=== PATIENT | male | born 1940 | race Caucasian/White ===

== ENCOUNTER 2020-10-13 10:40 | Emergency (ER) | payer OTHER, MEDICARE, SELFPAY ==
[2020-10-13 11:45] VITALS: BP 133/78; PULSE 122; RESP 20; TEMP 36.8; O2SAT 97; BMI 27.9
--- NOTE | 2020-10-13 12:02 | ED.MALEGU ---
HPI - Male Genitourinary General Chief complaint: Urogenital-Male Stated complaint: took too much laxitive. experiencing pain Time Seen by Provider: 10/13/20 12:01 Source: patient and family (spouse) Mode of arrival: ambulatory Limitations: no limitations History of Present Illness HPI Narrative: 80-YEAR-OLD MALE CAME IN FOR EVALUATION OF PAINFUL URINATION. PATIENT HAVING DIFFICULTY URINATION AND UNABLE TO URINATE, FEELING DISTENDED AND PAINFUL IN THE SUPRAPUBIC AREA. OTHERWISE NO FEVER, NO CHILLS. NO UPPER ABDOMINAL PAIN. NO NAUSEA, NO VOMITING. Related Data Previous Rx's Medication Instructions Recorded cefuroxime axetil 500 mg tablet 500 mg PO Q12H #20 tab 10/13/20 Allergies Allergy/AdvReac Type Severity Reaction Status Date / Time mirabegron [From Myrbetriq] Allergy Severe rash Verified 10/13/20 13:35 Opioids - Morphine Analogues Allergy Intermediate rash Verified 10/13/20 13:35 oxybutynin Allergy Intermediate rash Verified 10/13/20 13:35 Review of Systems Review of Systems: ALL OTHER SYSTEMS ARE REVIEWED AND ARE NEGATIVE CONSTITUTIONAL: REPORTS PER HPI AND REPORTS NO ADDITIONAL CONSTITUTIONAL COMPLAINTS EYES: REPORTS PER HPI AND REPORTS NO ADDITIONAL EYE COMPLAINTS REPORTS SYSTEM REVIEWED AND NO ADDITIONAL COMPLAINTS, EXCEPT DOCUMENTED CARDIOVASCULAR: REPORTS PER HPI AND REPORTS NO ADDITIONAL CARDIOVASCULAR COMPLAINTS RESPIRATORY: REPORTS PER HPI AND REPORTS NO ADDITIONAL RESPIRATORY COMPLAINTS GASTROINTESTINAL: REPORTS PER HPI AND REPORTS NO ADDITIONAL GASTROINTESTINAL COMPLAINTS GENITOURINARY: REPORTS NO ADDITIONAL FEMALE GENITOURINARY COMPLAINTS MUSCULOSKELETAL: REPORTS NO ADDITIONAL MUSCULOSKELETAL COMPLAINTS SKIN/BREAST: REPORTS SYSTEM REVIEWED AND NO ADDITIONAL COMPLAINTS, EXCEPT DOCU PSYCHIATRIC: REPORTS NO ADDITIONAL PSYCHIATRIC COMPLAINTS ENDOCRINE: REPORTS NO ADDITIONAL ENDOCRINE COMPLAINTS HEMATOLOGIC/LYMPHATIC: REPORTS NO ADDITIONAL HEMATOLOGIC/LYMPHATIC COMPLAINTS ALLERGIC/IMMUNOLOGIC: REPORTS NO ADDITIONAL ALLERGIC/IMMUNOLOGIC COMPLAINTS REPORTS SYSTEM REVIEWED AND NO ADDITIONAL COMPLAINTS, EXCEPT DOCUMENTED AND REPORTS ABNORMAL SPEECH PRESENT FOR[facility]LY [facility] Past Medical History Medical History Cholecystitis GERD (gastroesophageal reflux disease) HLD (hyperlipidemia) HTN (hypertension) Parkinsons Social History Social History Alcohol intake: never Smoked in Last 30 Days: No Use of substances other than those prescribed or required for medical reasons: No Advance Directives: Yes Advance Directives Information Provided: Yes Advance Directives on File: No Physical Exam Vital Signs: Vital Signs: Last Vital Signs Temp 98.2 F 10/13/20 11:45 Pulse 122 H 10/13/20 11:45 Resp 20 10/13/20 11:45 BP 133/78 10/13/20 11:45 Pulse Ox 97 10/13/20 11:45 Body Mass Index 27.9 VITAL SIGNS HAVE BEEN REVIEWED APPEARED TO BE CORRECT. BLOOD PRESSURE NORMAL. HEART RATE ELEVATED. RESPIRATION RATE NORMAL. TEMPERATURE NORMAL. OXYGEN SATURATION NORMAL. Appearance: Alert. Oriented X3. No acute distress. Head: Normal external exam. Normocephalic. Atraumatic. No Chiang signs noted. No raccoon eyes noted Eyes: PERRLA. EOMI. Conjunctiva and sclera normal. Eyelids normal. ENT: TM's Normal. Pharynx normal. Uvula midline. Moist mucous membranes. No trismus noted. No drooling noted. No muffled voice noted. Neck: Normal inspection. Neck supple. FROM. No adenopathy. Thyroid Normal. No meningeal signs. No neck mass noted. CVS: Normal heart rate and rhythm. Heart sound normal. No murmurs noted. Pulses normal throughout. Respiratory: No respiratory distress. Painless inspiration. Breath sounds normal. No wheezes/rales/rhonchi noted. Chest nontender. No accessory muscle usage noted or decreased air movement noted. Abdomen: Soft, suprapubic distension, suprapubic tenderness, no rebound tenderness, no guarding. Bowel sounds normal in all 4 quadrants. No distention noted. No organomegaly noted. No visible injury noted. Back: No CVA tenderness. Full range of motion noted. Skin: Skin warm and dry. Normal skin color. Normal skin turgor. No rashes/lesions/lacerations noted. Extremities: No lower extremity edema. Extremities exhibit normal range of motion. Extremities nontender. Neuro: Oriented X 3. No motor deficit. No sensory deficit. Reflexes normal. : Other: Uncircumcised penis tendon rash, no tenderness Kaushik no discharge. Course Course Course Narrative: Assessment and plan. The attention, if the head acid deficiency distal fine cyst in the, patient also has a UTI well starting the antibiotic. Follow-up with urologist. Patient does not meet criteria for SIRS, slight leukocytosis probably secondary to mild UTi, mild hyponatremia. MDM - Male Genitourinary Lab Data Attestation: I reviewed the patient's lab results. Result diagrams: 10/13/20 12:44 10/13/20 12:44 Labs: Lab Results 10/13/20 10/13/20 10/13/20 Range/Units 12:44 12:44 12:46 WBC 11.7 H (4.8-10.8) X10*3/uL RBC 4.07 L (4.60-5.80) X10*6/uL Hgb 11.8 L (14.0-18.0) g/dl Hct 34.2 L (42-52) % MCV 84.0 (80-98) fL MCH 29.0 (27.0-33.0) pg MCHC 34.5 (31.0-36.0) g/dl RDW 13.2 (11.0-16.0) % Plt Count 365 (160-400) X10*3/uL MPV 9.5 (9.4-12.4) fL Immature Gran % (Auto) 0.4 (0.0-0.4) % Neut % (Auto) 83.3 H (45-73) % Lymph % (Auto) 6.0 L (20-40) % [place] % (Auto) 10.0 (2-11) % Eos % (Auto) 0.1 (0-4) % Baso % (Auto) 0.2 (0-2) % Lymph # (Auto) 0.7 L (1.2-4.9) X10*3/uL [place] # (Auto) 1.2 (0.1-1.2) X10*3/uL Eos # (Auto) 0.0 (0.0-0.4) X10*3/uL Baso # (Auto) 0.0 (0.0-0.2) X10*3/uL Abs Immat Gran (auto) 0.05 H (0.00-0.03) X10*3/uL Absolute Neuts (auto) 9.7 H (2.0-8.3) X10*3/uL Absolute Nucleated RBC 0.000 (0.0-0.012) X10*3/uL Nucleated RBC % (auto) 0.0 (0.0-0.2) /100WBC Sodium 130 L (135-145) mmol/L Potassium 4.0 (3.3-5.1) mmol/L Chloride 96 (96-108) mmol/L Carbon Dioxide 24 (22-29) mmol/L Anion Gap 14 (12-20) BUN 12 (9-16) mg/dL Creatinine 0.82 (0.5-1.4) mg/dL Estim Creat Clear Calc 68.4 Estimated GFR > 60 Random Glucose 130 H (60-115) mg/dL Calcium 8.8 (8.4-10.2) mg/dL Urine Color YELLOW Urine Appearance CLOUDY Urine pH 8.0 (5.0-8.0) Ur Specific [place] 1.015 (1.005-1.025) Urine Protein 1+ H (NEG-TRACE) MG/DL Urine Glucose (UA) NEG (NEG) MG/DL Urine Ketones NEG (NEG) MG/DL Urine Blood 2+ H (NEG) Urine Nitrite POS H (NEG) Ur Leukocyte Esterase 2+ H (NEG) Urine RBC 5-9 H (0) /HPF Urine WBC 76-150 H (0-4) /HPF Urine WBC Clumps NOTED Ur Squamous Epith Cells NONE /LPF Urine Bacteria TRACE /LPF Discharge Plan Discharge Clinical Impression: Acute urinary retention Patient Disposition: Home, Self-Care Instructions: Urinary Retention in Men (ED), Urinary Tract Infection in Men (ED), [place] Catheter Placement and Care (ED) Prescriptions: New cefuroxime axetil 500 mg tablet 500 mg PO Q12H Qty: 20 RF: 0 Referrals: Rayray Galvez MD [Physician] - 2 days
[2020-10-13 12:50] LABS: MANUAL DIFF FLAG NO
[2020-10-13 12:54] LABS: Glucose Urine UA NEG (NEG); Leukocyte Esterase Urine 2+ (NEG); Nitrite Urine POS (NEG); Specific Gravity - Urine 1.015 (1.005-1.025); UACC Culture Trigger YES; Urine Blood 2+ (NEG); Urine Ketones NEG (NEG); Urine Protein 1+ MG/DL (NEG-TRACE)
[2020-10-13 12:55] LABS: Basophils Percent Auto 0.2 % (0-2); Eosinophils Percent Auto 0.1 % (0-4); Hematocrit 34.2 % (42-52); Hemoglobin 11.8 g/dl (14.0-18.0); Imm Gran Abs Auto 0.05 X10*3/uL (0.00-0.03); Imm Gran Pct Auto 0.4 % (0.0-0.4); Lymphocytes Absolute Auto 0.7 X10*3/uL (1.2-4.9); Mean Corpuscular HGB Conc 34.5 g/dl (31.0-36.0); Mean Platelet Volume 9.5 fL (9.4-12.4); Monocytes Absolute Auto 1.2 X10*3/uL (0.1-1.2); Neutrophils Absolute Auto 9.7 X10*3/uL (2.0-8.3); Neutrophils Percent Auto 83.3 % (45-73); Platelet Count 365 X10*3/uL (160-400); Red Blood Count 4.07 X10*6/uL (4.60-5.80); Red Cell Distribution Width 13.2 % (11.0-16.0); White Blood Count 11.7 X10*3/uL (4.8-10.8)
[2020-10-13 12:55] LABS: Appearance Urine CLOUDY; Color Urine YELLOW
[2020-10-13 13:08] LABS: Bacteria Urine TRACE /LPF; WBC Clumps Urine NOTED
[2020-10-13 13:21] LABS: Anion Gap 14 (12-20); Blood Urea Nitrogen 12 mg/dL (9-16); Calcium 8.8 mg/dL (8.4-10.2); Carbon Dioxide 24 mmol/L (22-29); Chloride 96 mmol/L (96-108); Creatinine Clr Calc Pharmacy 68.4; Estimated Glomerular Filt Rate > 60; Glucose Random 130 mg/dL (60-115); Sodium 130 mmol/L (135-145)
--- NOTE | 2020-10-13 14:10 | PC.NURSE ---
educated pt and about catheter, leg bag, and regular drainage bag. teach back noted.
--- NOTE | 2020-10-14 08:25 | MHC.CM.ED ---
Late entry from 10/13/2020 at 16:00: Patient was in the ER due to urinary retention. Mark was placed. Patient has never had a mark before. Sonia GUERRERO requesting TAYA be arranged. Referral made to [facility].
== END 2020-10-13 14:10 | disposition home or self-care (01) ==
PROVIDERS: Emergency Provider Emergency Medicine
DX: R33.9 Retention of urine, unspecified (principal); N39.0 Urinary tract infection, site not specified; I10 Essential (primary) hypertension; G20 Parkinson's disease
CPT/HCPCS: 36415; 51702; 80048; 81001; 85025; 87086; 87088; 87186; 99284

== ENCOUNTER 2023-11-20 05:45 | Emergency (ER) | payer OTHER, SELFPAY ==
--- NOTE | ~2023-11-20 | XR_ITS ---
EXAMINATION: XR CHEST CLINICAL INFORMATION: Shortness of breath COMPARISON: None available. TECHNIQUE: Frontal view of the chest was obtained. FINDINGS: Evaluation of portions of the bilateral lung apices is limited by obscuration from overlying face. Multiple EKG leads and wires overlie the chest. The lungs are mildly hypoexpanded, greater hypoexpansion of the right lung compared to left. There is crowding of lung markings. Within the limits of study, no focal consolidation, changes of overt pulmonary edema, significant pleural effusions or pneumothorax are seen. Assessment of the cardiomediastinal silhouette is limited due to hypoexpansion of the chest. Borderline normal cardiac size versus mild cardiomegaly. XR/XR chest 1V IMPRESSION: Limited evaluation. The lungs are mildly hypoexpanded with crowding of lung markings. No convincing radiographic evidence of pneumonia or changes of overt pulmonary edema. Electronically signed by: Laurent Coronado MD 11/20/2023 07:13 AM EDT
[2023-11-20 06:00] VITALS: BP 145/71; BP 160/108; PULSE 110; PULSE 95; RESP 18; TEMP 37.3; O2SAT 100; O2SAT 70; BMI 23.7
--- NOTE | 2023-11-20 06:15 | ED_ITS ---
HPI - SOB/Dyspnea General Chief Complaint: Dyspnea Stated Complaint: SOB 3x days, Wheezing,89% rm. air w/ duo neb Time Seen by Provider: 11/20/23 06:09 Source: patient and EMS Mode of arrival: EMS Limitations: no limitations History of Present Illness ED Provider: gokul SHEPHERD Narrative: Patient's history of Parkinson disease comes from home for increased shortness breath with stridor similar to that when he was at [facility] few days ago was at [facility] also prior to that was saturating 70% at room air improved after suction saturating 92% now Related Data Previous Rx's ?Medication ?Instructions ?Recorded cefuroxime axetil 500 mg tablet 500 mg PO Q12H #20 tabs 10/13/20 Allergies Allergy/AdvReac Type Severity Reaction Status Date / Time mirabegron [From Myrbetriq] Allergy Severe rash Verified 11/20/23 06:01 Opioids - Morphine Analogues Allergy Intermediate rash Verified 11/20/23 06:01 oxybutynin Allergy Intermediate rash Verified 11/20/23 06:01 Review of Systems 2 Review of Systems: Yes all other systems are reviewed and are negative [facility] Past Medical History Medical History Cholecystitis HLD (hyperlipidemia) HTN (hypertension) GERD (gastroesophageal reflux disease) Parkinsons Social History Social History Alcohol intake: never Smoked in Last 30 Days: No Use of substances other than those prescribed or required for medical reasons: No Advance Directives: No Advance Directives Information Provided: No Do you have a plan to hurt others: No Plan Physical Exam 2 Vital Signs: Vital Signs: Last Vital Signs Temp 99.2 F 11/20/23 06:00 Pulse 95 11/20/23 06:00 Resp 18 11/20/23 06:00 BP 145/71 H 11/20/23 06:00 Pulse Ox 100 11/20/23 06:00 O2 Del Method Aerosol Mask 11/20/23 06:00 BMI result Body Mass Index 23.7 Appearance: Alert. Oriented X3. No acute distress. Eyes: PERRLA, No Nystagmus ENT: Pharynx normal. Oral Mucosa moist Neck: Normal inspection. Neck supple. Flexed with limited mobility CVS: Normal heart rate and rhythm. Pulses normal. Respiratory: No respiratory distress. Equal air entry bilateral, no wheezing/rales/rhonchi Abdomen: Soft and nontender. Bowel sounds are present, no mass palpable, no CVA tenderness Skin: Skin warm and dry. Normal skin color. Normal skin turgor. Extremities: No lower extremity edema. No calf tenderness Neuro: Oriented X 3. No motor deficit. No sensory deficit.No cerebellar signs , cranial nerves II-XII intact Medications Administered Discontinued Medications Generic Name Dose Route Start Last Admin Trade Name Robertoq PRN Reason Stop Dose Admin Dexamethasone Sodium Phosphate 10 mg 11/20/23 06:08 11/20/23 06:17 Dexamethasone Sod Phosphate 10 Mg/Ml Vial IVPUSH 11/20/23 06:09 10 mg ONCE ONE Administration Medical Decision Making Medical Decision Making [facility] Narrative: Patient has stridor with Parkinson disease with severely flex neck likely the cause for difficulty in breathing patient is signed out Dr. Mei for further evaluation Lab Data [facility] Lab Attestation statement: I reviewed the patient's lab results. 11/20/23 06:15 11/20/23 06:15 Labs: Lab Results 11/20/23 Range/Units 06:15 WBC 11.8 H (4.8-10.8) X10*3/uL RBC 4.80 (4.60-5.80) X10*6/uL Hgb 13.9 L (14.0-18.0) g/dl Hct 41.7 L (42.0-52.0) % MCV 86.9 (80.0-98.0) fL MCH 29.0 (27.0-33.0) pg MCHC 33.3 (31.0-36.0) g/dl RDW 14.6 (11.0-16.0) % Plt Count 278 (160-400) X10*3/uL MPV 10.7 (9.4-12.4) fL Immature Gran % (Auto) 0.6 H (0.0-0.4) % Neut % (Auto) 80.7 H (45-73) % Lymph % (Auto) 7.8 L (20-40) % [place] % (Auto) 9.0 (2-11) % Eos % (Auto) 1.4 (0-4) % Baso % (Auto) 0.5 (0-2) % Lymph # (Auto) 0.9 L (1.2-4.9) X10*3/uL [place] # (Auto) 1.1 (0.1-1.2) X10*3/uL Eos # (Auto) 0.2 (0.0-0.4) X10*3/uL Baso # (Auto) 0.1 (0.0-0.2) X10*3/uL Abs Immat Gran (auto) 0.07 H (0.00-0.03) X10*3/uL Absolute Neuts (auto) 9.5 H (2.0-8.3) x10*3/uL Absolute Nucleated RBC 0.000 (0.0-0.012) X10*3/uL Nucleated RBC % (auto) 0.0 (0.0-0.2) /100WBC Sodium 142 (135-145) mmol/L Potassium 4.8 (3.3-5.1) mmol/L Chloride 106 (96-108) mmol/L Carbon Dioxide 25 (22-29) mmol/L Anion Gap 16 (12-20) BUN 27 H (9-16) mg/dL Creatinine 0.93 (0.5-1.4) mg/dL Estim Creat Clear Calc 50.3 Estimated GFR > 60 Random Glucose 127 H (60-115) mg/dL Calcium 9.4 D (8.4-10.2) mg/dL Total Bilirubin 0.6 (0.0-1.0) mg/dL AST 40 H (5-37) U/L ALT 77 H (0-40) U/L Alkaline Phosphatase 158 H (39-117) U/L B-Natriuretic Peptide 31 (<100) pg/mL Total Protein 7.7 (6.5-8.0) g/dL Albumin 3.9 (3.5-5.0) g/dL Influenza Type A (PCR) NEGATIVE (Negative) Influenza Type B (PCR) NEGATIVE (Negative) RSV RNA Qual (PCR) NEGATIVE (Negative) SARS-CoV-2 RNA (RT-PCR) NEGATIVE (Negative) Discharge Plan Discharge Clinical Impression: Shortness of breath Patient Disposition: Still a Patient Prescriptions: No Action cefuroxime axetil 500 mg tablet 500 mg PO Q12H Qty: 20 0RF Print Language: Greenlandic
[2023-11-20] MEDS: dexAMETHasone sod phosphate 10 MG/ML VIAL IVPUSH (06:17)
[2023-11-20 06:21] LABS: MANUAL DIFF FLAG NO
[2023-11-20 06:34] LABS: Basophils Absolute Auto 0.1 X10*3/uL (0.0-0.2); Basophils Percent Auto 0.5 % (0-2); Eosinophils Absolute Auto 0.2 X10*3/uL (0.0-0.4); Eosinophils Percent Auto 1.4 % (0-4); Hematocrit 41.7 % (42.0-52.0); Hemoglobin 13.9 g/dl (14.0-18.0); Imm Gran Abs Auto 0.07 X10*3/uL (0.00-0.03); Imm Gran Pct Auto 0.6 % (0.0-0.4); Lymphocytes Absolute Auto 0.9 X10*3/uL (1.2-4.9); Lymphocytes Percent Auto 7.8 % (20-40); Mean Corpuscular HGB Conc 33.3 g/dl (31.0-36.0); Mean Corpuscular Volume 86.9 fL (80.0-98.0); Mean Platelet Volume 10.7 fL (9.4-12.4); Monocytes Absolute Auto 1.1 X10*3/uL (0.1-1.2); Neutrophils Absolute Auto 9.5 x10*3/uL (2.0-8.3); Neutrophils Percent Auto 80.7 % (45-73); Platelet Count 278 X10*3/uL (160-400); Red Cell Distribution Width 14.6 % (11.0-16.0); White Blood Count 11.8 X10*3/uL (4.8-10.8)
[2023-11-20 06:36] LABS: Alanine Aminotransferase 77 U/L (0-40); Albumin Level 3.9 g/dL (3.5-5.0); Alkaline Phosphatase 158 U/L (39-117); Anion Gap 16 (12-20); Aspartate Amino Transferase 40 U/L (5-37); Bilirubin Total 0.6 mg/dL (0.0-1.0); Blood Urea Nitrogen 27 mg/dL (9-16); Calcium 9.4 mg/dL (8.4-10.2); Carbon Dioxide 25 mmol/L (22-29); Chloride 106 mmol/L (96-108); Creatinine Clr Calc Pharmacy 50.3; Estimated Glomerular Filt Rate > 60; Glucose Random 127 mg/dL (60-115); Potassium 4.8 mmol/L (3.3-5.1); Sodium 142 mmol/L (135-145); Total Protein 7.7 g/dL (6.5-8.0)
[2023-11-20 06:41] LABS: B Type Natriuretic Peptide 31 pg/mL (<100)
--- NOTE | 2023-11-20 06:53 | PC.NURSE ---
Report given to Charo GUERRERO
[2023-11-20 06:58] LABS: Influenza A PCR NEGATIVE (Negative); Influenza B PCR NEGATIVE (Negative); Resp Syncy Virus RNA Qual PCR NEGATIVE (Negative); SARS COV2 PCR INHOUSE NEGATIVE (Negative)
[2023-11-20 07:17] VITALS: BP 126/64; PULSE 86; RESP 16; O2SAT 100
[2023-11-20] MEDS: Albuterol Sulfate (0.083%) 2.5 MG/3 ML VIAL.NEB INHALE (07:25)
[2023-11-20 07:28] VITALS: PULSE 85; RESP 16; O2SAT 100
--- NOTE | 2023-11-20 08:20 | PC.NURSE ---
Resumed care of pt at 0700. Pt resting in bed with at bedside. Pt a/ox3, inspiratory/expiratory stridor heard, pt states he feels SOB, increased WOB noted. Respiratory called to bedside along with MD Minor to evaluate pt. Pt maintaining O2 sat 100% on RA. Per MD Minor, pt will receive a duo-neb treatment, pt verbalizes feeling better after last treatment. S1 and S2 heard, NSR on case monitor, HR- 80s, abdomen soft and non-tender. Pt and updated on plan of care, call wong within reach, all needs met at this time.
[2023-11-20 11:19] VITALS: BP 120/62; PULSE 80; RESP 16; TEMP 37.3; O2SAT 98
[2023-11-20 11:21] VITALS: BP 120/62; PULSE 80; RESP 18; TEMP 37.3; O2SAT 98
== END 2023-11-20 11:22 | disposition home or self-care (01) ==
PROVIDERS: Internal Medicine; Emergency Provider Emergency Medicine Emergency Medical Services; PCP Internal Medicine
DX: R06.02 Shortness of breath (principal); R06.1 Stridor; G20.A1 Parkinson's disease without dyskinesia, without mention of fluctuations; I10 Essential (primary) hypertension; Z03.818 Encounter for observation for suspected exposure to other biological agents ruled out; Z79.899 Other long term (current) drug therapy
CPT/HCPCS: 0241U; 36415; 71045; 80053; 83880; 85025; 94640; 96374; 99285; J1100

== ENCOUNTER 2023-11-23 19:28 | Inpatient (IN) | payer OTHER, SELFPAY ==
--- NOTE | ~2023-11-23 | XR_ITS ---
EXAMINATION: XR CHEST CLINICAL INFORMATION: Shortness of breath COMPARISON: 11/20/2023 TECHNIQUE: Frontal view of the chest was obtained. FINDINGS: No significant abnormality is noted involving the heart, lungs, mediastinum, bony thorax or soft tissues. XR/XR chest 1V IMPRESSION: No interval change. No active chest disease. Electronically signed by: Aleksander Mesa MD 11/23/2023 09:14 PM EDT RP
--- NOTE | ~2023-11-23 | CT_ITS ---
EXAMINATION: CT CHEST WITHOUT CONTRAST CLINICAL INFORMATION: Prior abnormal imaging. COMPARISON: Chest radiographs 11/24/2023 TECHNIQUE: Multidetector volumetric CT imaging of the chest was done. Axial MIP volume rendering provided. Sagittal and coronal reformatted images were obtained. This CT examination was performed using dose optimization techniques as appropriate, variously including the following: *Automated exposure control *Adjustment of mA and/or kV according to patient size (this includes techniques or standardized protocols for targeted exams where dose is matched to indication/reason for exam; i.e. extremities or head) *Use of iterative reconstruction technique DLP: 345 mGy-cm FINDINGS: LUNGS: 3 mm nodule left upper lobe on image 134. 7 mm left upper lobe nodule on image 185. 1.4 cm nodule left upper lobe in image 191. 4 mm nodule left upper lobe on image 199. 3 mm nodule left upper lobe on image 195. 4 mm nodule in the lingula on image 284. 1.2 cm nodule right upper lobe on image 218. 1.1 cm subpleural right upper lobe nodule on image 180. 5 mm right lower lobe nodule on image 209. 4 mm nodules in the right upper lobe on images 235 and 236. 7 mm right middle lobe nodule on image 249. 5 mm right middle lobe nodule on image 261. There are innumerable nodules along the right major fissure with the largest measuring 9 mm. There is nodular thickening of the right minor and right major fissures. Bilateral lower lobe nodular consolidation and bronchial wall thickening. Area of central cavitation measures 1.2 cm. Many additional nodules are secured by the lower lobe consolidation. There are peribronchial opacities in the right upper lobe. MEDIASTINUM: No bulky mediastinal or hilar lymphadenopathy. Great vessels are of normal caliber. Heart is enlarged. No pericardial effusion CORONARY ARTERY CALCIFICATION: Moderate. PLEURA: Small left pleural effusion. [id number] right pleural effusion. AXILLA: No lymphadenopathy. UPPER ABDOMEN: Unremarkable to the extent seen. OSSEOUS STRUCTURES: Old healed left-sided rib fractures. CT/CT chest wo IV con IMPRESSION: Numerous bilateral pulmonary nodules measuring up to 1.4 cm. There is bronchial wall thickening with nodular consolidation in the lower lobes. There is nodular thickening of the right minor and major fissures. The appearance is concerning for malignancy including lymphangitic spread of tumor. There is a cavitary focus within the right lower lobe consolidation measuring 1.2 cm. Small to moderate bilateral pleural effusions. Electronically signed by: Lane Wesley MD 11/25/2023 11:29 AM EDT
--- NOTE | ~2023-11-23 | XR_ITS ---
EXAMINATION: XR CHEST CLINICAL INFORMATION: Oxygen desaturations COMPARISON: 11/23/2023 TECHNIQUE: Frontal view of the chest was obtained. FINDINGS: Lung volumes are symmetric. There is mild patchy ill-defined right midlung opacity. No appreciable pneumothorax. Blunting of the right costophrenic angle may reflect small pleural effusion versus pleural thickening. The cardiomediastinal contour is unremarkable. No acute osseous findings are seen. XR/XR chest 1V IMPRESSION: Mild patchy ill-defined right midlung opacity, which could reflect developing consolidation in the proper clinical setting. Small right pleural effusion versus pleural thickening. Electronically signed by: Charlie Cassidy MD 11/24/2023 03:22 AM EDT
--- NOTE | ~2023-11-23 | CT_ITS ---
EXAMINATION: CT SOFT TISSUE NECK WITH CONTRAST CLINICAL INFORMATION: Reason for Exam known thyroid mass? unknown degree of obstruction COMPARISON: None available. TECHNIQUE: Following the intravenous administration of 80 mL of Omnipaque 350 intravenous contrast, helical imaging was performed in the axial plane with generation of coronal and sagittal reformatted images. This CT examination was performed using dose optimization techniques as appropriate, variously including the following: *Automated exposure control *Adjustment of mA and/or kV according to patient size (this includes techniques or standardized protocols for targeted exams where dose is matched to indication/reason for exam; i.e. extremities or head) *Use of iterative reconstruction technique DLP: 472 mGy-cm FINDINGS: Suboptimal assessment due to patient positioning and motion artifact. The nasopharynx, oropharynx, and hypopharynx are patent. No mucosal pharyngeal abnormality is seen. The parapharyngeal fat is preserved. There appears to be asymmetric fatty infiltration of the right parotid gland. The tool specialist and submandibular spaces appear grossly normal and symmetric bilaterally, suboptimally assessed due to artifact. No significant lymphadenopathy is seen. Epiglottis appears unremarkable. There are calcifications at the bilateral common carotid artery bifurcations. The thyroid gland is not adequately assessed due to artifact. There is some motion artifact in the airway at this level, though the airway does appear to remain patent. Limited detail evaluation of the included upper lungs due to motion artifact. However, several bilateral nodules are present, measuring up to 1.1 cm in the mid right lung. Small right pleural effusion is partially visualized. Visualized portions of the brain parenchyma are grossly unremarkable. The mastoid air cells are well aerated. The paranasal sinuses are clear. The visualized orbits are unremarkable. The mandibular condyles are well-seated in the condylar fossa. There is degenerative change at the atlantodens articulation. Anterolisthesis of C4 on C5 may be chronic/degenerative in nature, as there is severe facet arthropathy of the upper to mid cervical spine. Diffuse disc space narrowing. Endplate osteophytes noted in the lower cervical spine. CT/CT soft tissue neck w IV con IMPRESSION: 1. Suboptimal assessment due to patient positioning and motion artifact. The thyroid gland is not adequately delineated in this setting, and correlation with recent or follow-up ultrasound is recommended given the clinical history. 2. Motion artifact also affects evaluation of the airway, though this appears to remain patent. 3. Partially visualized bilateral lung nodules, measuring up to 1.1 cm in the right lung. These are of uncertain chronicity in the absence of prior CT imaging for comparison and may be infectious/inflammatory or could also be seen with metastatic disease. Correlation with patient history is recommended along with short-term follow-up chest CT. 4. Small right pleural effusion. 5. Degenerative changes of the cervical spine. Electronically signed by: Charlie Cassidy MD 11/24/2023 04:14 AM EDT
[2023-11-23 19:47] VITALS: BP 197/85; PULSE 98; O2SAT 99
[2023-11-23 19:49] VITALS: BP 139/65; PULSE 86; RESP 16; TEMP 36.9; O2SAT 96; BMI 21.7
--- NOTE | 2023-11-23 19:54 | ED.AMS ---
HPI - Altered Mental Status General Chief Complaint: Altered Mental Status Stated Complaint: refusing meds,confused, wandering streets at night Time Seen by Provider: 11/23/23 19:51 Source: family Mode of arrival: EMS Limitations: no limitations History of Present Illness ED Provider: gokul SHEPHERD narrative: Patient is 83 years old with history of dementia and Parkinson disease lately getting more confused been fighting more with his whom he been for more than 60 years wandering behavior and not taking his medication family not sure what plan would be unable to manage Related Data Previous Rx's ?Medication ?Instructions ?Recorded cefuroxime axetil 500 mg tablet 500 mg PO Q12H #20 tabs 10/13/20 Allergies Allergy/AdvReac Type Severity Reaction Status Date / Time mirabegron [From Myrbetriq] Allergy Severe rash Verified 11/23/23 19:50 Opioids - Morphine Analogues Allergy Intermediate rash Verified 11/23/23 19:50 oxybutynin Allergy Intermediate rash Verified 11/23/23 19:50 Review of Systems Review of Systems: Yes Unobtainable due to mental condition [facility] Past Medical History Medical History Cholecystitis HLD (hyperlipidemia) HTN (hypertension) GERD (gastroesophageal reflux disease) Parkinsons Social History Social History Alcohol intake: never Smoked in Last 30 Days: No Use of substances other than those prescribed or required for medical reasons: No Advance Directives: No Advance Directives Information Provided: No Do you have a plan to hurt others: No Plan Physical Exam ED Vital Signs: Vital Signs - 24 hr 11/23/23 19:49 11/23/23 20:58 11/23/23 21:33 Temperature 98.5 F 97.1 F Pulse Rate 86 89 83 Respiratory Rate 16 14 Blood Pressure 139/65 160/73 H 109/55 L Pulse Oximetry 96 96 Oxygen Delivery Method Room Air Room Air 11/24/23 00:35 11/24/23 01:09 11/24/23 01:11 Temperature 99.1 F Pulse Rate 89 77 Respiratory Rate 20 15 Blood Pressure 135/61 86/42 L 97/40 L Pulse Oximetry 94 96 Oxygen Delivery Method Room Air Room Air BMI result Body Mass Index 21.7 Appearance: Alert. And awake. No acute distress. Eyes: No pallor or icterus ENT: Pharynx normal. Oral Mucosa moist tracheomalacia auditory wheeze Neck: Normal inspection. Neck flexed unable to extend fully CVS: Normal heart rate and rhythm. Pulses normal. Respiratory: No respiratory distress. Equal air entry bilateral, no wheezing/rales/rhonchi Abdomen: Soft and nontender. Bowel sounds are present, no mass palpable, no CVA tenderness Skin: Skin warm and dry. Normal skin color. Normal skin turgor. Extremities: No lower extremity edema. No calf tenderness Neuro: Oriented X 1-2. Limited lower extremity movements No sensory deficit.No cerebellar signs , cranial nerves II-XII intact Medications Administered Generic Name Dose Route Start Last Admin Trade Name Freq PRN Reason Stop Dose Admin Sodium Chloride 1,000 mls @ 999 mls/hr 11/24/23 01:09 11/24/23 01:10 Ns IV 11/24/23 02:09 999 mls/hr .Q1H1M ONE Administration Discontinued Medications Generic Name Dose Route Start Last Admin Trade Name Freq PRN Reason Stop Dose Admin Aspirin 81 mg 11/23/23 20:43 11/23/23 20:58 Aspirin Enteric Coated 81 Mg Tablet. PO 11/23/23 20:44 81 mg ONCE ONE Administration Atorvastatin Calcium 40 mg 11/23/23 20:43 11/23/23 20:58 Atorvastatin Calcium 40 Mg Tablet PO 11/23/23 20:44 40 mg ONCE ONE Administration Carbidopa/Levodopa 1.5 tab 11/23/23 20:43 11/23/23 20:58 Carbidopa/Levodopa 25/100 Tablet PO 11/23/23 20:44 1.5 tab ONCE ONE Administration Sodium Chloride 1,000 mls @ 999 mls/hr 11/23/23 20:42 11/23/23 22:09 Ns IV 11/23/23 21:42 Infused .Q1H1M ONE Infusion Metoprolol Tartrate 25 mg 11/23/23 20:43 11/23/23 20:58 Metoprolol Tartrate 25 Mg Tablet PO 11/23/23 20:44 25 mg ONCE ONE Administration Protocol Pramipexole Dihydrochloride 0.75 mg 11/23/23 20:43 11/23/23 20:58 Pramipexole Di-Hcl 0.25 Mg Tablet PO 11/23/23 20:44 0.75 mg ONCE ONE Administration Medical Decision Making Medical Decision Making [facility] Narrative: Patient's dementia with behavior changes will get case management involved for placement patient had sodium of 150 will give IV fluids Differential Diagnosis Differential Diagnoses: The differential diagnosis associated with the presentation includes Dementia with psychotic behavior/UTI/metabolic encephalopathy/hypernatremia/hyponatremia Admission/Observation Consideration of admission/observation: Escalation of care including admission/observation considered Lab Data [facility] Lab Attestation statement: I reviewed the patient's lab results. 11/23/23 20:08 11/23/23 20:08 Labs: Lab Results 11/23/23 11/23/23 11/24/23 Range/Units 20:08 20:16 00:31 WBC 9.2 (4.8-10.8) X10*3/uL RBC 4.56 L (4.60-5.80) X10*6/uL Hgb 13.1 L (14.0-18.0) g/dl Hct 39.5 L (42.0-52.0) % MCV 86.6 (80.0-98.0) fL MCH 28.7 (27.0-33.0) pg MCHC 33.2 (31.0-36.0) g/dl RDW 14.6 (11.0-16.0) % Plt Count 347 (160-400) X10*3/uL MPV 9.4 (9.4-12.4) fL Immature Gran % (Auto) 0.3 (0.0-0.4) % Neut % (Auto) 79.9 H (45-73) % Lymph % (Auto) 9.6 L (20-40) % [place] % (Auto) 9.8 (2-11) % Eos % (Auto) 0.2 (0-4) % Baso % (Auto) 0.2 (0-2) % Lymph # (Auto) 0.9 L (1.2-4.9) X10*3/uL [place] # (Auto) 0.9 (0.1-1.2) X10*3/uL Eos # (Auto) 0.0 (0.0-0.4) X10*3/uL Baso # (Auto) 0.0 (0.0-0.2) X10*3/uL Abs Immat Gran (auto) 0.03 (0.00-0.03) X10*3/uL Absolute Neuts (auto) 7.3 (2.0-8.3) x10*3/uL Absolute Nucleated RBC 0.000 (0.0-0.012) X10*3/uL Nucleated RBC % (auto) 0.0 (0.0-0.2) /100WBC Sodium 150 H (135-145) mmol/L Potassium 4.0 (3.3-5.1) mmol/L Chloride 112 H (96-108) mmol/L Carbon Dioxide 25 (22-29) mmol/L Anion Gap 17 (12-20) BUN 29 H (9-16) mg/dL Creatinine 0.87 (0.5-1.4) mg/dL Estim Creat Clear Calc 52.2 Estimated GFR > 60 POC Glucose 130 H (60-115) mg/dL Random Glucose 120 H (60-115) mg/dL Calcium 9.5 (8.4-10.2) mg/dL Total Bilirubin 0.7 (0.0-1.0) mg/dL AST 28 (5-37) U/L ALT 39 (0-40) U/L Alkaline Phosphatase 106 (39-117) U/L Troponin I High Sens 8.7 (<3.5-35.0) ng/L Total Protein 7.4 (6.5-8.0) g/dL Albumin 3.8 (3.5-5.0) g/dL Urine Color Yellow Urine Appearance Clear Urine pH 5.5 (5.0-9.0) Ur Specific [place] 1.025 (1.005-1.025) Urine Protein 30 (1+) H (Neg-Trace) mg/dL Urine Glucose (UA) Negative (Negative) mg/dL Urine Ketones 15 (Negative) mg/dL Urine Blood Negative (Negative) Urine Nitrite Negative (Negative) Ur Leukocyte Esterase Small (1+) H (Negative) Urine RBC 0-2 (0-2) /HPF Urine WBC 0-5 (0-5) /HPF Ur Squamous Epith Cells 0-2 (0-2) /HPF Urine Bacteria None Seen (None Seen) Hyaline Casts 0-2 (0-2) /LPF Independent Interpretation I performed an independent interpretation of an: EKG and Plain X-Ray Interpretation: Normal sinus rhythm heart rate 95 beats per minute LVH no acute STT wave changes no acute ischemia Radiology Impression Discussion of test interpretation with radiology: I have reviewed the radiologist's reading. Radiologist Impression: [id number] [place] [address] XRay Report Signed Patient: Simeon Mahoney MR#: [id number] : 1940 Acct:[id number] Age/Sex: 83 / M ADM Date: 11/23/23 Loc: .ED Attending Dr: Ordering Physician: Manny Guerrero MD Date of Service: 11/23/23 Procedure(s): XR chest 1V Accession Number(s): [id number] cc: Physician,Unknown ; Manny Guerrero MD~ EXAMINATION: XR CHEST CLINICAL INFORMATION: Shortness of breath COMPARISON: 11/20/2023 TECHNIQUE: Frontal view of the chest was obtained. FINDINGS: No significant abnormality is noted involving the heart, lungs, mediastinum, bony thorax or soft tissues. XR/XR chest 1V IMPRESSION: No interval change. No active chest disease. Electronically signed by: Aleksander Mesa MD 11/23/2023 09:14 PM EDT Dictated By: Aleksander Mesa MD Signed By: <Electronically signed by Aleksander Mesa MD in OV> 11/23/232113 DD/ 1950 Discharge Plan Discharge Clinical Impression: Dementia with behavioral disturbance Patient Disposition: Still a Patient Prescriptions: No Action cefuroxime axetil 500 mg tablet 500 mg PO Q12H Qty: 20 0RF Print Language: Armenian
--- NOTE | 2023-11-23 19:55 | ECG_ITS ---
Test Reason : AMS Blood Pressure : / mmHG Vent. Rate : 095 BPM Atrial Rate : 095 BPM P-R Int : 156 ms QRS Dur : 084 ms QT Int : 386 ms P-R-T Axes : 030 -06 038 degrees QTc Int : 485 ms Normal sinus rhythm Minimal voltage criteria for LVH, may be normal variant ( Sesar product ) Borderline ECG When compared with ECG of 02-JUL-2005 13:37, No significant change was found Referred By: Manny Guerrero Electronically Signed By:DAKOTA ESTRADA
[2023-11-23 20:11] LABS: MANUAL DIFF FLAG NO
[2023-11-23 20:15] LABS: Basophils Percent Auto 0.2 % (0-2); Eosinophils Percent Auto 0.2 % (0-4); Hematocrit 39.5 % (42.0-52.0); Hemoglobin 13.1 g/dl (14.0-18.0); Imm Gran Abs Auto 0.03 X10*3/uL (0.00-0.03); Imm Gran Pct Auto 0.3 % (0.0-0.4); Lymphocytes Absolute Auto 0.9 X10*3/uL (1.2-4.9); Lymphocytes Percent Auto 9.6 % (20-40); Mean Corpuscular HGB Conc 33.2 g/dl (31.0-36.0); Mean Corpuscular Hemoglobin 28.7 pg (27.0-33.0); Mean Corpuscular Volume 86.6 fL (80.0-98.0); Mean Platelet Volume 9.4 fL (9.4-12.4); Monocytes Absolute Auto 0.9 X10*3/uL (0.1-1.2); Monocytes Percent Auto 9.8 % (2-11); Neutrophils Absolute Auto 7.3 x10*3/uL (2.0-8.3); Neutrophils Percent Auto 79.9 % (45-73); Platelet Count 347 X10*3/uL (160-400); Red Blood Count 4.56 X10*6/uL (4.60-5.80); Red Cell Distribution Width 14.6 % (11.0-16.0); White Blood Count 9.2 X10*3/uL (4.8-10.8)
[2023-11-23 20:28] LABS: Alanine Aminotransferase 39 U/L (0-40); Albumin Level 3.8 g/dL (3.5-5.0); Alkaline Phosphatase 106 U/L (39-117); Anion Gap 17 (12-20); Aspartate Amino Transferase 28 U/L (5-37); Bilirubin Total 0.7 mg/dL (0.0-1.0); Blood Urea Nitrogen 29 mg/dL (9-16); Calcium 9.5 mg/dL (8.4-10.2); Carbon Dioxide 25 mmol/L (22-29); Chloride 112 mmol/L (96-108); Creatinine Clr Calc Pharmacy 52.2; Estimated Glomerular Filt Rate > 60; Glucose Random 120 mg/dL (60-115); Sodium 150 mmol/L (135-145); Total Protein 7.4 g/dL (6.5-8.0)
[2023-11-23 20:34] LABS: Troponin-I High Sensitivity 8.7 ng/L (<3.5-35.0)
[2023-11-23 20:35] LABS: Appearance Urine Clear; Color Urine Yellow; Glucose Urine UA Negative (Negative); Leukocyte Esterase Urine Small (1+) (Negative); Nitrite Urine Negative (Negative); PH 5.5 (5.0-9.0); Specific Gravity - Urine 1.025 (1.005-1.025); UMIC TRIGGER UACC YES; Urine Blood Negative (Negative); Urine Ketones 15 mg/dL (Negative); Urine Protein 30 (1+) mg/dL (Neg-Trace)
[2023-11-23] MEDS: 0.9 % Sodium Chloride 1,000 ML 999 ML IV (20:57)
[2023-11-23 20:58] VITALS: BP 160/73; PULSE 89
[2023-11-23] MEDS: Carbidopa/Levodopa 25/100 TABLET 1.5 TAB PO (20:58)
[2023-11-23] MEDS: Metoprolol Tartrate 25 MG TABLET PO (20:58)
[2023-11-23] MEDS: Atorvastatin Calcium 40 MG TABLET PO (20:58)
[2023-11-23] MEDS: Pramipexole Di-HCL 0.25 MG TABLET 0.75 MG PO (20:58)
[2023-11-23] MEDS: Aspirin Enteric Coated 81 MG TABLET.DR PO (20:58)
[2023-11-23 21:19] LABS: Bacteria Urine None Seen (None Seen); Hyaline Casts Urine 0-2 /LPF (0-2); RBC Urine 0-2 /HPF (0-2); Squamous Epithelial Cell Urine 0-2 /HPF (0-2); UACC Culture Trigger YES; WBC Urine 0-5 /HPF (0-5)
[2023-11-23 21:33] VITALS: BP 109/55; PULSE 83; RESP 14; TEMP 36.2; O2SAT 96
--- NOTE | 2023-11-23 23:37 | MHC.CM.ED ---
CM met with patient at the request of Dr. Guerrero and primary RN. Pt has throat CA with mets, Parkinson's, GERD. Pt is not undergoing CA treatments at this time. Pt is wandering at night and has left the house and has driven his car. Pt has not been eating. Drinks thin liquids. Had a barium swallow at [facility]. and family do not know the results and do not know if there are any food consistency restrictions. cannot tell CM just what he eats at home, but says soft food and ice cream. Takes pills whole in yogurt. Pt thought his was trying to harm him tonight with his medications. Pt was seen at [facility] 11/13-11/17 and [facility]. Pt was also seen at [facility] on 11/20 for stridor, evaluated and discharged home. is not interested in speaking about hospice or LTC. Daughter is concerned that her father may need LTC in the future. Family will bring in HCP. Daughter Tessy ([phone]) is the HCP. Pt uses a walker. CM spoke with family about hospice care (family had questions) and they are not interested in informational meeting. Discussed STR. is hesitant. Discussed private home help. Discussed placing locks on the door and alarms to keep patient from leaving at night. Explained that all keys must be kept from the patient. CM also explained that she could take him home with his existing services and that family could consider private pay help. Also spoke about [facility] and a referral for some services at home. Plan: Pt will stay overnight. Will have PT and swallow evaluation. CM will speak with family in the morning regarding evaluations and plan moving forward. No referrals placed at this time. CM will need to speak with [place] coordinator about services available for this patient. CM will follow for discharge planning.
[2023-11-24] VITALS (13 sets, daily range): BP systolic 86–167; BP diastolic 40–73; PULSE 67–93; RESP 12–20; TEMP 36.1–37.3; O2SAT 89–99
--- NOTE | 2023-11-24 | ECG_ITS ---
Test Reason : hi heart rate Blood Pressure : / mmHG Vent. Rate : 079 BPM Atrial Rate : 079 BPM P-R Int : 154 ms QRS Dur : 086 ms QT Int : 382 ms P-R-T Axes : 044 000 015 degrees QTc Int : 438 ms Normal sinus rhythm Normal ECG When compared with ECG of 24-NOV-2023 02:44, Nonspecific T wave abnormality is no longer Present Referred By: Francy Stout Electronically Signed By:DAKOTA ESTRADA
--- NOTE | 2023-11-24 00:24 | PC.NURSE ---
2300- this rn assumed care of pt, pt alert to self only, confused at baseline. pt noted to have stridor at this time, pt sating 98% on room air, according to family this is baseline for pt due to cancer. aware.
--- NOTE | 2023-11-24 00:25 | PC.NURSE ---
due to pt being elopement risk, elopement bracelet placed on pt for safety.
--- NOTE | 2023-11-24 00:41 | PC.NURSE ---
this rn noted pt to be diaphoretic and wheezing. pt POC obtained, rectal temp obtained. pt reports he feels short of breath. aware, no new orders. compensation manager Maya aware.
[2023-11-24 00:43] LABS: Glucose, Whole Blood 130 mg/dL (60-115)
[2023-11-24] MEDS: 0.9 % Sodium Chloride 1,000 ML 999 ML IV (01:10)
--- NOTE | 2023-11-24 01:12 | PC.NURSE ---
pt blood pressure noted to be low, called to bedside. 1 liter bolus administered.
[2023-11-24 01:25] LABS: Influenza A PCR NEGATIVE (Negative); Influenza B PCR NEGATIVE (Negative); Resp Syncy Virus RNA Qual PCR NEGATIVE (Negative); SARS COV2 PCR INHOUSE NEGATIVE (Negative)
--- NOTE | 2023-11-24 02:25 | PC.NURSE ---
pt noted to have labored breathing, pt reporting shortness of breath and chest pain. respiratory called to bedside, aware.
--- NOTE | 2023-11-24 02:28 | ECG_ITS ---
Test Reason : REPEAT Blood Pressure : / mmHG Vent. Rate : 074 BPM Atrial Rate : 074 BPM P-R Int : 154 ms QRS Dur : 086 ms QT Int : 380 ms P-R-T Axes : 033 -09 025 degrees QTc Int : 421 ms Normal sinus rhythm Nonspecific T wave abnormality Abnormal ECG When compared with ECG of 23-NOV-2023 19:58, Nonspecific T wave abnormality now evident in Lateral leads QT has shortened Referred By: Karrie Wheat Electronically Signed By:DAKOTA ESTRADA
--- NOTE | 2023-11-24 02:47 | PC.NURSE ---
18G placed in right forearm, labs obtained and sent. pt on 2L nasal cannula for comfort. This RN, Antonio GUERRERO and at bedside, at this time pt reports he would like to be DNI/DNR. pt reports he does not want chest compressions or any invasion airways.
[2023-11-24 02:50] LABS: Venous Blood Gas Refer to POC result
[2023-11-24 02:51] LABS: MANUAL DIFF FLAG NO
[2023-11-24 02:52] LABS: Basophils Percent Auto 0.2 % (0-2); Eosinophils Percent Auto 0.3 % (0-4); Hematocrit 37.8 % (42.0-52.0); Hemoglobin 12.1 g/dl (14.0-18.0); Imm Gran Abs Auto 0.06 X10*3/uL (0.00-0.03); Imm Gran Pct Auto 0.6 % (0.0-0.4); Lymphocytes Absolute Auto 0.6 X10*3/uL (1.2-4.9); Lymphocytes Percent Auto 6.5 % (20-40); Mean Corpuscular Hemoglobin 28.4 pg (27.0-33.0); Mean Corpuscular Volume 88.7 fL (80.0-98.0); Mean Platelet Volume 9.2 fL (9.4-12.4); Monocytes Absolute Auto 0.9 X10*3/uL (0.1-1.2); Monocytes Percent Auto 9.3 % (2-11); Neutrophils Absolute Auto 8.1 x10*3/uL (2.0-8.3); Neutrophils Percent Auto 83.1 % (45-73); Platelet Count 304 X10*3/uL (160-400); Red Blood Count 4.26 X10*6/uL (4.60-5.80); Red Cell Distribution Width 14.6 % (11.0-16.0); White Blood Count 9.8 X10*3/uL (4.8-10.8)
[2023-11-24 02:54] LABS: VBG Base Excess 0.9 mmol/L; VBG HCO3 28 mmol/L (22-26); VBG pCO2 59 mmHg; VBG pH 7.28 (7.32-7.43); VBG pO2 34 mmHg
[2023-11-24 02:58] LABS: INTERNATIONAL NORM RATIO 1.2 (0.9-1.1); Prothrombin Time 15.1 SEC (11.1-13.3)
[2023-11-24 03:02] LABS: Lactic Acid 1.7 mmol/L (0.5-2.0)
[2023-11-24 03:07] LABS: Alanine Aminotransferase 13 U/L (0-40); Albumin Level 3.4 g/dL (3.5-5.0); Alkaline Phosphatase 91 U/L (39-117); Anion Gap 11 (12-20); Aspartate Amino Transferase 26 U/L (5-37); Bilirubin Direct 0.2 mg/dL (0.0-0.5); Bilirubin Total 0.5 mg/dL (0.0-1.0); Blood Urea Nitrogen 24 mg/dL (9-16); Calcium 8.7 mg/dL (8.4-10.2); Carbon Dioxide 28 mmol/L (22-29); Chloride 115 mmol/L (96-108); Creatinine Clr Calc Pharmacy 56.1; Estimated Glomerular Filt Rate > 60; Glucose Random 97 mg/dL (60-115); Magnesium 2.5 mg/dL (1.6-2.6); Potassium 3.8 mmol/L (3.3-5.1); Sodium 150 mmol/L (135-145); Total Protein 6.5 g/dL (6.5-8.0)
[2023-11-24 03:12] LABS: Troponin-I High Sensitivity 9.7 ng/L (<3.5-35.0)
[2023-11-24 03:13] LABS: B Type Natriuretic Peptide 109 pg/mL (<100)
[2023-11-24] MEDS: iohexoL 350 MG/ML 100 ML INFUS..BTL 85 ML IV (03:22)
--- NOTE | 2023-11-24 03:25 | PC.NURSE ---
Rcvd call from Tessy, HCP/daughter, updated with current status of pt and indicated need for further workup. Tessy approved, and agreed with decision to refuse lifesaving treatments, as per previous notes.
[2023-11-24] MEDS: 0.9 % Sodium Chloride 1,000 ML 999 ML IVCONT (04:33)
--- NOTE | 2023-11-24 04:44 | PM.IMHP ---
History of Present Illness Date of Service: 11/24/23 Chief Complaint: Hypernatremia An 83 years old male with PMH of dementia , Thyroid Ca w lung Mets who presents to the hospital for behavioural changes and found to have hypernatremia. The patient is unable to provide much of history. reported to ED team that he is getting more confused and agitated as his behaviour became much more difficult to control by his and family and they were not sure about the best next step but they are not at the stage of hospice care. they feel they can not manage him at home anymore. In ED found to have Na of 150 and CXR showing evidence of pneumonia requiring O2 supplement. Will be admitted for further work up and management. Review of Systems Review of Systems: No fever, chills but has weakness No chest pain, palpitation No shortness of breath or coughing No abdominal pain, nausea or vomiting No urinary symptoms PMFSH Medical History Cholecystitis HLD (hyperlipidemia) HTN (hypertension) GERD (gastroesophageal reflux disease) Parkinsons Social History Alcohol intake: never Smoked in Last 30 Days: No Use of substances other than those prescribed or required for medical reasons: No Advance Directives: No Advance Directives Information Provided: No Do you have a plan to hurt others: No Plan Meds Allergies Allergy/AdvReac Type Severity Reaction Status Date / Time mirabegron [From Myrbetriq] Allergy Severe rash Verified 11/23/23 19:50 Opioids - Morphine Analogues Allergy Intermediate rash Verified 11/23/23 19:50 oxybutynin Allergy Intermediate rash Verified 11/23/23 19:50 Active Medications: Current Medications Sodium Chloride (Ns) 1,000 mls @ 999 mls/hr IVCONT .Q1H1M ONE Stop: 11/24/23 05:26 Last Admin: 11/24/23 04:33 Dose: 999 mls/hr Physical Exam Vital Signs and Narrative: Vital Signs: Last Vital Signs Temp 98.0 F 11/24/23 04:30 Pulse 93 11/24/23 04:30 Resp 18 11/24/23 04:30 BP 146/71 H 11/24/23 04:30 Pulse Ox 99 11/24/23 04:30 O2 Del Method Nasal Cannula 11/24/23 04:30 O2 Flow Rate 2 11/24/23 04:30 BMI result Body Mass Index 21.7 Const: Other: Constitutional : Awake, interactive, not in distress Neck : Normal inspection, Supple Cardiovascular : RRR, no JVP, no lower extremity edema Respiratory : fair bilateral air entry, basal crackles mainly in right side, no wheezes Gastrointestinal: soft, lax, Normal bowel sounds, Non tender Skin : Warm, Dry Neurological : Alert & disoriented , No focal deficit Results Labs 11/24/23 02:43 11/24/23 02:43 Labs: Laboratory Results - last 24 hr 11/23/23 11/23/23 11/24/23 20:08 20:16 00:31 MCV 86.6 MCH 28.7 MCHC 33.2 RDW 14.6 Plt Count 347 MPV 9.4 Immature Gran % (Auto) 0.3 Neut % (Auto) 79.9 H Lymph % (Auto) 9.6 L Whiteside % (Auto) 9.8 Eos % (Auto) 0.2 Baso % (Auto) 0.2 Lymph # (Auto) 0.9 L [place]ites[place] # (Auto) 0.9 Eos # (Auto) 0.0 Baso # (Auto) 0.0 Abs Immat Gran (auto) 0.03 Absolute Neuts (auto) 7.3 Absolute Nucleated RBC 0.000 Nucleated RBC % (auto) 0.0 PT INR VBG pH VBG pCO2 VBG pO2 VBG HCO3 VBG O2 Saturation VBG Base Excess Anion Gap 17 Estim Creat Clear Calc 52.2 Estimated GFR > 60 POC Glucose 130 H Random Glucose 120 H Lactic Acid Calcium 9.5 Magnesium Total Bilirubin 0.7 Direct Bilirubin AST 28 ALT 39 Alkaline Phosphatase 106 Troponin I High Sens 8.7 B-Natriuretic Peptide Total Protein 7.4 Albumin 3.8 Urine Color Yellow Urine Appearance Clear Urine pH 5.5 Ur Specific Grassflat 1.025 Urine Protein 30 (1+) H Urine Glucose (UA) Negative Urine Ketones 15 Urine Blood Negative Urine Nitrite Negative Ur Leukocyte Esterase Small (1+) H Urine RBC 0-2 Urine WBC 0-5 Ur Squamous Epith Cells 0-2 Urine Bacteria None Seen Hyaline Casts 0-2 Influenza Type A (PCR) Influenza Type B (PCR) RSV RNA Qual (PCR) SARS-CoV-2 RNA (RT-PCR) 11/24/23 11/24/23 11/24/23 00:38 02:43 02:49 MCV 88.7 MCH 28.4 MCHC 32.0 RDW 14.6 Plt Count 304 MPV 9.2 L Immature Gran % (Auto) 0.6 H Neut % (Auto) 83.1 H Lymph % (Auto) 6.5 L Whiteside % (Auto) 9.3 Eos % (Auto) 0.3 Baso % (Auto) 0.2 Lymph # (Auto) 0.6 L Whiteside # (Auto) 0.9 Eos # (Auto) 0.0 Baso # (Auto) 0.0 Abs Immat Gran (auto) 0.06 H Absolute Neuts (auto) 8.1 Absolute Nucleated RBC 0.000 Nucleated RBC % (auto) 0.0 PT 15.1 H INR 1.2 H VBG pH 7.28 L VBG pCO2 59 VBG pO2 34 VBG HCO3 28 H VBG O2 Saturation 48.0 VBG Base Excess 0.9 Anion Gap 11 L Estim Creat Clear Calc 56.1 Estimated GFR > 60 POC Glucose Random Glucose 97 Lactic Acid 1.7 Calcium 8.7 D Magnesium 2.5 Total Bilirubin 0.5 Direct Bilirubin 0.2 AST 26 ALT 13 Alkaline Phosphatase 91 Troponin I High Sens 9.7 B-Natriuretic Peptide 109 H Total Protein 6.5 Albumin 3.4 L Urine Color Urine Appearance Urine pH Ur Specific Grassflat Urine Protein Urine Glucose (UA) Urine Ketones Urine Blood Urine Nitrite Ur Leukocyte Esterase Urine RBC Urine WBC Ur Squamous Epith Cells Urine Bacteria Hyaline Casts Influenza Type A (PCR) NEGATIVE Influenza Type B (PCR) NEGATIVE RSV RNA Qual (PCR) NEGATIVE SARS-CoV-2 RNA (RT-PCR) NEGATIVE Imaging Radiologist's Impressions: Impressions Chest X-Ray 11/23/23 19:50 IMPRESSION: No interval change. No active chest disease. Electronically signed by: Aleksander Mesa MD 11/23/2023 09:14 PM EDT RP Chest X-Ray 11/24/23 02:28 IMPRESSION: Mild patchy ill-defined right midlung opacity, which could reflect developing consolidation in the proper clinical setting. Small right pleural effusion versus pleural thickening. Electronically signed by: Charlie Cassidy MD 11/24/2023 03:22 AM EDT RP Soft Tissue Neck CT 11/24/23 02:37 IMPRESSION: 1. Suboptimal assessment due to patient positioning and motion artifact. The thyroid gland is not adequately delineated in this setting, and correlation with recent or follow-up ultrasound is recommended given the clinical history. 2. Motion artifact also affects evaluation of the airway, though this appears to remain patent. 3. Partially visualized bilateral lung nodules, measuring up to 1.1 cm in the right lung. These are of uncertain chronicity in the absence of prior CT imaging for comparison and may be infectious/inflammatory or could also be seen with metastatic disease. Correlation with patient history is recommended along with short-term follow-up chest CT. 4. Small right pleural effusion. 5. Degenerative changes of the cervical spine. Electronically signed by: Charlie Cassidy MD 11/24/2023 04:14 AM EDT RP Assessment and Plan (1) Hypernatremia: Status: Acute (2) Pneumonia: Status: Acute (3) Dementia with behavioral disturbance: Status: Acute (4) Acute respiratory failure with hypoxemia: Status: Acute Plan An 83 years old male with PMH of dementia , Thyroid Ca w lung Mets who presents to the hospital for behavioural changes and found to have hypernatremia. Acute hypoxemia 2/2 Pneumonia CXR reporting infiltrates Right sided Neck CT negative for obstruction in airways but showing LN , rec f\u CT chest for more details Not Septic Start Azithromycin and Ceftriaxone Swallow screen Pending cultures Wean O2 down as tolerated Acute hypernatremia Start D5W follow BMP Dementia with behavioural changes reorientation avoid sedating medications discuss goals of care physical deconditioning PT DVT PPx Lovenox The patient will need 2 overnight hospital stay for treatment of pn eumonia and Hypernatremia with lab monitoring which can not be done in less acute setting. Quality Stroke Does the patient have a stroke diagnosis?: No VTE Prior VTE?: No VTE Risk Level:: Medical - moderate - high VTE Device Contraindication: Treatment Not Indicated VTE Drug Contraindication: N/A - Med Ordered
[2023-11-24] MEDS: Dextrose 5 % 1,000 ML 500 ML IVCONT (05:01)
--- NOTE | 2023-11-24 05:59 | PC.NURSE ---
pt noted to de sat to 89% on 3L nasal cannula, aware.
[2023-11-24] MEDS: cefTRIAXone sodium 1 GM in 0.9 % Sodium Chloride 50 ML IV (06:29)
--- NOTE | 2023-11-24 06:29 | PC.NURSE ---
pt noted to have incontinent urine, pt assisted in bed change, [place] cath placed for comfort.
[2023-11-24] MEDS: Dextrose 5 % 1,000 ML 125 ML IVCONT ×3 (06:52→22:31)
[2023-11-24] MEDS: Azithromycin 500 MG in 0.9 % Sodium Chloride 250 ML 125 MG IV (07:17)
--- NOTE | 2023-11-24 08:37 | PHA.MEDREC ---
Pharmacy Consult ? Medication Reconciliation Pharmacy has completed the medication reconciliation. Confirmed medications with discharge packet from [facility] on 11/18/23.
--- NOTE | 2023-11-24 08:39 | PHA.MEDREC ---
Addendum entered by Matilda West[facility] 11/24/23 11:13: [facility] but and HCP at bedside had list with medications and timing in chart. Confirmed list was up to date. Patient also gets a B12 shot every 3 months but unsure of last administration. Original Note: Pharmacy Consult ? Medication Reconciliation Pharmacy has completed the medication reconciliation. Confirmed medications with discharge packet from [facility] on 11/18/23. In claims I noticed he has a Metoprolol Tartrate 25mg tab 1 BID was filled 11/18/23. It was not listed on the DC packet from [facility].
[2023-11-24] MEDS: Enoxaparin Sodium 40 MG/0.4 ML SYRINGE SUBCUT (10:15)
--- NOTE | 2023-11-24 10:28 | PC.NURSE ---
pt had a firm bowel movement. There was some blood in the stool and in bed ambrocio. JOINT SETTER at bedside, aware.
--- NOTE | 2023-11-24 11:18 | PM.EVENT ---
Event Note Date of Service: 11/24/23 Event Note: 83 years old male with PMH of dementia , Thyroid Ca w lung Mets who presents to the hospital for behavioural changes and found to have hypernatremia. Acute hypoxemia secondary to Pneumonia CXR reporting infiltrates Right sided Neck CT negative for obstruction in airways but showing Lung nodule, chest ct ordered Not Septic Azithromycin and Ceftriaxone speech therapy eval Continue supplemental oxygen to keep oxygen saturation greater than 90% Acute hypernatremia 150 continue D5W follow BMP Dementia with behavioural changes reorientation avoid sedating medications discuss goals of care physical deconditioning PT DVT PPx Attending Dr. Cliff Herzog Time Spent With Patient Time: Total time managing care of this patient today ____ minutes.
--- NOTE | 2023-11-24 11:53 | PC.NURSE ---
per Speech therapy, patient to be NPO until after barium swallow
[2023-11-24 12:13] LABS: Anion Gap 11 (12-20); Blood Urea Nitrogen 14 mg/dL (9-16); Carbon Dioxide 22 mmol/L (22-29); Chloride 113 mmol/L (96-108); Creatinine Clr Calc Pharmacy 66.8; Estimated Glomerular Filt Rate > 60; Glucose Random 115 mg/dL (60-115); Potassium 3.7 mmol/L (3.3-5.1); Sodium 142 mmol/L (135-145)
--- NOTE | 2023-11-24 17:29 | MHC.SL.SWA ---
Speech Pathologist Impression: Risk of Aspiration Due to: History of Pneumonia Poor PO Intake Reduced Cognition Weak Cough Weak Voice Dysphasia Diet Status: Liquid Consistency and Strategies for Safe Swallow: Liquid Intake Recommendation: NPO Liquid Intake Strategies: Solid Food Consistency: Dietary Recommendations: NPO Additional Modifications to Solid Foods: Oral Medication Intake: NPO Please contact the pharmacy regarding appropriate crushable or liquid drug formulations that are available whenever modified delivery is recommended. Compensatory Strategies and Precautions to be Taken for Safe Swallow: Supervision While Eating and Drinking for Safe Swallow: Foods to Avoid: Swallowing Recommended Treatments: Base of Tongue Exercises Pharyngeal Resistive Exer Compens. Strategy Educat. Recommendation for Speech: Inpatient Speech Therapy Comment: Patient on MBSS study at [facility] dated 11/17/23 demonstrated moderate to severe oral pharyngeal dysphagia, with aspiration noted on serial sips of both thin and NT liquids, aspiration/deep penetration on residual of puree consistencies (residual in pharynx after swallow), some improvement when given single sips of thin liquid and more solid forms of food. Patient today was seen for limited trials of food/liquid at bedside, presented throughout with strained/stridorous breathing pattern, including during swallowing/food in mouth, placing him at increased risk for aspiration event. Patient additionally has postural/positioning issues due to fixed torsion in neck (twisted right and down). Patient noted to comment that he still felt food was in throat after swallow and express fear/rejection of taking any liquids. Recommend NPO at this time, given respiratory behavior/pattern and documented risk for aspiration. Recommend repeat assessment when/as respiratory status improves. Patient may need alternative nutrition as viability for oral diet is determined. TIRE BUILDER, RD notified of recommendation by secure text, RN in person. ELECTROTYPE SERVICER will do follow-up/reassess 11/24. Frequency/Duration: M-F while inpatient. Date Range for Service Req: Timeline to reassess: Manager Cleaning Clinican/Clinical Fellow: No Supervisory Statement: I have reviewed and agree with the student/clinical fellow's documentation: N/A Speech Language Pathologist: Joann Mcconnell M.A., CCC-ELECTROTYPE SERVICER
--- NOTE | 2023-11-24 17:50 | PM.GICN ---
History of Present Illness Data of Consult Service Date: 11/24/23 Requesting physician: Mayra Haas Primary Care Provider: Joann Piedra MD HPI Reason for consult: rectal bleeding 83 YM with dementia , Parkinson's disease, Thyroid Ca w lung Mets admitted to [facility] with behavioural changes and found to have hypernatremia. Patient is unable to provide much of history. reported to ED team that he is getting more confused, agitated and paranoid as his behaviour became much more difficult to control by his and family and they were not sure about the best next step but they are not at the stage of hospice care. they feel they can not manage him at home anymore. In ED found to have Na of 150 and CXR showing evidence of pneumonia requiring O2 supplement. GI consulted after nursing staff noted rectal bleeding. Labs showed H&H of 13.1 & 39.5 on 11/23/23. Repeat labs today showed H & H of 12.1 & 37.8 Review of Systems Review of Systems: Yes Unobtainable due to mental status PMFSH Past Medical History Medical History (Updated 12/07/23 @ 00:02 by Jocy Leal) Dementia with behavioral disturbance Cholecystitis HLD (hyperlipidemia) HTN (hypertension) GERD (gastroesophageal reflux disease) Parkinsons Social History Social History Household Members: Spouse Housing: House Do you presently have visiting nurse or other home services: No Alcohol intake: never Patient Tobacco Use Status: Never used Tobacco e-Cigarette/Vaping Use: Never Used service: Yes Meds Allergies Allergy/AdvReac Type Severity Reaction Status Date / Time mirabegron [From Myrbetriq] Allergy Severe rash Verified 11/23/23 19:50 Opioids - Morphine Analogues Allergy Intermediate rash Verified 11/23/23 19:50 oxybutynin Allergy Intermediate rash Verified 11/23/23 19:50 Active Medications: Current Medications Acetaminophen (Acetaminophen 325 Mg Tablet) 650 mg PO Q6H PRN PRN Reason: Pain, Mild (Pain Scale 1-3), fever or headache Calcium Carbonate (Calcium Carbonate 750 Mg Tab.Chew) 750 mg PO Q4H PRN PRN Reason: Heartburn Enoxaparin Sodium (Enoxaparin Sodium 40 Mg/0.4 Ml Syringe) 40 mg SUBCUT Q24H [facility] Last Admin: 11/24/23 10:15 Dose: 40 mg Azithromycin 500 mg/ Sodium (Chloride) 250 mls @ 125 mls/hr IV Q24H [facility] Ceftriaxone Sodium 1 gm/ (Sodium Chloride) 50 mls @ 100 mls/hr IV Q24H [facility] Dextrose (D5w) 1,000 mls @ 125 mls/hr IVCONT .Q8H [facility] Last Admin: 11/24/23 14:31 Dose: 125 mls/hr Magnesium Hydroxide (Milk Of Magnesia 30 Ml Oral.Susp) 30 ml PO DAILY PRN PRN Reason: Constipation Melatonin (Melatonin 3 Mg Tablet) 6 mg PO BEDTIME PRN PRN Reason: Insomnia Ondansetron HCl (Ondansetron Hcl 4 Mg/2 Ml Vial) 4 mg IVPUSH Q8H PRN PRN Reason: Nausea and Vomiting Sodium Chloride (0.9 % Sodium Chloride Flush 3 Ml Syringe) 3 ml IVFLUSH QSHIFT [facility] Last Admin: 11/24/23 07:34 Dose: Not Given Home Medications ?Medication ?Instructions ?Recorded ?Confirmed ?Last Taken ?Type aspirin 81 mg tablet,delayed 81 mg PO BEDTIME 11/24/23 11/24/23 Unknown History release calcium carbonate 500 mg PO DAILY@1200 11/24/23 11/24/23 Unknown History carbidopa 10 mg-levodopa 100 mg 1.5 tab PO QID 11/24/23 11/24/23 Unknown History disintegrating tablet finasteride 5 mg tablet 5 mg PO DAILY 11/24/23 11/24/23 Unknown History levothyroxine 75 mcg tablet 225 mcg PO MOTUWETH@0600 11/24/23 11/24/23 Unknown History magnesium glycinate 100 mg (as 100 mg PO BID@0800,1700 11/24/23 11/24/23 Unknown History glycinate) tablet melatonin 3 mg tablet 3 mg PO BEDTIME Insomnia 11/24/23 11/24/23 Unknown History metoprolol tartrate 25 mg tablet 25 mg PO BID 11/24/23 11/24/23 Unknown History omeprazole 20 mg tablet,delayed 20 mg PO BID@0630,1630 11/24/23 11/24/23 Unknown History release pramipexole 0.25 mg tablet 0.75 mg PO BEDTIME 11/24/23 11/24/23 Unknown History simvastatin 40 mg tablet 20 mg PO BEDTIME 11/24/23 11/24/23 Unknown History Physical Exam Vital Signs: Vital Signs: Last Vital Signs Temp 98.0 F 11/24/23 15:52 Pulse 67 11/24/23 15:52 Resp 12 11/24/23 15:52 BP 117/50 L 11/24/23 15:52 Pulse Ox 96 11/24/23 15:52 O2 Del Method Nasal Cannula 11/24/23 15:52 O2 Flow Rate 3 11/24/23 15:52 BMI result Body Mass Index 21.7 Const: Other: Constitutional : Awake, interactive, not in distress Neck : Normal inspection, Supple Cardiovascular : RRR, no JVP, no lower extremity edema Respiratory : fair bilateral air entry, basal crackles mainly in right side, no wheezes Gastrointestinal: soft, lax, Normal bowel sounds, Non tender Skin : Warm, Dry Neurological : Alert & disoriented , No focal deficit Results Labs 11/25/23 05:49 11/25/23 05:49 Labs: Short CBC 11/23/23 11/24/23 Range/Units 20:08 02:43 WBC 9.2 9.8 (4.8-10.8) X10*3/uL Hgb 13.1 L 12.1 L (14.0-18.0) g/dl Hct 39.5 L 37.8 L (42.0-52.0) % Plt Count 347 304 (160-400) X10*3/uL BMP 11/23/23 11/24/23 11/24/23 20:08 02:43 11:47 Sodium 150 H 150 H 142 Potassium 4.0 3.8 Chloride 112 H 115 H Carbon Dioxide 25 28 BUN 29 H 24 H Creatinine 0.87 0.81 Calcium 9.5 8.7 D 11/24/23 11:47 Sodium Cancelled Potassium 3.7 Chloride 113 H Carbon Dioxide 22 BUN 14 Creatinine 0.68 Calcium 8.0 L D Liver Function 11/23/23 11/24/23 Range/Units 20:08 02:43 Total Bilirubin 0.7 0.5 (0.0-1.0) mg/dL Direct Bilirubin 0.2 (0.0-0.5) mg/dL AST 28 26 (5-37) U/L ALT 39 13 (0-40) U/L Alkaline Phosphatase 106 91 (39-117) U/L Albumin 3.8 3.4 L (3.5-5.0) g/dL Urine 11/23/23 Range/Units 20:16 Urine Color Yellow Urine Appearance Clear Urine pH 5.5 (5.0-9.0) Ur Specific [place] 1.025 (1.005-1.025) Urine Protein 30 (1+) H (Neg-Trace) mg/dL Urine Glucose (UA) Negative (Negative) mg/dL Microbiology Microbiology Results: Microbiology 11/23/23 Unknown Urine clean catch - Clean Catch Midstream Urine Culture - Preliminary No growth to date. Assessment and Plan (1) Rectal bleeding: Status: Acute Plan 83 YM with dementia , Parkinson's disease, Thyroid Ca w lung Mets admitted to [facility] with behavioral changes and found to have hypernatremia. Patient is unable to provide much of history. reported to ED team that he is getting more confused, agitated and paranoid as his behaviour became much more difficult to control by his and family and they were not sure about the best next step but they are not at the stage of hospice care. they feel they can not manage him at home anymore. In ED found to have Na of 150 and CXR showing evidence of pneumonia requiring O2 supplement. GI consulted after nursing staff noted rectal bleeding. Labs showed H&H of 13.1 & 39.5 on 11/23/23. Repeat labs today showed H & H of 12.1 & 37.8 Rectal bleeding likely from hemorrhoids or rectal irritation from constipation. Of note pt had a negative colonoscopy at [facility] in 2003 RECOMMENDATIONS: 1. Monitor for bleeding and check CBC daily 2. Given underlying dementia and agitation, pt is not a candidate for endoscopic evaluation at present. Procedures Date of Service Date of Service: 12/13/23
--- NOTE | 2023-11-24 18:19 | MHC.SLORD ---
Speech Language Pathology Order Status: Please note: UNIX ARCHITECT recommends NPO for this patient, with full assessment entered in Patient Care. Please see detail in this assessment re MBSS study of 11/17/23 completed at [facility]. UNIX ARCHITECT to re-assess swallow 11/25/23. IMAGING TECHNOLOGIST has been contacted X2 by Jean jordan with recommendation of NPO.
[2023-11-25] VITALS (9 sets, daily range): BP systolic 132–186; BP diastolic 63–83; PULSE 67–140; RESP 18–20; TEMP 35.9–36.4; O2SAT 79–100
[2023-11-25 06:17] LABS: Hematocrit 36.3 % (42.0-52.0); Hemoglobin 11.8 g/dl (14.0-18.0); Mean Corpuscular HGB Conc 32.5 g/dl (31.0-36.0); Mean Corpuscular Hemoglobin 28.7 pg (27.0-33.0); Mean Corpuscular Volume 88.3 fL (80.0-98.0); Mean Platelet Volume 9.5 fL (9.4-12.4); Platelet Count 301 X10*3/uL (160-400); Red Blood Count 4.11 X10*6/uL (4.60-5.80); White Blood Count 8.1 X10*3/uL (4.8-10.8)
[2023-11-25 06:27] LABS: Anion Gap 9 (12-20); Blood Urea Nitrogen 6 mg/dL (9-16); Calcium 8.2 mg/dL (8.4-10.2); Carbon Dioxide 27 mmol/L (22-29); Chloride 108 mmol/L (96-108); Creatinine Clr Calc Pharmacy 65.8; Estimated Glomerular Filt Rate > 60; Glucose Random 130 mg/dL (60-115); Potassium 3.3 mmol/L (3.3-5.1); Sodium 141 mmol/L (135-145)
[2023-11-25] MEDS: Dextrose 5 % 1,000 ML 125 ML IVCONT (06:31)
[2023-11-25] MEDS: cefTRIAXone sodium 1 GM in 0.9 % Sodium Chloride 50 ML IV (06:53)
[2023-11-25] MEDS: 0.9 % Sodium Chloride Flush 3 ML SYRINGE IVFLUSH (08:24)
[2023-11-25] MEDS: Azithromycin 500 MG in 0.9 % Sodium Chloride 250 ML 125 MG IV (08:25)
[2023-11-25] MEDS: Enoxaparin Sodium 40 MG/0.4 ML SYRINGE SUBCUT (08:26)
[2023-11-25] MEDS: Finasteride 5 MG TABLET PO (08:52)
[2023-11-25] MEDS: Metoprolol Tartrate 25 MG TABLET PO (08:52)
--- NOTE | 2023-11-25 10:54 | HO.PM.IMPN ---
Subjective Subjective Date of Service: 11/25/23 Interval History: seen and examined this AM feels better, asking when he can go home Review of Systems Negative except HPI/interval history. Physical Exam Vital Signs: Vital Signs: Last Vital Signs Temp 97.4 F 11/25/23 08:00 Pulse 140 H 11/25/23 08:52 Resp 20 11/25/23 08:00 BP 186/70 H 11/25/23 08:52 Pulse Ox 79 L 11/25/23 08:00 O2 Del Method Nasal Cannula 11/25/23 08:00 O2 Flow Rate 3 11/25/23 08:00 BMI result Body Mass Index 21.7 General - no acute distress, appears comfortable Cardiovascular - regular rate and rhythm, S1-S2 Lungs - coarse sounds Abdomen - soft, nontender, no rebound or guarding Extremities - no edema bilaterally Neuro - awake and alert, no focal deficits Objective Data Active Medications Acetaminophen (Acetaminophen 325 Mg Tablet) 650 mg PO Q6H PRN PRN Reason: Pain, Mild (Pain Scale 1-3), fever or headache Atorvastatin Calcium (Atorvastatin Calcium 20 Mg Tablet) 20 mg PO BEDTIME [facility] Calcium Carbonate (Calcium Carbonate 750 Mg Tab.Chew) 750 mg PO Q4H PRN PRN Reason: Heartburn Carbidopa/Levodopa (Carbidopa/Levodopa 10/100 Tablet) 1.5 tab PO QID [facility] Enoxaparin Sodium (Enoxaparin Sodium 40 Mg/0.4 Ml Syringe) 40 mg SUBCUT Q24H [facility] Last Admin: 11/25/23 08:26 Dose: 40 mg Documented By: MARTINEZ Finasteride (Finasteride 5 Mg Tablet) 5 mg PO DAILY [facility] Last Admin: 11/25/23 08:52 Dose: 5 mg Documented By: MARTINEZ Azithromycin 500 mg/ Sodium (Chloride) 250 mls @ 125 mls/hr IV Q24H [facility] Last Infusion: 11/25/23 10:51 Dose: Infused Documented By: RUCHI Ceftriaxone Sodium 1 gm/ (Sodium Chloride) 50 mls @ 100 mls/hr IV Q24H [facility] Last Infusion: 11/25/23 07:36 Dose: Infused Documented By: RUCHI Dextrose (D5w) 1,000 mls @ 125 mls/hr IVCONT .Q8H [facility] Last Infusion: 11/25/23 08:46 Dose: Infused Documented By: MARTINEZ Levothyroxine Sodium (Levothyroxine Sodium 75 Mcg Tablet) 225 mcg PO MOTUWETH@0600 [facility] Magnesium Hydroxide (Milk Of Magnesia 30 Ml Oral.Susp) 30 ml PO DAILY PRN PRN Reason: Constipation Melatonin (Melatonin 3 Mg Tablet) 6 mg PO BEDTIME PRN PRN Reason: Insomnia Melatonin (Melatonin 3 Mg Tablet) 3 mg PO BEDTIME [facility] Metoprolol Tartrate (Metoprolol Tartrate 25 Mg Tablet) 25 mg PO BID [facility]; Protocol Last Admin: 11/25/23 08:52 Dose: 25 mg Documented By: MARTINEZ Non-Formulary Medication (Magnesium Glycinate) 100 mg PO BID@0800,1700 [facility] Omeprazole (Omeprazole 20 Mg Capsule.Dr) 20 mg PO BID@0630,1630 [facility] Ondansetron HCl (Ondansetron Hcl 4 Mg/2 Ml Vial) 4 mg IVPUSH Q8H PRN PRN Reason: Nausea and Vomiting Pramipexole Dihydrochloride (Pramipexole Di-Hcl 0.25 Mg Tablet) 0.75 mg PO BEDTIME [facility] Sodium Chloride (0.9 % Sodium Chloride Flush 3 Ml Syringe) 3 ml IVFLUSH QSHIFT [facility] Last Admin: 11/25/23 08:24 Dose: 3 ml Documented By: MARTINEZ Labs 11/25/23 05:49 11/25/23 05:49 Labs: Laboratory Results - last 24 hr 11/24/23 11/25/23 11:47 05:49 MCV 88.3 MCH 28.7 MCHC 32.5 RDW 14.0 Plt Count 301 MPV 9.5 Absolute Nucleated RBC 0.000 Nucleated RBC % (auto) 0.0 Anion Gap 11 L 9 L Estim Creat Clear Calc 66.8 65.8 Estimated GFR > 60 > 60 Random Glucose 115 130 H Calcium 8.0 L D 8.2 L Microbiology Microbiology Results: Microbiology 11/23/23 Unknown Urine Culture - Final Urine clean catch - Clean Catch Midstream No growth. 11/24/23 02:59 Blood Culture - Preliminary Blood - Venous No growth after 24 hours. 11/24/23 02:43 Blood Culture - Preliminary Blood - Venous No growth after 24 hours. Assessment and Plan (1) Acute respiratory failure with hypoxemia: Status: Acute Plan An 83 years old male with PMH of dementia , Thyroid Ca w lung Mets who presents to the hospital for behavioural changes and found to have hypernatremia. Acute hypoxemia 2/2 Pneumonia CXR reporting infiltrates Right sided Neck CT negative for obstruction in airways but showing LN, CT chest pain -- pending read Not Septic zithromax/rocephin day #2 Swallow screen - NPO per speech eval, they will follow up today Pending cultures Wean O2 down as tolerated Acute hypernatremia resolved, due to poor oral intake Parkinsons disease Dementia with behavioural changes reorientation avoid sedating medications restart home parkinson meds physical deconditioning PT hematochezia during BM no further episodes reported h/h stable -- continue to monitor DVT PPx - mechanical due to hematochezia reason for continued hospitalization: dysphgia and respiratory failure + pneumonia requiring IV abx/oxygenb Quality Stroke Does the patient have a stroke diagnosis?: No VTE Prior VTE?: No VTE Risk Level:: Medical - moderate - high VTE Device Contraindication: Treatment Not Indicated VTE Drug Contraindication: N/A - Med Ordered
[2023-11-25] MEDS: Dextrose 5 % and 0.45 % NaCl 1,000 ML 80 ML IVCONT ×2 (11:30→23:49)
--- NOTE | 2023-11-25 13:42 | MHC.SL.SWA ---
Addendum entered by Sofia Bai 11/25/23 15:10: NEPHROLOGY SOCIAL WORKER met with pt, family and HCP today to discuss results of recent MBSS on 11/17/23 and current recommendations for NPO strict. Hospitalist present as well. Family and HCP considering options for nutrition, artificial vs continued PO in presence of severe dysphagia. Parkinson's progression considered to further compromise pt ability to tolerate PO and consideration for hospice discussed. Pt to remain NPO pending further decision, NEPHROLOGY SOCIAL WORKER intervention to continue as indicated. Original Note: Speech Pathologist Impression: Severe pharyngeal dysphagia Risk of Aspiration Due to: History of Pneumonia Poor PO Intake Reduced Cognition Weak Cough Weak Voice Dysphasia Diet Status: Downgrade to NPO strict Liquid Consistency and Strategies for Safe Swallow: Liquid Intake Recommendation: NPO Liquid Intake Strategies: Solid Food Consistency: Dietary Recommendations: NPO Additional Modifications to Solid Foods: Oral Medication Intake: NPO Please contact the pharmacy regarding appropriate crushable or liquid drug formulations that are available whenever modified delivery is recommended. Compensatory Strategies and Precautions to be Taken for Safe Swallow: Supervision While Eating and Drinking for Safe Swallow: Foods to Avoid: Swallowing Recommended Treatments: Compens. Strategy Educat. Recommendation for Speech: Inpatient Speech Therapy Comment: Patient on MBSS study at [facility] [place] dated 11/17/23 demonstrated moderate to severe oral pharyngeal dysphagia, with aspiration noted on serial sips of both thin and NT liquids, aspiration/deep penetration on residual of puree consistencies (residual in pharynx after swallow), some improvement when given single sips of thin liquid and more solid forms of food. Patient today was seen for limited trials of food/liquid at bedside, presented throughout with strained/stridorous breathing pattern, including during swallowing/food in mouth, placing him at increased risk for aspiration event. Patient additionally has postural/positioning issues due to fixed torsion in neck (twisted right and down). Patient noted to comment that he still felt food was in throat after swallow and express fear/rejection of taking any liquids. Recommend NPO at this time, given respiratory behavior/pattern and documented risk for aspiration. Recommend repeat assessment when/as respiratory status improves. Patient may need alternative nutrition as viability for oral diet is determined. DIESEL RETROFIT DESIGNER, RD notified of recommendation by secure text, RN in person. NEPHROLOGY SOCIAL WORKER follow-up 11/24 to discuss recommendations with pt, family and HCP. Frequency/Duration: M-F while inpatient. Date Range for Service Req: Timeline to reassess: Hand Mixer Clinican/Clinical Fellow: No Supervisory Statement: I have reviewed and agree with the student/clinical fellow's documentation: N/A Speech Language Pathologist: Sofia Bai M.A. [facility]-NEPHROLOGY SOCIAL WORKER
--- NOTE | 2023-11-25 14:25 | MHC.CM.PN ---
IMM 11/25/23, EMR REVIEWED, PT W/ARF/PNA/HYPERNATREMIA WELL PARKINSONS/DEMENTIA, CA W/METS, PT HAS BEGUN WANDERING AT NIGHT, PT DOES HAVE GPS ANKLE BRACELET, PT'S DTR/HCP TREVON REPORTS PT'S DOES NOT WAKE UP TO ALARM, SO POLICE ARE THE ONES WHO CAME, CM MET W/PT'S /DTR AND TWO OTHER CHILDREN AT BEDSIDE. FAMILY IS ASKING FOR OPTIONS, AND CM WENT OVER HOME W/PRIVATE DUTY CAREGIVERS FOR OVERNIGHT AND FAMILY PROVIDED W/LIST OF HOME HEALTH AGENCIES WELL WELL TASK TO [facility], FAMILY AWARE THEY COULD APPLY FOR SERVICES [facility]OUGH [facility] HOWEVER UNSURE IF THEY WOULD DO NIGHTS AND IT TAKES APPROX 6 MOS FOR PROCESS. THE OTHER OPTION BEING POSSIBLE STR/[facility]TC AND FAMILY AWARE PT IS NOT SERVICE CONNECTED AND WOULD TO PRIVATE PAY OR HAVE MH, PT DOES NOT HAVE MH. PER PREVIOUS CM FAMILY IS NOT READY FOR HOSPICE HOWEVER CM DID LET THEM KNOW WHEN THEY ARE [facility] W[facility] ROOM [facility] BOARD AND PT'S MEDICARE WOULD COVER HOSPICE. PT'S YESENIA WOULD LIKE PT TO RETURN HOME HOWEVER PT'S CHILDREN ARE CONCERNED HE WILL CONT TO WANDER AT NIGHT. PT/FAMILY WOULD LIKE FEEDING TUBE PLACED HOWEVER WILL NOT LIKELY HAPPEN UNTIL TUESDAY.
--- NOTE | 2023-11-25 15:09 | P.ACPN_ITS ---
Advanced Care Planning Note Advanced Care Planning Note Discussed with: patient and family member(s) (, Daughter, Son, Tomy [id number], Son (on phone)) Time spent (in minutes): 30 Narrative: Asked by CM to meet with patients family to discuss findings of CT scan and overall care. Met with the patient's family bedside. Patient asleep and appearing comfortable. We discussed the findings of the CT scan done yesterday of the chest which report multiple pulmonary nodules (see full report) concerning for metastatic disease with lymphangitic spread. The patient's family reports that they are aware of his thyroid cancer spreading. (his last CT scan they report was in June of this year) We next discussed the patient's ongoing dysphagia and silent aspirations. We talked about treatment options including parenteral nutrition as well as feeding tube insertions. I informed him that it was my opinion that a feeding tube would not fully prevent his pulmonary aspiration. The family informed me of the patient's decline over the last several weeks which included multiple trips to the emergency room as well as an admission to [facility]. They also informed me of the patient's nighttime situation at home over the last several weeks. We talked about goals of care including palliative/hospice which they informed me they are aware of. During the past recent discussions, it appears that the patient and family declined hospice as they were not ready. Ultimately, we will continue the current care as is for the time being. They will consider the details of our discussion and get back to us on how they would like to proceed. 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
--- NOTE | 2023-11-25 15:30 | MHC.CM.PN ---
CM MET W/PT AND FAMILY AT BEDSIDE PER THEIR REQUEST AND FAMILY REPORTS THEY SPOKE W/HOSPITALIST AND HAVE DECIDED AGAINST A FEEDING TUBE PT CAN STILL ASPIRATE, FAMILY WOULD LIKE PT TO DC HOME ON HOSPICE ONCE STABILIZED, PT'S YESENIA WOULD LIKE REF SENT TO [facility], FAMILY UNABLE TO LOCATE COPY OF HCP, DINAH HAS GIVE TREVON A CM BUSINESS CARD AND WILL CALL THEIR PROTEIN PURIFICATION SCIENTIST TO EMAIL IT TO CM.
[2023-11-25] MEDS: Fluticasone Propionate Nasal 16 GM SPRAY 1 SPRAY NOSTRIL-B (17:46)
[2023-11-26] MEDS: 0.9 % Sodium Chloride Flush 3 ML SYRINGE IVFLUSH ×3 (00:50→14:42)
[2023-11-26 04:00] VITALS: BP 120/76; PULSE 80; RESP 18; TEMP 36.4; O2SAT 95
[2023-11-26] MEDS: cefTRIAXone sodium 1 GM in 0.9 % Sodium Chloride 50 ML IV (06:08)
[2023-11-26 07:40] VITALS: BP 124/91; PULSE 86; RESP 20; TEMP 36.2; O2SAT 96
[2023-11-26] MEDS: Azithromycin 500 MG in 0.9 % Sodium Chloride 250 ML 125 MG IV (09:15)
[2023-11-26] MEDS: LORazepam 2 MG/ML VIAL 0.5 MG IVPUSH (09:55)
[2023-11-26 12:00] VITALS: BP 152/70; PULSE 65; RESP 20; TEMP 36.4; O2SAT 97
--- NOTE | 2023-11-26 12:42 | HO.PM.IMPN ---
Subjective Subjective Date of Service: 11/26/23 Interval History: seen and examined this AM feels better, asking when he can go home Review of Systems Negative except HPI/interval history. Physical Exam Vital Signs: Vital Signs: Last Vital Signs Temp 97.6 F 11/26/23 12:00 Pulse 65 11/26/23 12:00 Resp 20 11/26/23 12:00 BP 152/70 H 11/26/23 12:00 Pulse Ox 97 11/26/23 12:00 O2 Del Method Room Air 11/26/23 12:00 O2 Flow Rate 2 11/26/23 07:40 BMI result Body Mass Index 21.7 Objective Data Active Medications Acetaminophen (Acetaminophen 325 Mg Tablet) 650 mg PO Q6H PRN PRN Reason: Pain, Mild (Pain Scale 1-3), fever or headache Atorvastatin Calcium (Atorvastatin Calcium 20 Mg Tablet) 20 mg PO BEDTIME [facility] Last Admin: 11/25/23 21:00 Dose: Not Given Documented By: RACHEL Non-Admin Reason: NPO Calcium Carbonate (Calcium Carbonate 750 Mg Tab.Chew) 750 mg PO Q4H PRN PRN Reason: Heartburn Carbidopa/Levodopa (Carbidopa/Levodopa 10/100 Tablet) 1.5 tab PO QID [facility] Last Admin: 11/26/23 11:45 Dose: Not Given Documented By: ISAAC Non-Admin Reason: NPO, unable to safely take, aspiration precau Enoxaparin Sodium (Enoxaparin Sodium 40 Mg/0.4 Ml Syringe) 40 mg SUBCUT Q24H [facility] Last Admin: 11/25/23 08:26 Dose: 40 mg Documented By: MARTINEZ Finasteride (Finasteride 5 Mg Tablet) 5 mg PO DAILY [facility] Last Admin: 11/26/23 09:07 Dose: Not Given Documented By: ISAAC Non-Admin Reason: NPO/ aspiration precautions Fluticasone Propionate (Fluticasone Propionate Nasal 16 Gm [place]) 1 spray NOSTRIL-B DAILY PRN PRN Reason: Nasal Congestion Last Admin: 11/25/23 17:46 Dose: 1 spray Documented By: RUCHI Azithromycin 500 mg/ Sodium (Chloride) 250 mls @ 125 mls/hr IV Q24H [facility] Last Infusion: 11/26/23 11:15 Dose: Infused Documented By: ISAAC Ceftriaxone Sodium 1 gm/ (Sodium Chloride) 50 mls @ 100 mls/hr IV Q24H [facility] Last Infusion: 11/26/23 06:40 Dose: Infused Documented By: FREIDA Dextrose/Sodium Chloride (D51/2ns) 1,000 mls @ 80 mls/hr IVCONT .[id number] [facility] Last Admin: 11/25/23 23:49 Dose: 80 mls/hr Documented By: RACHEL Levothyroxine Sodium (Levothyroxine Sodium 75 Mcg Tablet) 225 mcg PO MOTUWETH@0600 [facility] Magnesium Hydroxide (Milk Of Magnesia 30 Ml Oral.Susp) 30 ml PO DAILY PRN PRN Reason: Constipation Melatonin (Melatonin 3 Mg Tablet) 6 mg PO BEDTIME PRN PRN Reason: Insomnia Melatonin (Melatonin 3 Mg Tablet) 3 mg PO BEDTIME [facility] Last Admin: 11/25/23 20:43 Dose: Not Given Documented By: RACHEL Non-Admin Reason: NPO Metoprolol Tartrate (Metoprolol Tartrate 25 Mg Tablet) 25 mg PO BID [facility]; Protocol Last Admin: 11/26/23 09:07 Dose: Not Given Documented By: ISAAC Non-Admin Reason: NPO/ aspiration precautions Omeprazole (Omeprazole 20 Mg Capsule.Dr) 20 mg PO BID@0630,1630 [facility] Last Admin: 11/26/23 06:02 Dose: Not Given Documented By: RACHEL Non-Admin Reason: NPO Ondansetron HCl (Ondansetron Hcl 4 Mg/2 Ml Vial) 4 mg IVPUSH Q8H PRN PRN Reason: Nausea and Vomiting Pramipexole Dihydrochloride (Pramipexole Di-Hcl 0.25 Mg Tablet) 0.75 mg PO BEDTIME [facility] Last Admin: 11/25/23 21:00 Dose: Not Given Documented By: RACHEL Non-Admin Reason: NPO Sodium Chloride (0.9 % Sodium Chloride Flush 3 Ml Syringe) 3 ml IVFLUSH QSHIFT [facility] Last Admin: 11/26/23 09:15 Dose: 3 ml Documented By: ISAAC Labs 11/25/23 05:49 11/25/23 05:49 Microbiology Microbiology Results: Microbiology 11/24/23 02:59 Blood Culture - Preliminary Blood - Venous No growth after 48 hours. 11/24/23 02:43 Blood Culture - Preliminary Blood - Venous No growth after 48 hours. 11/23/23 Unknown Urine Culture - Final Urine clean catch - Clean Catch Midstream No growth. Assessment and Plan (1) Acute respiratory failure with hypoxemia: Status: Acute Plan An 83 years old male with PMH of dementia , Thyroid Ca w lung Mets who presents to the hospital for behavioural changes and found to have hypernatremia. Acute hypoxemia 2/2 Pneumonia CXR reporting infiltrates Right sided Neck CT negative for obstruction in airways but showing LN, CT chest pain -- pending read Not Septic zithromax/rocephin Swallow screen - NPO per speech eval neg cultures Wean O2 down as tolerated Acute hypernatremia resolved, due to poor oral intake Parkinsons disease Dementia with behavioural changes reorientation avoid sedating medications restart home parkinson meds physical deconditioning PT hematochezia during BM no further episodes reported h/h stable -- continue to monitor DVT PPx - mechanical due to hematochezia Attending Dr. Coronado reason for continued hospitalization: dysphgia and respiratory failure + pneumonia requiring IV abx/oxygenb Quality Stroke Does the patient have a stroke diagnosis?: No VTE Prior VTE?: No VTE Risk Level:: Medical - moderate - high VTE Device Contraindication: Treatment Not Indicated VTE Drug Contraindication: N/A - Med Ordered
[2023-11-26] MEDS: Dextrose 5 % and 0.45 % NaCl 1,000 ML 80 ML IVCONT (14:42)
[2023-11-26 15:52] VITALS: BP 147/58; PULSE 54; RESP 18; TEMP 36.7; O2SAT 100
[2023-11-26 19:33] VITALS: BP 155/69; PULSE 62; RESP 15; TEMP 36.4; O2SAT 99
[2023-11-26 23:10] VITALS: BP 148/76; PULSE 70; RESP 18; TEMP 36.6; O2SAT 96
[2023-11-27] MEDS: Dextrose 5 % and 0.45 % NaCl 1,000 ML 80 ML IVCONT ×2 (03:28→20:30)
[2023-11-27 03:40] VITALS: BP 136/90; PULSE 78; RESP 20; TEMP 36; O2SAT 98
[2023-11-27] MEDS: cefTRIAXone sodium 1 GM in 0.9 % Sodium Chloride 50 ML IV (06:02)
[2023-11-27 07:34] VITALS: BP 174/64; PULSE 69; RESP 18; TEMP 36.5; O2SAT 98
[2023-11-27] MEDS: Azithromycin 500 MG in 0.9 % Sodium Chloride 250 ML 125 MG IV (09:20)
[2023-11-27] MEDS: 0.9 % Sodium Chloride Flush 3 ML SYRINGE IVFLUSH (09:20)
--- NOTE | 2023-11-27 09:53 | HO.PM.IMPN ---
Subjective Subjective Date of Service: 11/27/23 Interval History: seen and examined this AM feels better, asking when he can go home Review of Systems Negative except HPI/interval history. Physical Exam Vital Signs: Vital Signs: Last Vital Signs Temp 97.7 F 11/27/23 07:34 Pulse 69 11/27/23 07:34 Resp 18 11/27/23 07:34 BP 174/64 H 11/27/23 07:34 Pulse Ox 98 11/27/23 07:34 O2 Del Method Nasal Cannula 11/27/23 07:34 O2 Flow Rate 3 11/27/23 07:34 BMI result Body Mass Index 21.7 Appearing in no acute distress lung sounds are clear to auscultation heart regular rate rhythm, clear S1, S2 positive bowel sounds, abdomen is soft, nontender neuro patient is alert, comfused Objective Data Active Medications Acetaminophen (Acetaminophen 325 Mg Tablet) 650 mg PO Q6H PRN PRN Reason: Pain, Mild (Pain Scale 1-3), fever or headache Atorvastatin Calcium (Atorvastatin Calcium 20 Mg Tablet) 20 mg PO BEDTIME [facility] Last Admin: 11/26/23 20:35 Dose: Not Given Documented By: KENTRELL Non-Admin Reason: NPO Calcium Carbonate (Calcium Carbonate 750 Mg Tab.Chew) 750 mg PO Q4H PRN PRN Reason: Heartburn Carbidopa/Levodopa (Carbidopa/Levodopa 10/100 Tablet) 1.5 tab PO QID [facility] Last Admin: 11/27/23 09:21 Dose: Not Given Documented By: ISAAC Non-Admin Reason: NPO, strict aspiration precautions Enoxaparin Sodium (Enoxaparin Sodium 40 Mg/0.4 Ml Syringe) 40 mg SUBCUT Q24H [facility] Last Admin: 11/25/23 08:26 Dose: 40 mg Documented By: MARTINEZ Finasteride (Finasteride 5 Mg Tablet) 5 mg PO DAILY [facility] Last Admin: 11/27/23 09:21 Dose: Not Given Documented By: ISAAC Non-Admin Reason: NPO, strict aspiration precautions Fluticasone Propionate (Fluticasone Propionate Nasal 16 Gm [place]) 1 spray NOSTRIL-B DAILY PRN PRN Reason: Nasal Congestion Last Admin: 11/25/23 17:46 Dose: 1 spray Documented By: HO.KINGKAI Azithromycin 500 mg/ Sodium (Chloride) 250 mls @ 125 mls/hr IV Q24H [facility] Last Admin: 11/27/23 09:20 Dose: 125 mls/hr Documented By: ISAAC Ceftriaxone Sodium 1 gm/ (Sodium Chloride) 50 mls @ 100 mls/hr IV Q24H [facility] Last Infusion: 11/27/23 06:42 Dose: Infused Documented By: KENTRELL Dextrose/Sodium Chloride (D51/2ns) 1,000 mls @ 80 mls/hr IVCONT .[id number] [facility] Last Admin: 11/27/23 03:28 Dose: 80 mls/hr Documented By: KENTRELL Levothyroxine Sodium (Levothyroxine Sodium 75 Mcg Tablet) 225 mcg PO MOTUWETH@0600 [facility] Magnesium Hydroxide (Milk Of Magnesia 30 Ml Oral.Susp) 30 ml PO DAILY PRN PRN Reason: Constipation Melatonin (Melatonin 3 Mg Tablet) 6 mg PO BEDTIME PRN PRN Reason: Insomnia Melatonin (Melatonin 3 Mg Tablet) 3 mg PO BEDTIME [facility] Last Admin: 11/26/23 20:36 Dose: Not Given Documented By: KENTRELL Non-Admin Reason: NPO Metoprolol Tartrate (Metoprolol Tartrate 25 Mg Tablet) 25 mg PO BID [facility]; Protocol Last Admin: 11/27/23 09:21 Dose: Not Given Documented By: ISAAC Non-Admin Reason: NPO, strict aspiration precautions Omeprazole (Omeprazole 20 Mg Capsule.Dr) 20 mg PO BID@0630,1630 [facility] Last Admin: 11/27/23 03:39 Dose: Not Given Documented By: KENTRELL Non-Admin Reason: NPO Ondansetron HCl (Ondansetron Hcl 4 Mg/2 Ml Vial) 4 mg IVPUSH Q8H PRN PRN Reason: Nausea and Vomiting Pramipexole Dihydrochloride (Pramipexole Di-Hcl 0.25 Mg Tablet) 0.75 mg PO BEDTIME [facility] Last Admin: 11/26/23 20:36 Dose: Not Given Documented By: KENTRELL Non-Admin Reason: NPO Sodium Chloride (0.9 % Sodium Chloride Flush 3 Ml Syringe) 3 ml IVFLUSH QSHIFT [facility] Last Admin: 11/27/23 09:20 Dose: 3 ml Documented By: ISAAC Labs 11/25/23 05:49 11/25/23 05:49 Assessment and Plan (1) Acute respiratory failure with hypoxemia: Status: Acute Plan An 83 years old male with PMH of dementia , Thyroid Ca w lung Mets who presents to the hospital for behavioural changes and found to have hypernatremia. Acute hypoxemia 2/2 Pneumonia CXR reporting infiltrates Right sided Neck CT negative for obstruction in airways but showing LN, CT chest pain Not Septic zithromax/rocephin Swallow screen - NPO per speech eval neg cultures Wean O2 down as tolerated Acute hypernatremia resolved, due to poor oral intake Parkinsons disease Dementia with behavioural changes reorientation avoid sedating medications restart home parkinson meds physical deconditioning PT hematochezia during BM no further episodes reported h/h stable -- continue to monitor DVT PPx - mechanical due to hematochezia Attending Dr. Moffett DISPO plan for likely dc home with Hospice reason for continued hospitalization: dysphgia and respiratory failure + pneumonia requiring IV abx/oxygenb Quality Stroke Does the patient have a stroke diagnosis?: No VTE Prior VTE?: No VTE Risk Level:: Medical - moderate - high VTE Device Contraindication: Treatment Not Indicated VTE Drug Contraindication: N/A - Med Ordered
[2023-11-27 11:08] VITALS: BP 178/97; PULSE 52; RESP 18; TEMP 36.6; O2SAT 98
[2023-11-27 15:38] VITALS: BP 152/69; PULSE 50; RESP 20; TEMP 37.1; O2SAT 92
[2023-11-27 19:40] VITALS: BP 143/75; PULSE 87; RESP 18; TEMP 36.1; O2SAT 100
[2023-11-27 20:15] VITALS: BP 143/75; PULSE 87
[2023-11-27] MEDS: Metoprolol Tartrate 25 MG TABLET PO (20:15)
[2023-11-27] MEDS: Pramipexole Di-HCL 0.25 MG TABLET 0.75 MG PO (20:19)
[2023-11-27] MEDS: Melatonin 3 MG TABLET PO (20:20)
[2023-11-27] MEDS: Atorvastatin Calcium 20 MG TABLET PO (20:20)
[2023-11-28] VITALS (10 sets, daily range): BP systolic 119–186; BP diastolic 67–89; PULSE 67–79; RESP 16–20; TEMP 36–37; O2SAT 95–100
[2023-11-28] MEDS: 0.9 % Sodium Chloride Flush 3 ML SYRINGE IVFLUSH ×3 (00:03→23:23)
[2023-11-28] MEDS: Melatonin 3 MG TABLET 6 MG PO (02:17)
[2023-11-28] MEDS: LORazepam 0.5 MG TABLET PO (03:50)
[2023-11-28] MEDS: Levothyroxine Sodium 75 MCG TABLET 225 MCG PO (05:44)
[2023-11-28] MEDS: Omeprazole 20 MG CAPSULE.DR PO (05:44)
[2023-11-28] MEDS: traZODone HCL 50 MG TABLET PO (05:44)
[2023-11-28] MEDS: cefTRIAXone sodium 1 GM in 0.9 % Sodium Chloride 50 ML IV (06:23)
[2023-11-28] MEDS: Azithromycin 500 MG in 0.9 % Sodium Chloride 250 ML 125 MG IV (08:23)
[2023-11-28] MEDS: Dextrose 5 % and 0.45 % NaCl 1,000 ML 80 ML IVCONT ×2 (08:26→23:26)
--- NOTE | 2023-11-28 09:52 | MHC.CM.PN ---
CM ATTEMPTED TO CONTACT PT'S DTR/HCP [facility] AT 9:50AM #ON FILE, NO ANSWER AND DETAILED MESSAGE LEFT. CM ALSO RECEIVED MESSAGE FROM [facility] AND WILL PLAN TO SET UP DC TOMORROW BEFORE NOON FOR HOSPICE SOC, CM TO REATTEMPT TO CONTACT [facility] AFTER MULTIDISCIPLINARY ROUNDS.
--- NOTE | 2023-11-28 10:30 | HO.PM.IMPN ---
Subjective Subjective Date of Service: 11/28/23 Interval History: seen and examined this AM feels better, asking when he can go home Review of Systems Negative except HPI/interval history. Physical Exam Vital Signs: Vital Signs: Last Vital Signs Temp 96.8 F 11/28/23 07:43 Pulse 79 11/28/23 07:43 Resp 18 11/28/23 07:43 BP 154/89 H 11/28/23 07:43 Pulse Ox 100 11/28/23 08:30 O2 Del Method Nasal Cannula 11/28/23 08:30 O2 Flow Rate 2 11/28/23 08:30 BMI result Body Mass Index 21.7 Appearing in no acute distress lung sounds are clear to auscultation heart regular rate rhythm, clear S1, S2 positive bowel sounds, abdomen is soft, nontender neuro patient is alert x3, no focal deficits Objective Data Active Medications Acetaminophen (Acetaminophen 325 Mg Tablet) 650 mg PO Q6H PRN PRN Reason: Pain, Mild (Pain Scale 1-3), fever or headache Atorvastatin Calcium (Atorvastatin Calcium 20 Mg Tablet) 20 mg PO BEDTIME [facility] Last Admin: 11/27/23 20:20 Dose: 20 mg Documented By: ROBBIN Calcium Carbonate (Calcium Carbonate 750 Mg Tab.Chew) 750 mg PO Q4H PRN PRN Reason: Heartburn Carbidopa/Levodopa (Carbidopa/Levodopa 10/100 Tablet) 1.5 tab PO QID [facility] Last Admin: 11/28/23 08:24 Dose: Not Given Documented By: ISAAC Non-Admin Reason: Strict NPO, aspiration precautions Enoxaparin Sodium (Enoxaparin Sodium 40 Mg/0.4 Ml Syringe) 40 mg SUBCUT Q24H [facility] Last Admin: 11/25/23 08:26 Dose: 40 mg Documented By: MARTINEZ Finasteride (Finasteride 5 Mg Tablet) 5 mg PO DAILY [facility] Last Admin: 11/28/23 08:24 Dose: Not Given Documented By: ISAAC Non-Admin Reason: Strict NPO, aspiration precautions Fluticasone Propionate (Fluticasone Propionate Nasal 16 Gm [place]) 1 spray NOSTRIL-B DAILY PRN PRN Reason: Nasal Congestion Last Admin: 11/25/23 17:46 Dose: 1 spray Documented By: RUCHI Azithromycin 500 mg/ Sodium (Chloride) 250 mls @ 125 mls/hr IV Q24H [facility] Last Admin: 11/28/23 08:23 Dose: 125 mls/hr Documented By: ISAAC Ceftriaxone Sodium 1 gm/ (Sodium Chloride) 50 mls @ 100 mls/hr IV Q24H [facility] Last Infusion: 11/28/23 06:53 Dose: Infused Documented By: ISAAC Dextrose/Sodium Chloride (D51/2ns) 1,000 mls @ 80 mls/hr IVCONT .[id number] [facility] Last Admin: 11/28/23 08:26 Dose: 80 mls/hr Documented By: ISAAC Levothyroxine Sodium (Levothyroxine Sodium 75 Mcg Tablet) 225 mcg PO MOTUWETH@0600 [facility] Last Admin: 11/28/23 05:44 Dose: 225 mcg Documented By: ROBBIN Magnesium Hydroxide (Milk Of Magnesia 30 Ml Oral.Susp) 30 ml PO DAILY PRN PRN Reason: Constipation Melatonin (Melatonin 3 Mg Tablet) 6 mg PO BEDTIME PRN PRN Reason: Insomnia Last Admin: 11/28/23 02:17 Dose: 6 mg Documented By: ROBBIN Melatonin (Melatonin 3 Mg Tablet) 3 mg PO BEDTIME [facility] Last Admin: 11/27/23 20:20 Dose: 3 mg Documented By: ROBBIN Metoprolol Tartrate (Metoprolol Tartrate 25 Mg Tablet) 25 mg PO BID [facility]; Protocol Last Admin: 11/28/23 08:24 Dose: Not Given Documented By: ISAAC Non-Admin Reason: Strict NPO, aspiration precautions Omeprazole (Omeprazole 20 Mg Capsule.Dr) 20 mg PO BID@0630,1630 [facility] Last Admin: 11/28/23 05:44 Dose: 20 mg Documented By: ROBBIN Ondansetron HCl (Ondansetron Hcl 4 Mg/2 Ml Vial) 4 mg IVPUSH Q8H PRN PRN Reason: Nausea and Vomiting Pramipexole Dihydrochloride (Pramipexole Di-Hcl 0.25 Mg Tablet) 0.75 mg PO BEDTIME [facility] Last Admin: 11/27/23 20:19 Dose: 0.75 mg Documented By: ROBBIN Sodium Chloride (0.9 % Sodium Chloride Flush 3 Ml Syringe) 3 ml IVFLUSH QSHIFT [facility] Last Admin: 11/28/23 08:23 Dose: 3 ml Documented By: ISAAC Labs 11/25/23 05:49 11/25/23 05:49 Assessment and Plan (1) Acute respiratory failure with hypoxemia: Status: Acute Plan An 83 years old male with PMH of dementia , Thyroid Ca w lung Mets who presents to the hospital for behavioural changes and found to have hypernatremia. Acute hypoxemia 2/2 Pneumonia CXR reporting infiltrates Right sided Neck CT negative for obstruction in airways but showing LN, CT chest pain Not Septic zithromax/rocephin Swallow screen - Speech eval to determine best diet neg cultures Wean O2 down as tolerated Acute hypernatremia resolved, due to poor oral intake Parkinsons disease Dementia with behavioural changes reorientation avoid sedating medications restart home parkinson meds physical deconditioning PT>home with hospice hematochezia during BM no further episodes reported h/h stable -- continue to monitor DVT PPx - mechanical due to hematochezia Attending Dr. Coronado DISPO plan for likely dc home with Hospice reason for continued hospitalization: dysphgia and respiratory failure + pneumonia requiring IV abx/oxygenb Quality Stroke Does the patient have a stroke diagnosis?: No VTE Prior VTE?: No VTE Risk Level:: Medical - moderate - high VTE Device Contraindication: Treatment Not Indicated VTE Drug Contraindication: N/A - Med Ordered
--- NOTE | 2023-11-28 17:46 | MHC.SL.SWA ---
Speech Pathologist Impression: Risk of Aspiration, Severe Oropharyngeal Dysphagia Risk of Aspiration Due to: History of Pneumonia Poor PO Intake Reduced Cognition Weak Cough Weak Voice Dysphasia Diet Status: NDD2/Thin Liquid Consistency and Strategies for Safe Swallow: Liquid Intake Recommendation: Thin Liquid Intake Strategies: Small Sips No Straws Double Swallow Solid Food Consistency: Dietary Recommendations: Grnd/Mech Altered (NDD2) Additional Modifications to Solid Foods: Patient and family decided against feeding tube and patient is to be discharged on hospice care, per EMR, anticipated discharge tomorrow. SPOILAGE WORKER spent >75 minutes this date working with patient and his , providing education in regards to MBSS findings from [facility], feeding with risks, and aspiration precautions. Discussed importance of oral care (before each meal) for reducing risk of infection. Patient is deemed high risk for aspiration. SPOILAGE WORKER explained that diet modifications and precautions could reduce the risk, but likely won't prevent aspiration and continued PO intake would not be without risks associated with aspiration. Should patient and family opt to continue PO intake while accepting these risks, recommend diet of GROUND/MECH ALTERED (NDD2) solid and THIN liquids with strategies: take small bites, chew food well, dry swallow between bites, small individual sips of liquid by spoon or cup, no sequential sips, no straws, dry swallow between sips, upright 90 degree position during and for at least 30 minutes after PO intake. Patient is recommended daily oral care, ideally before each meal. This was also reviewed with the patient and his . They were provided with educational handouts RE: oral care, aspiration precautions, and ground/mechanically altered diet recommendations. Patient demonstrated back strategies we taught throughout PO trials: Patient took small bites, chewed well, demonstrated double swallow between each bite and each sip. Recommend continued speech therapy for the treatment of dysphagia through [facility] (continued patient/family education, PO trials, compensatory strategy training). Oral Medication Intake: Crushed with Puree Please contact the pharmacy regarding appropriate crushable or liquid drug formulations that are available whenever modified delivery is recommended. Compensatory Strategies and Precautions to be Taken for Safe Swallow: Sitting Upright (90 deg) Double Swallow No Straw Liquids from Cup Liquids from Spoon Small Bites and Sips Rate of Ingestion Change Avoid Specific Foods Supervision While Eating and Drinking for Safe Swallow: Total Supervision (1:1) Foods to Avoid: Mixed consistencies; hard, chewy, or crumbly foods Swallowing Recommended Treatments: Compens. Strategy Educat. Recommendation for Speech: Inpatient Speech Therapy Speech Therapy Through [facility] Frequency/Duration: M-F while inpatient. Date Range for Service Req: Timeline to reassess: Wallpaper Inspector Clinican/Clinical Fellow: No Supervisory Statement: I have reviewed and agree with the student/clinical fellow's documentation: N/A Speech Language Pathologist: Ro Campa M.A., CCC-SPOILAGE WORKER
[2023-11-28] MEDS: Melatonin 3 MG TABLET PO (19:42)
[2023-11-28] MEDS: Pramipexole Di-HCL 0.25 MG TABLET 0.75 MG PO (19:42)
[2023-11-28] MEDS: Metoprolol Tartrate 25 MG TABLET PO (20:36)
[2023-11-28] MEDS: Atorvastatin Calcium 20 MG TABLET PO (20:37)
[2023-11-29 04:00] VITALS: BP 170/74; PULSE 69; RESP 20; TEMP 36.5; O2SAT 96
[2023-11-29] MEDS: Levothyroxine Sodium 75 MCG TABLET 225 MCG PO (05:43)
[2023-11-29] MEDS: cefTRIAXone sodium 1 GM in 0.9 % Sodium Chloride 50 ML IV (06:09)
[2023-11-29 07:35] VITALS: BP 182/90; PULSE 70; RESP 18; TEMP 36.6; O2SAT 96
[2023-11-29 08:44] VITALS: BP 182/90; PULSE 70
[2023-11-29] MEDS: Azithromycin 500 MG in 0.9 % Sodium Chloride 250 ML 125 MG IV (08:44)
[2023-11-29] MEDS: 0.9 % Sodium Chloride Flush 3 ML SYRINGE IVFLUSH (08:44)
[2023-11-29] MEDS: Finasteride 5 MG TABLET PO (08:44)
[2023-11-29] MEDS: Metoprolol Tartrate 25 MG TABLET PO (08:44)
--- NOTE | 2023-11-29 09:05 | MHC.CM.PN ---
PT DISCHARGING HOME [facility], CM SPOKE TO PT'S DTR/HCP T[facility] TO CONFIRM AT 0900AM, FAISAL BOOKED FOR TRNAPSORT AT 11AM, IMM DELIVERED TO PT'S AT BEDSIDE 11/28/23.
--- NOTE | 2023-11-29 09:33 | PM.DS ---
DS: Providers Provider Date of Service: 11/29/23 Date of admission: 11/24/23 06:22 Primary care physician: Joann Piedra MD Consults: 11/24/23 11:41 Consult to Gastroenterology Routine Consulting Provider: Mallorie Chong Reason for consultation: blood in stool 11/26/23 09:29 Consult for Sitter Routine Reason for consultation: agitation Has provider been notified: No DS: Diagnosis Discharge Diagnosis (1) Acute respiratory failure with hypoxemia: Status: Acute DS: Summary Hospital Course Hospital Course: History and physical as per admitting provider. An 83 years old male with PMH of dementia , Thyroid Ca w lung Mets who presents to the hospital for behavioural changes and found to have hypernatremia. The patient is unable to provide much of history. reported to ED team that he is getting more confused and agitated as his behaviour became much more difficult to control by his and family and they were not sure about the best next step but they are not at the stage of hospice care. they feel they can not manage him at home anymore. In ED found to have Na of 150 and CXR showing evidence of pneumonia requiring O2 supplement. Will be admitted for further work up and management. 83-year-old man treated for acute hypoxemic respiratory failure secondary to pneumonia. Chest x-ray reported right-sided infiltrates may also been component of aspiration as well. Neck CT scan was negative for obstruction. Patient was not septic during hospitalization. He was treated with azithromycin and Rocephin. Speech and swallow team had made him NPO for good majority of his hospitalization due to severe aspiration but his family decided to make him hospice and understood the when he eats he will still have episodes of aspiration. They declined feeding tube. Speech therapy recommended ground diet with thin liquids, no straws, small individual sips by spoon or controlled cup. His blood cultures have remained negative during hospitalization and he was weaned off oxygen. He also had some episodes of acute hypernatremia likely secondary to poor p.o. intake but resolved with D5W. He had some episodes of hematochezia with bowel movement but no further episodes reported during hospitalization and H&H have remained stable. Plan is to discharge patient home on hospice with family and they are in agreement with this. Parkinson's disease, unspecified. Dementia with behavioral changes. Reorientation. Avoid sedating medications Physical deconditioning. Seen evaluated by Physical therapy. Family opting for hospice care at home. Time Attestation Discharge Coordination Time (in mins): 35 Quality: Safe Use of Opioids Does Pt have an Active Cancer Diagnosis on the Problem List?: No Quality: Stroke Does the patient have a stroke diagnosis?: No Physical Exam Vital Signs: Vital Signs: Last Vital Signs Temp 97.9 F 11/29/23 07:35 Pulse 70 11/29/23 08:44 Resp 18 11/29/23 07:35 BP 182/90 H 11/29/23 08:44 Pulse Ox 96 11/29/23 07:35 O2 Del Method Room Air 11/29/23 07:35 O2 Flow Rate 3 11/28/23 23:42 BMI result Body Mass Index 21.7 Appearing in no acute distress head is normocephalic atraumatic eyes pupils are PERRLA sclera is anicteric mouth throat mucous membranes are intact and moist neck is supple no lymphadenopathy, no JVD noted lung sounds are clear to auscultation heart regular rate rhythm, clear S1, S2 positive bowel sounds, abdomen is soft, nontender neuro patient is alert, intermittently confused Discharge Plan Discharge Anticipated Discharge Date/Time: 11/29/23 09:37 Patient Disposition: Hospice - Home Discharge Diagnosis: Acute hypoxemic respiratory failure Community-acquired pneumonia/aspiration pneumonia Hypernatremia Referrals: [facility] [Outside] - 1 Day ([facility], A NURSE WILL ADMIT RONI TODAY ) Joann Piedra MD [Primary Care Provider] - 1 Week Discharge Medications: Continued melatonin 3 mg Tablet 3 mg PO BEDTIME aspirin 81 mg Tablet,Delayed Release (Dr/Ec) 81 mg PO BEDTIME simvastatin 40 mg Tablet 20 mg PO BEDTIME levothyroxine 75 mcg Tablet 225 mcg PO MOTUWETH@0600 pramipexole 0.25 mg Tablet 0.75 mg PO BEDTIME finasteride 5 mg Tablet 5 mg PO DAILY carbidopa-levodopa 10-100 mg Tablet,Disintegrating 1.5 tab PO QID omeprazole 20 mg Tablet,Delayed Release (Dr/Ec) 20 mg PO BID@0630,1630 calcium carbonate 500 mg calcium (1,250 mg) Tablet 500 mg PO DAILY@1200 metoprolol tartrate 25 mg tablet 25 mg PO BID magnesium glycinate 100 mg Tablet 100 mg PO BID@0800,1700 Discharge Orders: Discharge Order (Routine); Ordered 11/29/23 Ordered By: Mayra Haas Diet: Ground food with thin liq Activity on Discharge: As tolerated Stand Alone Forms: Patient Portal Discharge page Print Language: Mongolian Care Plan Goals: Home with hospice Liquid Consistency and Strategies for Safe Swallow: Liquid Intake Recommendation: Thin Liquid Intake Strategies: Small Sips No Straws Double Swallow Solid Food Consistency: Dietary Recommendations: Grnd/Mech Altered (NDD2) Compensatory Strategies and Precautions to be Taken for Safe Swallow: Sitting Upright (90 deg) Double Swallow No Straw Liquids from Cup Liquids from Spoon Small Bites and Sips Avoid Specific Foods Supervision While Eating and Drinking for Safe Swallow: Total Supervision (1:1) Foods to Avoid: Mixed consistencies; hard, chewy, or crumbly foods Health Concerns: Acute hypoxemic respiratory failure Community-acquired pneumonia/aspiration pneumonia Hypernatremia Plan of Treatment: Follow-up with primary care provider if needed Take all medications as prescribed Assessment: See discharge summary
--- NOTE | 2023-11-29 11:32 | MHC.SPEECHCO ---
Pt discharged to Hospice with previous recommendations. RN counselled family on safe feeding strategies prior to discharge.
== END 2023-11-29 11:32 | disposition hospice, home (50) | DRG 193 ==
LOC: HO.ED 11-24 06:02 → HO.EDOVER 11-24 06:27 → HO.IMC 11-24 17:32
PROVIDERS: Emergency Medicine; Admitting Provider Student in an Organized Health Care Education/Training Program; Emergency Provider Internal Medicine; PCP Internal Medicine; Visit Provider Nurse Practitioner Acute Care
DX: J18.9 Pneumonia, unspecified organism (principal); J96.01 Acute respiratory failure with hypoxia; E87.0 Hyperosmolality and hypernatremia; F02.818 Dementia in other diseases classified elsewhere, unspecified severity, with other behavioral disturbance; C78.02 Secondary malignant neoplasm of left lung; C78.01 Secondary malignant neoplasm of right lung; K92.1 Melena; J69.0 Pneumonitis due to inhalation of food and vomit; C73 Malignant neoplasm of thyroid gland; R13.10 Dysphagia, unspecified; G20.A1 Parkinson's disease without dyskinesia, without mention of fluctuations; Z20.822 Contact with and (suspected) exposure to COVID-19; Z79.82 Long term (current) use of aspirin; Z79.890 Hormone replacement therapy; Z79.899 Other long term (current) drug therapy
CPT/HCPCS: 0241U; 36415; 70491; 71045; 71250; 80048; 80053; 80076; 81001; 82803; 82947; 83605; 83735; 83880; 84484; 85025; 85027; 85610; 87040; 87086; 92526; 92610; 93005; 97162; 97530; 99285; J0456; J0696; J1650; J2060; Q9967

== ENCOUNTER → 2023-11-24 06:22 | Outpatient (BNV) | payer OTHER, SELFPAY | PROVIDERS: Admitting Provider Student in an Organized Health Care Education/Training Program; Emergency Provider Internal Medicine; PCP Internal Medicine; Visit Provider Internal Medicine Gastroenterology | DX: K62.5 Hemorrhage of anus and rectum (principal) | CPT/HCPCS: 99222 ==

== ENCOUNTER → 2024-09-01 07:35 | Outpatient (BNV) | payer MEDICARE, OTHER, SELFPAY | PROVIDERS: Emergency Provider Emergency Medicine; PCP Internal Medicine; Visit Provider Specialist | DX: R91.8 Other nonspecific abnormal finding of lung field (principal); R06.00 Dyspnea, unspecified; R07.9 Chest pain, unspecified | CPT/HCPCS: 71045 ==

== ENCOUNTER 2024-09-01 07:44 | Emergency (ER) | payer MEDICARE, OTHER, SELFPAY ==
[2024-09-01] VITALS (7 sets, daily range): BP systolic 148–178; BP diastolic 67–93; PULSE 76–92; RESP 12–20; TEMP 36.1–37; O2SAT 98–100; BMI 27.4
--- NOTE | ~2024-09-01 | XR_ITS ---
CLINICAL HISTORY: sob cp 1 view chest x-ray Comparison: None provided Findings: Portions of the exam are obscured by overlying material and by the positioning of the patient's chin. No consolidation or effusion. Heart size is normal. No acute fracture. IMPRESSION: 1. No acute findings. This document has been electronically signed by: Joseph Weinberg MD on 09/01/2024 08:54:16
--- NOTE | ~2024-09-01 | CT_ITS ---
CLINICAL HISTORY: thyroid CA, increasing SOB, intermittent stridor CT soft tissue neck without contrast Comparison: None provided Findings: Limited examination due to lack of contrast and severe kyphosis. The thyroid gland is not visualized. No large mass of the neck. The airway appears patent. No consolidation at the lung apices. No acute fracture or dislocation. IMPRESSION: No acute findings. Limited examination. This document has been electronically signed by: Ashlee Huddleston MD on 09/01/2024 15:04:15
--- NOTE | ~2024-09-01 | CT_ITS ---
CLINICAL HISTORY: SOB, CP, HX lung metastasis CT angiography chest with contrast. 3D Postprocessing. Comparison: None provided Findings: The heart size is normal. RV/LV ratio is normal. The thoracic aorta is normal caliber. No acute pulmonary embolus. The visualized thyroid and mediastinum are unremarkable. No consolidation or effusion. There are multiple pulmonary nodules: 1.1 x 1.3 cm in the left upper lobe series 6, image 71. There is pneumobilia. No acute fractures. IMPRESSION: No pulmonary emboli. Multiple pulmonary metastasis. This document has been electronically signed by: Ashlee Huddleston MD on 09/01/2024 13:31:20
--- NOTE | 2024-09-01 07:53 | ECG_ITS ---
Test Reason : DYSPNEA Blood Pressure : */* mmHG Vent. Rate : 86 BPM Atrial Rate : 86 BPM P-R Int : 172 ms QRS Dur : 88 ms QT Int : 392 ms P-R-T Axes : 79 9 53 degrees QTcB Int : 469 ms Normal sinus rhythm Poor data quality When compared with ECG of 24-Nov-2023 08:23, Poor data quality Referred By: Generic ED Physician Electronically Signed By: Harish Souza
--- NOTE | 2024-09-01 07:58 | PC.NURSE ---
Patient A&O x 3. PMH parkinsons. Patient presents to ED c/o dyspnea. Symptoms started a couple days ago and havent subsided. O2 99% RA, 12RR, lung sounds clear. Denies sick contacts. VSS and up to date. Plan of care on going
--- NOTE | 2024-09-01 08:16 | ED_ITS ---
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 He reports shortness of breath is at rest as well as on exertion over the past few days. He experiences pain throughout his chest with cough which he states is nonproductive. He has a mild bilateral pedal edema which by his account and his 's has not changed recently he has been making dietary changes to try and mitigate this, was also recently started on furosemide. He denies any history of shortness of breath in the past. He is not a cigarette smoker nor was he ever. He denies any recent fevers or chills. Denies any known sick contacts. Denies dizziness, lightheadedness, numbness or tingling of the extremities. Related Data Home Medications ?Medication ?Instructions ?Recorded ?Confirmed aspirin 81 mg tablet,delayed 81 mg PO BEDTIME 11/24/23 11/24/23 release calcium carbonate 500 mg PO DAILY@1200 4 11/24/23 carbidopa 10 mg-levodopa 100 mg 1.5 tab PO QID 4 11/24/23 disintegrating tablet finasteride 5 mg tablet 5 mg PO DAILY 11/24/2311/23 levothyroxine 75 mcg tablet 225 mcg PO MOTUWETH@0600 0 11/24/23 11/24/23 magnesium glycinate 100 mg (as 100 mg PO BID@0800,1700 11/24/23 11/24/23 glycinate) tablet melatonin 3 mg tablet 3 mg PO BEDTIME Insomnia 03/0611/24/23 metoprolol tartrate 25 mg tablet 25 mg PO BID 11/24/23 11/24/23 omeprazole 20 mg tablet,delayed 20 mg PO BID@0630,1630 11/24/23 11/24/23 release pramipexole 0.25 mg tablet 0.75 mg PO BEDTIME 11/24/23 11/24/23 simvastatin 40 mg tablet 20 mg PO BEDTIME 11/24/23 Previous Rx's ?Medication ?Instructions ?Recorded lorazepam 2 mg tablet (Ativan) 2 mg PO BEDTIME PRN SOB / vocal 09/01/24 irritation #7 tabs Allergies Allergy/AdvReac Type Severity Reaction Status Date / Time mirabegron (From Myrbetriq) Allergy Severe rash Verified 09/01/24 07:47 Opioids - Morphine Analogues Allergy Intermediate rash Verified 09/01/24 07:47 oxybutynin Allergy Intermediate rash Verified 09/01/24 07:47 Review of Systems 2 Review of Systems: Yes all other systems are reviewed and are negative PMFSH Past Medical History Attestation statement: The following information was validated with the patient. Source: old records reviewed Medical History Dementia with behavioral disturbance Cholecystitis HLD (hyperlipidemia) HTN (hypertension) GERD (gastroesophageal reflux disease) Parkinsons Social History Social History Household Members: Spouse Housing: House Do you presently have visiting nurse or other home services: No Alcohol intake: never Patient Tobacco Use Status: Never used Tobacco Smoked in Last 30 Days: No e-Cigarette/Vaping Use: Never Used Use of substances other than those prescribed or required for medical reasons: No Advance Directives: Yes Advance Directives Information Provided: No Advance Directives on File: No Do you have a plan to hurt others: No Plan service: Yes Physical Exam 2 Vital Signs: Vital Signs: Last Vital Signs Temp 97.8 F 09/01/24 18:20 Pulse 76 09/01/24 18:20 Resp 18 09/01/24 18:20 BP 170/74 H 09/01/24 18:20 Pulse Ox 98 09/01/24 18:20 O2 Del Method Room Air 09/01/24 18:20 BMI result Body Mass Index 27.4 Appearance: Alert.?Oriented to person, place and time. No acute distress.?Normal affect. Eyes: Pupils equal, round and reactive to light.? ENT: Pharynx normal.?? Neck: Normal inspection.? Neck supple.?? CVS: Heart sounds normal. Normal heart rate and rhythm.? Pulses normal.?? Respiratory: No respiratory distress.? Lung sounds clear to auscultation bilaterally?? Abdomen: Soft and non-tender. Normoactive bowel sounds. Skin: Skin warm and dry.? Normal skin color.? Extremities: +bilateral lower extremity pedal edema.? No calf ttp? Neuro: Moves all extremities spontaneously. Sensation intact bilaterally. Baseline tremor secondary to Parkinson's. No focal neuro deficits. Ambulates with unsteady gait and use of wheeled walker Course Reevaluation(s) Reevaluation #1: CBC is without leukocytosis, has a normocytic anemia that does not meet transfusion criteria, no thrombocytopenia. Mildly hypernatremic with sodium of 146, no SHARON. LFTs unremarkable. high sensitive troponin within normal range, ECG nonischemic, not appear consistent with ACS at this time.. BNP was 35, no pleural effusions on CXR, not consistent with CHF exacerbation, no appreciable consolidation infiltrate to suggest pneumonia. Urinalysis without compelling evidence of urinary tract infection trace leukocyte esterase asymptomatic is however it concentrated with spc grav 1.025, likely secondary to dehydration. viral serologies are negative. Patient will receive 1 L normal saline IV, will obtain CT angio of the chest shows pulmonary embolism. Reevaluation #2: 11:47 Nursing reported that family was concerned if he could potentially have food stuck in his throat the typically have to puree his food. He is not experiencing any drooling, he has been able to tolerate sips of water without associated cough, difficulty swallowing, increased work of breathing. 13:45 CT angio of the chest without evidence of pulmonary embolism, multiple pulmonary metastasis present. Nursing staff has brought to my attention at this time that over the past 10 minutes patient is breathing has become rather noisy, most like stridor however this stops entirely when he is speaking. He is still able to speak clearly to me, answering questions appropriately. There is no tracheal tugging or deviation. He is without hypoxia has a mild tachypnea. It is somewhat difficult to auscultate the lung sounds given the upper airway noises associated with his breathing. Plan to obtain CT soft tissue neck Reevaluation #3: CT soft tissue neck is limited due to kyphosis and lack of contrast, thyroid is not visualized however there is no large neck mass noted, airway appears to be patent. The stridor is noises has been intermittent and do seem to exacerbate with the presence of staff in the room. Family questions whether there may be an anxiety component to this, though patient does not have a known history of anxiety. Concern that given his malignancy there may be some paralysis to the vocal cords, positive impingement of the nerve resulting in these upper airway sounds. I did discuss this with my attending Dr. Minor, recommends trialing either low-dose lorazepam to facilitate with symptoms, if not beneficial we may alternatively trial morphine. Do not see indication for inpatient hospital admission at this time. He likely would benefit from outpatient follow-up with his oncologist, they may consider repeat imaging of the neck with contrast, and/or referral to ENT for further evaluation of potential vocal cord paralysis. Patient and family are agreeable with plan of care at this time Additional Reevaluation(s): 17:50 Patient will be signed out to [facility] pending re-evaluation after lorazepam again if not beneficial may trial morphine, anticipate discharge as noted above VERONIKA McdanielC [id number] ---> Patient tolerated ativan well and stated that it helped. Small course sent to the pharmacy. Patient cleared for discharge. Medications Administered Discontinued Medications Generic Name Dose Route Start Last Admin Trade Name Robertoq PRN Reason Stop Dose Admin Carbidopa/Levodopa 1 tab 09/01/24 13:58 09/01/24 14:12 Carbidopa/Levodopa 25/100 Tablet PO 09/01/24 13:59 1 tab ONCE ONE Administration Sodium Chloride 1,000 mls @ 999 mls/hr 09/01/24 09:45 09/01/24 10:53 Ns IV 09/01/24 10:45 Infused .Q1H1M RAYMOND Infusion Iohexol 100 ml 09/01/24 09:55 09/01/24 09:56 Iohexol 350 Mg/Ml 100 Ml Infus..Btl IV 09/01/24 09:56 65 ml ONCE ONE Administration Lorazepam 0.5 mg 09/01/24 17:21 09/01/24 17:37 Lorazepam 0.5 Mg Tablet PO 09/01/24 17:22 0.5 mg ONCE ONE Administration Medical Decision Making Medical Decision Making [facility] Narrative: Patient is an 84-year-old male with past medical history of Parkinson's, GERD, hypertension, hyperlipidemia, cholecystitis, thyroid 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 Overall he appears nontoxic, currently afebrile, no tachycardia, no tachypnea hypoxia, no evidence of respiratory distress. No rash or lesions, urticaria, or evidence of angioedema to suggest allergic reaction/anaphylaxis. He has associated chest pain during episodes of cough, lower extremity swelling which he states is at baseline no erythema no calf tenderness upon palpation however he does have a history of malignancy, leaving pulmonary embolism on the differential, potentially ACS given the presence of chest pain, pleural effusion, CHF. He denies having any palpitations has no history of arrhythmias. No history of diabetes, unlikely DKA. No acute bleeding or known anemia, no associated dizziness fatigue or chest pain to suggest acute anemia. No history of asthma or COPD to suggest acute exacerbation. Differential Diagnosis Differential Diagnoses: The differential diagnosis associated with the presentation includes (See narrative above) Admission/Observation Consideration of admission/observation: Escalation of care including admission/observation considered Lab Data MDM Lab Attestation statement: I reviewed the patient's lab results. 09/01/24 08:20 09/01/24 08:19 Labs: Lab Results 09/01/24 09/01/24 09/01/24 Range/Units 08:17 08:19 08:20 WBC 6.9 (4.8-10.8) X10*3/uL RBC 4.52 L (4.60-5.80) X10*6/uL Hgb 12.8 L (14.0-18.0) g/dl Hct 38.9 L (42.0-52.0) % MCV 86.1 (80.0-98.0) fL MCH 28.3 (27.0-33.0) pg MCHC 32.9 (31.0-36.0) g/dl RDW 13.6 (11.0-16.0) % Plt Count 314 (160-400) X10*3/uL MPV 9.1 L (9.4-12.4) fL Immature Gran % (Auto) 0.1 (0.0-0.4) % Neut % (Auto) 79.4 H (45-73) % Lymph % (Auto) 10.1 L (20-40) % Gilmer % (Auto) 8.6 (2-11) % Eos % (Auto) 1.2 (0-4) % Baso % (Auto) 0.6 (0-2) % Lymph # (Auto) 0.7 L (1.2-4.9) X10*3/uL Gilmer # (Auto) 0.6 (0.1-1.2) X10*3/uL Eos # (Auto) 0.1 (0.0-0.4) X10*3/uL Baso # (Auto) 0.0 (0.0-0.2) X10*3/uL Abs Immat Gran (auto) 0.01 (0.00-0.03) X10*3/uL Absolute Neuts (auto) 5.5 (2.0-8.3) x10*3/uL Absolute Nucleated RBC 0.000 (0.0-0.012) X10*3/uL Nucleated RBC % (auto) 0.0 (0.0-0.2) /100WBC Sodium 146 H (135-145) mmol/L Potassium 3.6 (3.3-5.1) mmol/L Chloride 106 (96-108) mmol/L Carbon Dioxide 30 H (22-29) mmol/L Anion Gap 14 (12-20) BUN 26 H (9-16) mg/dL Creatinine 0.92 (0.5-1.4) mg/dL Estim Creat Clear Calc 58.4 Estimated GFR > 60 Random Glucose 100 (60-115) mg/dL Calcium 9.3 D (8.4-10.2) mg/dL Magnesium 2.3 (1.6-2.6) mg/dL Total Bilirubin 0.6 (0.0-1.0) mg/dL AST 28 (5-37) U/L ALT 11 (0-40) U/L Alkaline Phosphatase 81 (39-117) U/L Troponin I High Sens 4.8 D (<3.5-35.0) ng/L B-Natriuretic Peptide 35 (<100) pg/mL Total Protein 7.4 (6.5-8.0) g/dL Albumin 4.3 (3.5-5.0) g/dL Urine Color Urine Appearance Urine pH (5.0-9.0) Ur Specific [place] (1.005-1.025) Urine Protein (Neg-Trace) mg/dL Urine Glucose (UA) (Negative) mg/dL Urine Ketones (Negative) mg/dL Urine Blood (Negative) Urine Nitrite (Negative) Ur Leukocyte Esterase (Negative) Urine RBC (0-2) /HPF Urine WBC (0-5) /HPF Ur Squamous Epith Cells (0-2) /HPF Urine Bacteria (None Seen) Hyaline Casts (0-2) /LPF Influenza Type A (PCR) NEGATIVE (Negative) Influenza Type B (PCR) NEGATIVE (Negative) RSV RNA Qual (PCR) NEGATIVE (Negative) SARS-CoV-2 RNA (RT-PCR) NEGATIVE (Negative) 09/01/24 Range/Units 09:14 WBC (4.8-10.8) X10*3/uL RBC (4.60-5.80) X10*6/uL Hgb (14.0-18.0) g/dl Hct (42.0-52.0) % MCV (80.0-98.0) fL MCH (27.0-33.0) pg MCHC (31.0-36.0) g/dl RDW (11.0-16.0) % Plt Count (160-400) X10*3/uL MPV (9.4-12.4) fL Immature Gran % (Auto) (0.0-0.4) % Neut % (Auto) (45-73) % Lymph % (Auto) (20-40) % Gilmer % (Auto) (2-11) % Eos % (Auto) (0-4) % Baso % (Auto) (0-2) % Lymph # (Auto) (1.2-4.9) X10*3/uL Gilmer # (Auto) (0.1-1.2) X10*3/uL Eos # (Auto) (0.0-0.4) X10*3/uL Baso # (Auto) (0.0-0.2) X10*3/uL Abs Immat Gran (auto) (0.00-0.03) X10*3/uL Absolute Neuts (auto) (2.0-8.3) x10*3/uL Absolute Nucleated RBC (0.0-0.012) X10*3/uL Nucleated RBC % (auto) (0.0-0.2) /100WBC Sodium (135-145) mmol/L Potassium (3.3-5.1) mmol/L Chloride (96-108) mmol/L Carbon Dioxide (22-29) mmol/L Anion Gap (12-20) BUN (9-16) mg/dL Creatinine (0.5-1.4) mg/dL Estim Creat Clear Calc Estimated GFR Random Glucose (60-115) mg/dL Calcium (8.4-10.2) mg/dL Magnesium (1.6-2.6) mg/dL Total Bilirubin (0.0-1.0) mg/dL AST (5-37) U/L ALT (0-40) U/L Alkaline Phosphatase (39-117) U/L Troponin I High Sens (<3.5-35.0) ng/L B-Natriuretic Peptide (<100) pg/mL Total Protein (6.5-8.0) g/dL Albumin (3.5-5.0) g/dL Urine Color Yellow Urine Appearance Clear Urine pH 5.5 (5.0-9.0) Ur Specific [place] 1.025 (1.005-1.025) Urine Protein Negative (Neg-Trace) mg/dL Urine Glucose (UA) Negative (Negative) mg/dL Urine Ketones Trace (Negative) mg/dL Urine Blood Negative (Negative) Urine Nitrite Negative (Negative) Ur Leukocyte Esterase Trace H (Negative) Urine RBC 0-2 (0-2) /HPF Urine WBC 0-5 (0-5) /HPF Ur Squamous Epith Cells 0-2 (0-2) /HPF Urine Bacteria None Seen (None Seen) Hyaline Casts 0-2 (0-2) /LPF Influenza Type A (PCR) (Negative) Influenza Type B (PCR) (Negative) RSV RNA Qual (PCR) (Negative) SARS-CoV-2 RNA (RT-PCR) (Negative) Independent Interpretation I performed an independent interpretation of an: EKG (ECG your reveals a normal sinus rhythm, ventricular rate of 86, normal KEVIN, QTC 409, no ST-elevation) and Plain X-Ray (See narrative above) Radiology Impression Discussion of test interpretation with radiology: I have reviewed the radiologist's reading. Radiologist Impression: 1 view chest x-ray Comparison: None provided Findings: Portions of the exam are obscured by overlying material and by the positioning of the patient's chin. No consolidation or effusion. Heart size is normal. No acute fracture. IMPRESSION: 1. No acute findings. CT angiography chest with contrast. 3D Postprocessing. Comparison: None provided Findings: The heart size is normal. RV/LV ratio is normal. The thoracic aorta is normal caliber. No acute pulmonary embolus. The visualized thyroid and mediastinum are unremarkable. No consolidation or effusion. There are multiple pulmonary nodules: 1.1 x 1.3 cm in the left upper lobe series 6, image 71. There is pneumobilia. No acute fractures. IMPRESSION: No pulmonary emboli. Multiple pulmonary metastasis. CT soft tissue neck without contrast Comparison: None provided Findings: Limited examination due to lack of contrast and severe kyphosis. The thyroid gland is not visualized. No large mass of the neck. The airway appears patent. No consolidation at the lung apices. No acute fracture or dislocation. IMPRESSION: No acute findings. Limited examination. Independent Historian Clinical information obtained from an independent historian. History obtained from or confirmed by: Spouse External Record Review External record reviewed: Outpatient record Chronic Conditions Patient?s care impacted by: Other (See narrative above) Discharge Plan Discharge Clinical Impression: Shortness of breath Patient Disposition: Home, Self-Care Additional Instructions: You had a workup in the emergency department today for your shortness of breath over the past few days as well as the noisy breathing that you began experiencing. CT imaging did not show evidence of a blood clot in the lungs or pneumonia, findings of metastasis wrist to the wires from your cancer. On subsequently developed this noisy breathing known as stridor, which isn't upper airway noise. CT imaging of your neck was performed, your thyroid was not visualized, however there was no signs of impingement or and closure on your airway. As mentioned, individuals with neck cancers can develop vocal cord paralysis, sometimes due to impingement of the no responsible for this area which can result in these stridor like noises. It is recommended that you contact your oncologist to arrange for follow-up, they may consider repeat imaging with CT of the neck with contrast, and/or referral to ENT for further evaluation of potential vocal cord paralysis. Prescriptions: New lorazepam [Ativan] 2 mg tablet 2 mg PO BEDTIME PRN (Reason: SOB / vocal irritation) Qty: 7 0RF No Action melatonin 3 mg Tablet 3 mg PO BEDTIME aspirin 81 mg Tablet,Delayed Release (Dr/Ec) 81 mg PO BEDTIME simvastatin 40 mg Tablet 20 mg PO BEDTIME levothyroxine 75 mcg Tablet 225 mcg PO MOTUWETH@0600 pramipexole 0.25 mg Tablet 0.75 mg PO BEDTIME finasteride 5 mg Tablet 5 mg PO DAILY carbidopa-levodopa 10-100 mg Tablet,Disintegrating 1.5 tab PO QID omeprazole 20 mg Tablet,Delayed Release (Dr/Ec) 20 mg PO BID@0630,1630 calcium carbonate 500 mg calcium (1,250 mg) Tablet 500 mg PO DAILY@1200 metoprolol tartrate 25 mg tablet 25 mg PO BID magnesium glycinate 100 mg Tablet 100 mg PO BID@0800,1700 Print Language: Unable To Collect
[2024-09-01 08:25] LABS: MANUAL DIFF FLAG NO
[2024-09-01 08:28] LABS: Basophils Percent Auto 0.6 % (0-2); Eosinophils Absolute Auto 0.1 X10*3/uL (0.0-0.4); Eosinophils Percent Auto 1.2 % (0-4); Hematocrit 38.9 % (42.0-52.0); Hemoglobin 12.8 g/dl (14.0-18.0); Imm Gran Abs Auto 0.01 X10*3/uL (0.00-0.03); Imm Gran Pct Auto 0.1 % (0.0-0.4); Lymphocytes Absolute Auto 0.7 X10*3/uL (1.2-4.9); Lymphocytes Percent Auto 10.1 % (20-40); Mean Corpuscular HGB Conc 32.9 g/dl (31.0-36.0); Mean Corpuscular Hemoglobin 28.3 pg (27.0-33.0); Mean Corpuscular Volume 86.1 fL (80.0-98.0); Mean Platelet Volume 9.1 fL (9.4-12.4); Monocytes Absolute Auto 0.6 X10*3/uL (0.1-1.2); Monocytes Percent Auto 8.6 % (2-11); Neutrophils Absolute Auto 5.5 x10*3/uL (2.0-8.3); Neutrophils Percent Auto 79.4 % (45-73); Platelet Count 314 X10*3/uL (160-400); Red Blood Count 4.52 X10*6/uL (4.60-5.80); Red Cell Distribution Width 13.6 % (11.0-16.0); White Blood Count 6.9 X10*3/uL (4.8-10.8)
[2024-09-01 08:47] LABS: B Type Natriuretic Peptide 35 pg/mL (<100)
[2024-09-01 08:49] LABS: Anion Gap 14 (12-20)
[2024-09-01 08:54] LABS: Alanine Aminotransferase 11 U/L (0-40); Albumin Level 4.3 g/dL (3.5-5.0); Alkaline Phosphatase 81 U/L (39-117); Aspartate Amino Transferase 28 U/L (5-37); Bilirubin Total 0.6 mg/dL (0.0-1.0); Blood Urea Nitrogen 26 mg/dL (9-16); Calcium 9.3 mg/dL (8.4-10.2); Carbon Dioxide 30 mmol/L (22-29); Chloride 106 mmol/L (96-108); Creatinine Clr Calc Pharmacy 58.4; Estimated Glomerular Filt Rate > 60; Glucose Random 100 mg/dL (60-115); Magnesium 2.3 mg/dL (1.6-2.6); Potassium 3.6 mmol/L (3.3-5.1); Sodium 146 mmol/L (135-145); Total Protein 7.4 g/dL (6.5-8.0)
[2024-09-01 08:58] LABS: Troponin-I High Sensitivity 4.8 ng/L (<3.5-35.0)
[2024-09-01 09:05] LABS: Influenza A PCR NEGATIVE (Negative); Influenza B PCR NEGATIVE (Negative); Resp Syncy Virus RNA Qual PCR NEGATIVE (Negative); SARS COV2 PCR INHOUSE NEGATIVE (Negative)
[2024-09-01 09:21] LABS: Appearance Urine Clear; Color Urine Yellow; Glucose Urine UA Negative (Negative); Leukocyte Esterase Urine Trace (Negative); Nitrite Urine Negative (Negative); PH 5.5 (5.0-9.0); Specific Gravity - Urine 1.025 (1.005-1.025); UMIC TRIGGER UACC YES; Urine Blood Negative (Negative); Urine Ketones Trace mg/dL (Negative); Urine Protein Negative (Neg-Trace)
[2024-09-01 09:23] LABS: Bacteria Urine None Seen (None Seen); Hyaline Casts Urine 0-2 /LPF (0-2); RBC Urine 0-2 /HPF (0-2); Squamous Epithelial Cell Urine 0-2 /HPF (0-2); WBC Urine 0-5 /HPF (0-5)
[2024-09-01] MEDS: 0.9 % Sodium Chloride 1,000 ML 999 ML IV (09:55)
[2024-09-01] MEDS: iohexoL 350 MG/ML 100 ML INFUS..BTL IV (09:56)
--- NOTE | 2024-09-01 11:43 | PC.NURSE ---
1:1 assist needed to get OOB. urinal utilized/emptied. pt assisted back into bed w/o difficulty. call wong placed within reach.
--- NOTE | 2024-09-01 12:32 | PC.NURSE ---
Family concerned that patient may have a food bolus stuck in his throat as he does have difficulty swallowing and has to have his food pureed and believe that's why he is breathing heavily. Nursing swallow eval completed. Patient able to manage saliva. Patient took sips of water without coughing or wet voice. Patient stated It feels like im choking when i drink . Notified Provider of results
--- NOTE | 2024-09-01 13:52 | PC.RT ---
Pt seen by RT. Pt has audible upper airway noise, resembling occlusion and heard throughout lungs by auscultation. RT attempted to reposition pt to open airway however pt anatomy due to Parkinson's is stiff and hunched. Pt VS stable, 100% on RA. Pt breathing does not appear distressed despite audible noise. PA aware.
[2024-09-01] MEDS: Carbidopa/Levodopa 25/100 TABLET 1 TAB PO (14:12)
--- NOTE | 2024-09-01 14:19 | PC.NURSE ---
tolerated sinemet PO crushed in pudding well. no cough/clearing of throat afterwards.
[2024-09-01] MEDS: LORazepam 0.5 MG TABLET PO ×2 (17:37→19:28)
--- NOTE | 2024-09-01 18:57 | PC.NURSE ---
Patient tolerated medication administration. Airway still patent, audible breathing noise has been reduced, but intermittently present. Patient able to manage secretions. Provider notified.
== END 2024-09-01 19:30 | disposition home or self-care (01) ==
PROVIDERS: Nurse Practitioner Family; Emergency Provider Emergency Medicine; PCP Internal Medicine
DX: R06.02 Shortness of breath (principal); R05.9 Cough, unspecified; Z03.818 Encounter for observation for suspected exposure to other biological agents ruled out; I10 Essential (primary) hypertension; E78.5 Hyperlipidemia, unspecified; G20.A1 Parkinson's disease without dyskinesia, without mention of fluctuations; F02.80 Dementia in other diseases classified elsewhere, unspecified severity, without behavioral disturbance, psychotic disturbance, mood disturbance, and anxiety; Z79.899 Other long term (current) drug therapy; Z79.82 Long term (current) use of aspirin; Z79.02 Long term (current) use of antithrombotics/antiplatelets
CPT/HCPCS: 0241U; 36415; 70490; 71045; 71275; 80053; 81001; 83735; 83880; 84484; 85025; 93005; 96360; 99284; 99285; Q9967

== ENCOUNTER → 2024-09-01 07:53 | Outpatient (BNV) | payer MEDICARE, OTHER, SELFPAY | PROVIDERS: Emergency Provider Emergency Medicine; PCP Internal Medicine; Visit Provider Internal Medicine Cardiovascular Disease | DX: R06.00 Dyspnea, unspecified (principal) | CPT/HCPCS: 93010 ==

== ENCOUNTER 2024-10-19 15:07 | Emergency (ER) | payer MEDICARE, OTHER, SELFPAY ==
--- OUTSIDE RECORDS SUMMARY | 2023-11-30 07:00 | XMS_ITS ---
Author Organization [facility] Address [address] [place] [address] Care Team Providers Care Marriage And Family Counselor Name Role Phone Malaika MEYERS, Felipa Primary Care Provider UnavailRadha Rust [phone] Encounters Encounter Location Date Provider Diagnosis [facility] [address] [place] [address] 11/30/2023 Radha Schreiber Plan Of Treatment Next Appt Details Provider Name:Radha mann, 12/21/2024 11:15:00 AM, [address] [place], [address], Progress Notes * MARU SimeonDOB:1940 (84 yo M)Acc No.[id number]:11/30/2023 Progress Note Patient: Simeon TYLER Provider: Srinivas Schreiber DPM :1940 A ge:83 Y S ex:Male Date:11/30/2023 Address[address] [id number] Pcp:Felipa Dai MD Subjective: * Chief Complaints: * * Medical History: Objective: * Vitals: Assessment: Plan: * Treatment: * Images: * The named appointment provid er may or may not be the originator of this progress note, and it is not deemed complete until electronically signed by the appointment provider. Sign off status: Pending * Provider: Srinivas Schreiber DPM Date: 0 11/30/2023 Generated for Minoo vallecillo/Kierra/Omayra on: 0 10/19/2024 03:51 PM EDT
--- OUTSIDE RECORDS SUMMARY | 2023-12-27 18:47 | XMS_ITS ---
Author Name [facility] [place] Organization [facility] [place] Address [address] [place] [address] Care Team Providers Care End Trimmer Name Role Phone JOHAN MOSLEY Primary Care Provider Unavail able Insurance Providers: All historical and current Section Date Range: From patient's date of to the date document was created. This section includes the names of all active insurance providers for the patient. Insurance Provider Type of Coverage Plan Name Start of Policy Coverage End of Policy Coverage Group Number Member ID Insurance Provider's Telephone Number Policy Rene's Name Patient's Relationship to Policy Rene [employer] SUPPLEMEN TAL MED SUPP 1A Mar 14, 2020 [id number] RONI CAPPS PATIENT MEDICARE (WNR) MEDICARE (M) PART B Apr 14, 2007 PART B [id number] RONI CAPPS PATIENT MEDICARE (WNR) MEDICARE (M) PART A May 12, 2005 PART A [id number] RONI CAPPS PATIENT Selected Encounter This section includes the information on record at [place] for the Encounter. Date/Time Encounter Type Encounter Description Reason Pro vider Source Dec 27, 2023 10:47 PM Outpatient Encounter ADMIN PAT ACTIVTIES (MASNONCT) IHE Encounter Template Text not used by [place] Plan of Treatment: Future Appointments (+ 6 months) and Future Tests (+/- 45 days) The Plan of Treatment section includes future care activities for the patient from all [place] [facility] This section includes future appointments and future orders which are active, pending or scheduled. Future Appointments This section includes appointments that were scheduled to occur 6 months from the date of the Encounter, up to a maximum of 20 appointments. The data comes from all [facility]. Appointment Date/Time Appointment Type Appointme nt Facility Name Jan 27, 2024 01:00 PM AMBULATORY - MEDICINE [facility] Jan 27, 2024 02:00 PM [facility] [place] [facility] May 15, 2024 12:30 PM [facility] May 17, 2024 08:00 AM [facility] Jun 05, 2024 02:00 PM [facility] Active, Pending, and Scheduled Orders This section includes a listing of several types of active, pending, and scheduled orders, including clinic medications orders, diagnostic test orders, procedure orders and consult orders; where the start date of the order is 45 days before the date of the Encounter or 45 days after the date of theEncounter. The data comes from all [facility]. Test Date/Time Test Type Test Details Facility Name Dec 27, 2023 12:00 AM Laboratory - Chemi stry Order TSH BLOOD (SST-SERUM) [facility] Dec 27, 2023 12:00 AM Laboratory - Chemi stry Order LIPID PANEL, NON FASTING BLOOD (SST-SERUM) [facility] Dec 27, 2023 12:00 AM Laboratory - Chemi stry Order LIVER FUNCTION BLOOD (SST-SERUM) [facility] Encounter Notes: All associated encounter notes This section contains the clinical notes associated to the Encounter. Date/Time Encounter Note(s) Provider Source Dec 27, 2023 10:49 PM PHARMACY NOTE: LOCAL TITLE: V1 PHARMACY CUSTOMER CARE MEDICATION RENEWAL STANDARD TITLE: PHARMACY NOTE DATE OF NOTE: DEC 27, 2023@22:49 ENTRY DATE: DEC 27, 2023@22:49:04 AUTHOR: MART VALLADARES COSIGNER: URGENCY: STATUS: COMPLETED Date: Dec Division: [place] Pt referred by Pharmacy Call Center for medication renewal: Non-controlled/maintenanc e medication Medications requested: [id number]$ CARBIDOPA 25/LEVODOPA 100MG TAB Defer to specialty clinic To be mailed . Please review and renew if appropriate. *This note was generated by [facility] Pharmacy Customer Care. If you have any questions or need assistance, do not contact this author. Please refer all questions to your local, on-site pharmacy departments. /lucina VALLADARES CPhT Licensed Midwife, [place]/Pharmacy Customer Care Signed: 12/27/2023 22:49 Receipt Acknowledged By: 01/13/2024 09:17 /karime/ ROMEO CHAVARRIA MD PHYSICIAN MART VALLADARES [facility] Dec 27, 2023 10:47 PM PHARMACY NOTE: LOCAL TITLE: PHARMACY CUSTOMER CARE MEDICATION RENEWAL STANDARD TITLE: PHARMACY NOTE DATE OF NOTE: DEC 27, 2023@22:47 ENTRY DATE: DEC 27, 2023@22:47:44 AUTHOR: MART VALLADARES EXP COSIGNER: URGENCY: STATUS: COMPLETED Date: Dec Division: [place] Pt referred by Pharmacy Call Center for medication renewal: Non-controlled/maintenanc e medication Medications requested: [id number]$ LEVOTHYROXINE NA (SYNTHROID) 75MCG TAB Defer to primary care provider To be mailed . Please review and renew if appropriate. *This note was generated by [facility] Pharmacy Customer Care. If you have any questions or need assistance, do not contact this author. Please refer all questions to your local, on-site pharmacy departments. /lucina VALLADARES CPhT Licensed Midwife, [place]/Pharmacy Customer Care Signed: 12/27/2023 22:48 Receipt Acknowledged By: 01/03/2024 08:31 /karime/ NITHYA BETATY MD PHYSICIAN 12/28/2023 15:15 /karime/ NEO CHAMORRO RN REGISTERED NURSE MART VALLADARES [facility]
--- NOTE | ~2024-10-19 | CT_ITS ---
EXAMINATION: CT brain and CT cervical spine without contrast. CLINICAL INDICATION: Fall, head strike COMPARISON: MRI brain 04/28/2007. TECHNIQUE: 5 mm thin axial and reformatted 2 mm thin coronal and sagittal images of brain were obtained. Subsequently axial 3 mm thin and reformatted 2 mm thin sagittal and coronal images of cervical spine were obtained. DLP [id number]. This CT examination was performed using dose optimization techniques as appropriate, variously including the following: *Automated exposure control *Adjustment of mA and/or kV according to patient size (this includes techniques or standardized protocols for targeted exams where dose is matched to indication/reason for exam; i.e. extremities or head) *Use of iterative reconstruction technique FINDINGS: BRAIN: There is no acute intra-axial, extra-axial bleed, masses, collection or midline shift. There is no acute infarction evolution. There is no edema. The lateral ventricles are symmetrical in size but mildly enlarged. Bone windows reveal no calvarial abnormality. There is no abnormality in the posterior fossa. Bone windows reveal no calvarial abnormality. Is mild left-parietal scalp laceration and edema. No underlying calvarial fracture bony abnormality. Bilateral paranasal sinuses and mastoid air cells are well-aerated. Incidental finding of bony spur left nasal bone. CERVICAL SPINE: Limited exam secondary to significant kyphosis. There is an exaggerated thoracic kyphosis. Grade 1 anterolisthesis C3 over C4 and C4 over C5 is noted. There is loss of disc height virtually at every disc level worse C5-C6, C6-C7 and C7-T1 disc levels. No aggressive lytic or sclerotic process seen. The prevertebral and paravertebral soft tissues are normal. CT/CT cervical spine wo IV con IMPRESSION: No acute intracranial process seen. There is high left parietal soft tissue laceration and edema. Exaggerated thoracic kyphosis with listhesis as described above. The exam is limited secondary to extreme kyphosis there are degenerative disc changes. No visible acute fracture, dislocation or lytic process seen. Electronically signed by: Yaw Valdes MD 10/19/2024 04:41 PM EDT
[2024-10-19 15:15] VITALS: BP 143/65; PULSE 76; O2SAT 96; BMI 24.4
[2024-10-19 15:19] VITALS: BP 151/44; BP 156/84; PULSE 87; RESP 118; RESP 18; TEMP 36.6; TEMP 36.7; O2SAT 95
--- NOTE | 2024-10-19 15:29 | ECG_ITS ---
Test Reason : FALL Blood Pressure : */* mmHG Vent. Rate : 86 BPM Atrial Rate : 86 BPM P-R Int : 176 ms QRS Dur : 94 ms QT Int : 380 ms P-R-T Axes : 50 -5 33 degrees QTcB Int : 454 ms Artifact in tracing Undetermined rhythm Due to poor quality, cannot interpret When compared with ECG of 01-Sep-2024 08:00, due to poor quality, cannot compare Referred By: Sumit Alberts Electronically Signed By: TAY SELF
[2024-10-19] MEDS: Diphth,Pertus(ACell),Tet Adult 0.5 ML SYRINGE IM (15:43)
[2024-10-19 15:44] LABS: MANUAL DIFF FLAG NO
[2024-10-19 15:46] LABS: Hematocrit 32.9 % (42.0-52.0); Hemoglobin 11.3 g/dl (14.0-18.0); Imm Gran Abs Auto 0.02 X10*3/uL (0.00-0.03); Imm Gran Pct Auto 0.4 % (0.0-0.4); Lymphocytes Absolute Auto 0.8 X10*3/uL (1.2-4.9); Mean Corpuscular HGB Conc 34.3 g/dl (31.0-36.0); Mean Corpuscular Hemoglobin 28.5 pg (27.0-33.0); Mean Corpuscular Volume 83.1 fL (80.0-98.0); NRBC Abs Auto 0.000 X10*3/uL (0.0-0.012); NRBC Pct Auto 0.0 /100WBC (0.0-0.2); Platelet Count 228 X10*3/uL (160-400); Red Blood Count 3.96 X10*6/uL (4.60-5.80); White Blood Count 5.4 X10*3/uL (4.8-10.8)
--- OUTSIDE RECORDS SUMMARY | 2024-10-19 15:52 | XMS_ITS | Clinical Summary ---
Author Organization [facility] Address [address] [place] [address] Care Team Providers Care Electrical Equipment Tester Name Role Phone Felipa Dai MD Primary Care Provider [phone] Allergies Active Allergy Reactions Criticality Noted Date Comments Fluorouracil Hives 02/23/2023 Gabapentin 07/11/2019 Other reaction(s): Nightmares Morphine 02/02/2019 Mirabegron 06/06/2018 Oxybutynin 06/06/2018 Pregabalin 08/24/2022 Medications Medication Sig Dispensed Refills Start Date End Date Status lisinopril (PRINIVIL,ZESTRIL) tablet 5 mg Take 1 tablet (5 mg total) by mouth daily. 0 Active doxazosin (CARDURA) 4 MG tablet Take 1 tablet (4 mg total) by mouth every night at bedtime. 0 Active simvastatin (ZOCOR) 80 MG tablet Take 1 tablet (80 mg total) by mouth every night at bedtime. 0 Active rOPINIRole (REQUIP) 1 MG tablet Take 1 tablet (1 mg total) by mouth 3 (three) times a day. 0 Active selegiline (ELDEPRYL) 5 MG tablet Take 1 tablet (5 mg total) by mouth 2 (two) times a day with meals. 0 Active omeprazole (PriLOSEC) 20 MG capsule Take 1 capsule (20 mg total) by mouth daily. 0 Active carbidopa-levodopa (SINEMET) 25-100 MG per tablet Take by mouth 3 (three) times a day. 0 Active furosemide (LASIX) 20 MG tablet Take 1 tablet (20 mg total) by mouth 2 (two) times a day. 0 Active glycopyrrolate (ROBINUL) 1 MG tablet Take 2 tablets (2 mg total) by mouth 4 (four) times a day. 0 Active Vitamin D, Ergocalciferol, 2000 units CAPS Take by mouth. 0 Active aspirin EC 81 MG tablet Take 1 tablet (81 mg total) by mouth daily. 0 Active Multiple Vitamins-Minerals (MULTI COMPLETE PO) Take by mouth. 0 A ctive B-COMPLEX-C PO Take by mouth. 0 Active Magnesium 400 MG TABS Take by mouth. 0 Active Flaxseed, Linseed, (FLAX SEED OIL) 1000 MG CAPS Take by mouth. 0 Active Calcium Citrate 200 MG TABS Take by mouth. 0 Active calcitRIOL (ROCALTROL) capsule 0.25 mcg Take 1 capsule (0.25 mcg total) by mouth daily. 0 Active levothyroxine (SYNTHROID, LEVOXYL) tablet 125 mcg Take 150 mcg by mouth every morning on an empty stomach. 0 Active senna-docusate (PERICOLACE) 8.6-50 MG Take 1 tablet by mouth daily. 30 tablet 0 08/28/2018 Active oxyCODONE (ROXICODONE) 5 MG immediate release tablet Take 1 tablet (5 mg total) by mouth every 4 (four) hours as needed for pain. 30 tablet 0 09/08/2018 Active oxyCODONE HCl ER (OXYCONTIN) 10 MG T12A controlled release tablet Take 1 tablet (10 mg total) by mouth every 12 (twelve) hours. 30 tablet 0 09/13/2018 Active naproxen sodium (ALEVE) 220 MG tablet Take 1 tablet (220 mg total) by mouth 2 (two) times a day with meals. 0 Active Tamsulosin HCl (FLOMAX PO) Take 0.8 mg by mouth. 0 Active levothyroxine (SYNTHROID) tablet 75 mcg Take 1 tablet (75 mcg total) by mouth 3 (three) times a day. Except for Sundays. 0 Active pramipexole (MIRAPEX) 0.25 MG tablet Take 1 tablet (0.25 mg total) by mouth 3 (three) times a day. 0 Active finasteride (PROSCAR) 5 MG tablet Take 1 tablet (5 mg total) by mouth daily. 0 Active calcium carbonate (Calcium 600) 600 MG tablet Take 1 tablet (600 mg total) by mouth 2 (two) times a day with meals. 0 Active melatonin 3 MG TABS tablet Take by mouth every night at bedtime. 0 Active Zinc 30 MG CAPS Take 30 mg by mouth 2 (two) times a day. 0 Active Magnesium Citrate 125 MG CAPS Take 250 mg by mouth daily. 0 Active Coenzyme Q10 (Co Q-10) 200 MG CAPS Take 1,200 mg by mouth daily. 0 Active Probiotic Product (PROBIOTIC DAILY PO) Take by mouth. 0 Active Lutein 40 MG CAPS Take by mouth. 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 His lungs are clear. He has had no shortness of breath. At this time there is no indication for diuretics. I did review his echocardiogram he has 2015. I did tell the patient that he started having shortness to call. I did tell him if he had any exertional symptoms, I described to call. I did tell him if he had a discomfort in his chest that lasted over 15 to 20 minutes to call 911. Chronic neuropathic pain 07/20/2021 Lytic lesion of bone on x-ray 06/09/2018 Social History Tobacco Use Types Packs/Day Years Used Date Smoking Tobacco: Never Assessed Tobacco Cessation:Counseling Given: Not Answered Sex and Gender Information Value Date Recorded Sex Assigned at Male 08/19/2022 10:03 AM EDT Gender Identity Not on file Sexual Orientation Not on file Job Start Date Occupation Industry Not on file Not on file Not on file Last Filed Vital Signs Vital Sign Reading Time Taken Comments Blood Pressure 147/61 01/09/2024 1:37 PM EDT Pulse 70 01/09/2024 1:37 PM EDT Temperature 36.6 C (97.8 F) 01/09/2024 1:37 PM EDT Respiratory Rate 18 08/24/2023 1:20 PM EDT Oxygen Saturation 98% 01/09/2024 1:37 PM EDT Inhaled Oxygen Concentration - - Weight 58.2 kg (128 lb 3.2 oz) 01/09/2024 1:37 P M EDT Height 172.7 cm (5' 8 ) 01/09/2024 1:37 PM EDT Body Mass Index 19.49 01/09/2024 1:37 PM EDT Plan of Treatment Health Maintenance Due Date Last Done Comments Depression Screening 1952 Preventative Health Evaluation 1958 Fall Risk Assessment 2005 RSV Adult > 60+ Yrs or (1 - 1-dose 75+ series) 06/04/2015 DTap / Tdap / Td (2 - Tdap) 09/12/2022 09/12/2012, 0 09/15/2010 COVID-19 Vaccine ( season) 2023 02/01/2023, 08/18/2021, 04/30/2020, Additional history exists Influenza Vaccine (#1) 2024 , 12/06/2019, 12/27/2018, Additional history exists Shingrix-Zoster Vaccine Completed 08/08/2019, 03/13 Pneumococcal Vaccine Completed 12/06/2019, 06/04/2014, 03/14/2006, Additional history exists Hepatitis B Vaccines Aged Out No long er eligible based on patient's age to complete this topic RSV Ped < 20 months Aged Out No longe r eligible based on patient's age to complete this topic Care Teams Electrical Equipment Tester Relationship Specialty Start Date End Date Felipa Dai MD [address] [place] [address] [address] [place] [address] PCP - General Internal Medicine 07/12/23
--- OUTSIDE RECORDS SUMMARY | 2024-10-19 15:52 | XMS_ITS | Encounter Summary ---
Author Organization [facility] Address [address] [place] [address] Care Team Providers Care Livestock Dealer Name Role Phone Felipa Dai MD Primary Care Provider [phone] Reason for Visit * Reason Onset Date Comments Leg Swelling 10/15/2024 Encounter Details Date Type Department Care Team (Late st Contact Info) Description 10/15/2024 Telephone Internal Medicine - [place] [address] [place] [phone] Felipa Dai MD [address] [place] [phone] Leg Swelling Social History Tobacco Use Types Packs/Day Years [...] AM EST documented as of this encounter Progress Notes * Hortenica Bal RN - 10/16/2024 8:56 AM EDT Pt CLARISSA with Dr. Dai on 07/12 - has a wound on the right leg, is following wound clinic, was given antibiotic during that appt with Dr. Dai Call to pt # [phone], spoke w/ him. Pt having swelling in the right hand and the right leg for the past several months, said it was present during his last visit with Dr. Dai - did also see a vascular doctor about this - was recommended to use compression stockings, Tubigrip - has been using those don't really help. At vascular the note says further vascular intervention was not needed. He is looking for further recommendation Then I see he has an appt with cardiology tomorrow. I tell him to bring up his concerns to cardiology and ask them about next steps, and reach back out if PCP needs to do anything further. He states understanding, says he will do this Has an appt with us next month as well * Alice Koehler RN - 10/15/2024 9:43 AM EDT Call to pt # [phone], left message to call back * Jennifer Spangler - 10/15/2024 9:23 AM EDT Pt called and requested a referral to a specialist because his right leg and right hand have been swollen for some time and would like to be checked out. Please advise Cb# [phone] documented in this encounter Plan of Treatment Upcoming Encounters Date Type Department Care Team (Late st Contact Info) Description 10/30/2024 11:45 AM EDT Office Visit [facility] Hematology Oncology [address] [place] [address] Trupti Gonzalez, DO [address] [place] [address] 11/30/2024 11:30 AM EDT Office Visit Internal Medicine - [place] [address] [facility] [address] [place] [address] Felipa Dai MD [address] [facility] [address] [place] [phone] 01/09/2025 11:30 AM EDT Office Visit [facility] Hematology Oncology [address] [place] [phone] Trupti Gonzalez DO [address] [place] [address] 02/22/2025 11:00 AM EST Appointment [facility] Infusion Center [address] [facility] [address] [place] [phone] 08/29/2025 11:30 AM EDT Office Visit Vascular Surgery - [place] [address] [place] [phone] Arleth Silveira MD [address] [facility] [address] [place] [address] documented as of this encounter Goals Goal Patient Goal Type Associated Problems Recent Progress Patient-Stated? Author Wound volume breakdown reduced by X% by week 4 Care Plan Impaired Tissue Charu Amador RN Wound volume breakdown reduced by X% by week 8 Care Plan Impaired Tissue No Charu Burks RN Wound volume breakdown reduced by X% by week 12 Care Plan Impaired Tissue Charu Amador RN Quit using tobacco (cigarettes, smokeless, etc) Care Plan Education needed on impact of smoking on wound Charu Amador RN Reduce tobacco use (cigarettes, smokeless, etc) Care Plan Education needed on impact of smoking on wound Charu Amador RN Decrease Wound Volume by X% by date (in notes) Care Plan Education needed on impact of smoking on wound Charu Amador RN Patient and Caregiver Understand Wound Care Education Care Plan Education needed related to ulceration/compr omised skin integrity. Charu Amador RN documented as of this encounter Visit Diagnoses Not on filedocumented in this encounter Additional Health Concerns Active Problems Noted Date Diagnosed Date Impaired Tissue 05/16/2024 Education needed on impact of smoking on wound 0 05/16/2024 Education needed related to ulceration/compromised skin integrity. 05/16/2024 documented as of this encounter Care Teams Livestock Dealer Relationship Specialty Start Date End Date Felipa Dai MD [address] [phone] PCP - General 07/12/23 documented as of this encounter
--- OUTSIDE RECORDS SUMMARY | 2024-10-19 15:52 | XMS_ITS | Clinical Summary ---
Author Organization [facility] Address [address] [place] [address] Care Team Providers Care Telephone Operator Name Role Phone Unavailable Primary Care Provider Unavailabl e Source Comments PLEASE NOTE, if this patient is a minor, it may be UNLAWFUL to discuss sensitive information that is contained in these records (such as FAMILY PLANNING, MENTAL HEALTH or SUBSTANCE ABUSE) with the minor patient's parent or other person without the patient's specific authorization.[facility] Social History Tobacco Use Types Packs/Day Years Used Date Smoking Tobacco: Never Assessed Social Connections Answer Date Recorded Connectedness 0 11/27/2023 Financial Resource Strain Answer Date R ecorded Financial Resource Strain 0 2023 Stress Answer Date Recorded Stress 0 07/26/2023 Physical Activity Answer Date Recorded Physical Activity 0 07/26/2023 Food Insecurity Answer Date Recorded Food 0 12/08/2023 Transportation Needs Answer Date Record ed Transportation 0 07/26/2023 Housing Stability Answer Date Recorded Housing 0 07/26/2023 Safety and Environment Answer Date Refugio rded Safety 0 07/26/2023 Utilities Answer Date Recorded Utilities 0 07/26/2023 Employment Answer Date Recorded Stress 0 11/27/2023 Sex and Gender Information Value Date Recorded Sex Assigned at Not on file Legal Sex Male 8:55 AM PDT Gender Identity Not on file Sexual Orientation Not on file Last Filed Vital Signs Vital Sign Reading Time Taken Comments Blood Pressure 179/95 07/30/2023 11:56 AM EDT Pulse 86 07/30/2023 11:56 AM EDT Temperature - - Respiratory Rate - - Oxygen Saturation - - Inhaled Oxygen Concentration - - Weight - - Height - - Body Mass Index - - Plan of Treatment Health Maintenance Due Date Last Done Comments Tobacco Screening 1940 Advanced Care Planning 1940 Falls Prevention 2005 Imm-Zoster, Recombinant (2 of 3) 01/25/2012 11/30/19 12 Imm-RSV (adult) (1 - 1-dose 75+ series) 06/04/2015 Imm-DTaP/Tdap/Td (2 - Tdap) 09/12/2022 09/12/2012, 0 09/15/2010 [id number] (2023- season) 2023 02/01/2023, 03/16/2022, 08/18/2021, Additional history exists Alcohol and Drug Screen 03/14/2024 Depression Annual Screen 03/14/2024 Hypertension Screening (#1) 07/29/2024 Imm-Influenza (#1) 2024 12/18/2021, 1 , 12/06/2019, Additional history exists Imm-Pneumococcal 50+ Completed 12/06/2019, 06/04/2014, 03/14/2006, Additional history exists
--- OUTSIDE RECORDS SUMMARY | 2024-10-19 15:52 | XMS_ITS | Continuity of Care Document ---
Author Organization [facility] [address] [place] [address] Phone [phone] Care Team Providers Care Cut Off Sawyer Name Role Phone Felipa Dai M.D. Care Team Information Receive r [phone] Problems Active Problems Provider Date Papillary thyroid carcinoma Ronal Harris Onset: 12/16/2021 Parkinson's disease Isacc Phoenix M.D. Onse t: 12/16/2021 Social History Type Date Description Comments Sex Male Sex Unknown Tobacco Use Start: Unknown Never Smoked Cigarettes ETOH Use Never used alcohol Allergies and adverse reactions Active Allergies Criticality Reaction Severity Comments Date Oxybutynin Unable to assess criticality 12/16/2021 Myrbetriq Unable to assess criticality 12/16/2021 Morphine Unable to assess criticality 12/16/2021 Medications Active Medications SIG Qnty Indications Ordering Provider Date Levothyroxine [id number] Tablets 1 tablet by mouth every morning 90tabs Isacc Phoenix M.D. 05/02/2024 Kcnvyaucrta8jg Tablets 1 by mouth every day 90tabs Isacc Phoenix M.D. 10/19/2022 Ncyczhqdnfgatm8rt Tablets take 3 tablets daily Isacc Phoenix M.D. Lyabpsifbim60dt Tablets 1 by mouth every day 90tabs Isacc Phoenix M.D. Pramipexole Dihydrochloride0.25mg Tablets take 0.5 tablets by mouth 3 times daily. Isacc Phoenix M.D. Teyhqdmsq-Ewmqsyly10-3 00mg Tablets 1 1/2 tab by mouth four times a day Isacc Phoenix M.D. Rhzhcnpgwy11px Capsules DR 1 by mouth every day Isacc Phoenix M.D. Lpswpwjuf3nv Capsules 1 every night at bedtime Isacc Phoenix M.D. Fqbbsat552hc Tablets take 1 tablet by mouth daily. Unknown History Medications Levothyroxine Qlbuzs154jeo Capsules 1 tablet by mouth every morning 90caps Isacc Phoenix M.D. 05/02/2024 - 05/02/2024 Levothyroxine Eofpgf197pzf Tablets 1 tablet by mouth every morning Isacc Phoenix M.D. 05/02/2024 - 05/02/2024 Levothyroxine Slbimi631jvt Tablets 1 tablet by mouth every morning Isacc Phoenix M.D. 05/02/2024 - 05/02/2024 Levothyroxine Kukwsk909nag Capsules 1 tablet by mouth every morning Isacc Phoenix M.D. 01/23/2024 - 01/23/2024 Levothyroxine Qrmqzd991vmd Tablets 1 tablet by mouth every morning 2 tablets on Tuesday 90tabs Isacc Phoenix M.D. 01/23/2024 - 05/02/2024 Vital Signs Date Vital Result Comment 09/26/2024 10:41am BP Systolic 130 mmHg BP Diastolic 80 mmHg Heart Rate 72 /min Height 65 inches 5'5 Weight 138.38 lb BMI (Body Mass Index) 23.0 kg/m2 Results Test Acquired Date Facility Test Result H/L Range Note Triiodothyronine (T3), Free 09/21/2024 [facility] Triiodothyronine (T3), Free 2.7 pg/mL 2.0-4.4 TSH 09/21/2024 [facility] TSH 2.310 uIU/mL 0.450-4 .500 Thyroxine (T4) Free, Direct 09/21/2024 [facility] Thyroxine (T4) Free, Direct 1.06 ng/dL 0.82-1. 77 TSH 08/02/2024 [facility] TSH 0.074 uIU/mL Low 0.450-4 .500 Triiodothyronine (T3), Free 08/02/2024 [facility] Triiodothyronine (T3), Free 3.6 pg/mL 2.0-4.4 Thyroxine (T4) Free, Direct 08/02/2024 [facility] Thyroxine (T4) Free, Direct 1.62 ng/dL 0.82-1. 77 TSH Rfx on Abnormal to Free T4 06/18/2024 [facility] TSH RFX On Abnormal To Free T4 0.164 uIU/mL Low 0.450-4 .500 T4,Free (Direct) 1.32 ng/dL 0.82-1. 77 TSH RFX On Abnormal To Free T4 05/02/2024 [facility] TSH RFX On Abnormal To Free T4 <pending > TSH+Free T4 04/30/2024 [facility] TSH 1.580 uIU/mL 0.450-4 .500 T4,Free(Direct) 1.26 ng/dL 0.82-1. 77 Triiodothyronine (T3), Free 04/30/2024 [facility] Triiodothyronine (T3), Free 2.4 pg/mL 2.0-4.4 Tgab+Thyroglobulin, Yancy Or LCMS 04/30/2024 [facility] Thyroglobulin Antibody <1.0 IU/mL 0.0-0.9 1 Thyroglobulin b y Yancy 3887.6 ng/mL High 1.4-29. 2 2 Triiodothyronine (T3), Free 03/23/2024 [facility] Triiodothyronine (T3), Free 2.4 pg/mL 2.0-4.4 Thyroxine (T4) Free, Direct 03/23/2024 [facility] Thyroxine (T4) Free, Direct 1.14 ng/dL 0.82-1. 77 TSH 03/23/2024 [facility] TSH 0.972 uIU/mL 0.450-4 .500 Tgab+Thyroglobulin, Yancy Or LCMS 03/23/2024 [facility] Thyroglobulin Antibody <1.0 IU/mL 0.0-0.9 3 Thyroglobulin b y Yancy 3454.6 ng/mL High 1.4-29. 2 4 Triiodothyronine (T3), Free 01/19/2024 [facility] Triiodothyronine (T3), Free 2.8 pg/mL 2.0-4.4 Tgab+Thyroglobulin, Yancy Or LCMS 01/19/2024 [facility] Thyroglobulin Antibody <1.0 IU/mL 0.0-0.9 5 Thyroglobulin b y Yancy 2685.5 ng/mL High 1.4-29. 2 6 TSH & Free T4 Dialysis 01/19/2024 [facility] TSH-Icma 0.02 uU/mL Low 7 TSH+Free T4 01/19/2024 [facility] TSH+Free T4 1.7 ng/dL 8 TSH+Free T4 10/21/2023 [facility] TSH 0.010 uIU/mL Low 0.450-4 .500 T4,Free(Direct) 1.36 ng/dL 0.82-1. 77 Triiodothyronine (T3), Free 10/21/2023 [facility] Triiodothyronine (T3), Free 3.0 pg/mL 2.0-4.4 Tgab+Thyroglobulin, Yancy Or LCMS 10/21/2023 [facility] Thyroglobulin Antibody <1.0 IU/mL 0.0-0.9 9 Thyroglobulin b y Yancy 2306.7 ng/mL High 1.4-29. 2 10 TSH Rfx on Abnormal to Free T4 09/16/2023 [facility] TSH RFX On Abnormal To Free T4 <0.005 uIU/mL Low 0.450-4 .500 T4,Free (Direct) 2.03 ng/dL High 0.82-1. 77 TSH RFX On Abnormal To Free T4 06/24/2023 [facility] TSH RFX On Abnormal To Free T4 <pending > Thyroxine (T4) Free, Direct 06/21/2023 [facility] Thyroxine (T4) Free, Direct 1.85 ng/dL High 0.82-1. 77 TSH reflex to T4F 06/21/2023 [facility] TSH reflex to T4F <0.005 uIU/mL Low 0.450-4 .500 TSH With Reflex To FT4 04/15/2023 [facility] TSH With Reflex To FT4 <0.01 uIU/mL Low (0.4-4. 2) Free T4 04/15/2023 [facility] Free T4 2.06 ng/dL High (0.70-1 .80) TSH With Reflex To FT4 12/31/2022 [facility] TSH With Reflex To FT4 <0.01 uIU/mL Low (0.4-4. 2) Free T4 12/31/2022 [facility] Free T4 2.15 ng/dL High (0.70-1 .80) TSH With Reflex To FT4 11/12/2022 [facility] TSH With Reflex To FT4 <pending > TSH With Reflex To FT4 11/09/2022 [facility] TSH With Reflex To FT4 <0.01 uIU/mL Low (0.4-4. 2) Free T4 11/09/2022 [facility] Free T4 2.82 ng/dL High (0.70-1 .80) Acetylcholine Receptor Blocking AB 09/20/2022 [facility] Acetylcholine Receptor Blocking AB <15 11 TSH With Reflex To FT4 09/16/2022 [facility] TSH With Reflex To FT4 <0.01 uIU/mL Low (0.4-4. 2) Thyroglobulin Reflex Immunoassay 09/16/2022 [facility] Thyroglobulin Reflex Immunoassay 1101.5 High 12 Thyroglobulin,Tumor MRKR W/RFLX 09/16/2022 [facility] Thyroglobulin,Tumo r MRKR W/RFLX <1.0 13 TSH With Reflex To FT4 02/08/2022 [facility] TSH With Reflex To FT4 0.02 uIU/mL Low (0.4-4. 2) Thyroglobulin,Tumor MRKR W/RFLX 02/08/2022 [facility] Thyroglobulin,Tumo r MRKR W/RFLX <1.0 14 Free T4 02/08/2022 [facility] Free T4 1.77 ng/dL (0.70-1 .80) Thyroglobulin Reflex Immunoassay 02/08/2022 [facility] Thyroglobulin Reflex Immunoassay 777.0 High 15 Free T4 12/03/2021 [facility] Free T4 1.16 ng/dL (0.70-1 .80) TSH 12/03/2021 [facility] TSH 0.17 uIU/mL Low (0.4-4. 2) Thyroglobulin,Tumor MRKR W/RFLX 12/03/2021 [facility] Thyroglobulin,Tumo r MRKR W/RFLX <1.0 16 Thyroglobulin Reflex Immunoassay 12/03/2021 [facility] Thyroglobulin Reflex Immunoassay 1003.6 High 17 1 Thyroglobulin Antibo dy measured by [employer] Methodology It should be noted that the presence of thyroglobulin antibodies may not be pathogenic nor diagnostic, especially at very low levels. The assay oil tanker captain has found that four percent of individuals without evidence of thyroid disease or autoimmunity will have positive TgAb levels up to 4 IU/mL. 2 Specimen was diluted in order to obtain results. Results were repeated. According to the National Academy of Clinical [employer]ochemistry, the reference interval for Thyroglobulin (TG) should be related to euthyroid patients and not for patients who underwent thyroidectomy. TG reference intervals for these patients depend on the residual mass of the thyroid tissue left after surgery. Establishing a post-operative baseline is recommended. The assay limit of quantitation is 0.1 ng/mL Thyroglobulin measured by [employer] Immunometric Assay 3 Thyroglobulin Antibo dy measured by David Elton Methodology It should be noted that the presence of thyroglobulin antibodies may not be pathogenic nor diagnostic, especially at very low levels. The assay oil tanker captain has found that four percent of individuals without evidence of thyroid disease or autoimmunity will have positive TgAb levels up to 4 IU/mL. 4 Specimen was diluted in order to obtain results. Results were repeated. According to the National [employer] of [employer], the reference interval for Thyroglobulin (TG) should be related to euthyroid patients and not for patients who underwent thyroidectomy. TG reference intervals for these patients depend on the residual mass of the thyroid tissue left after surgery. Establishing a post-operative baseline is recommended. The assay limit of quantitation is 0.1 ng/mL Thyroglobulin measured by [employer] Immunometric Assay 5 Thyroglobulin Antibo dy measured by [employer] Methodology It should be noted that the presence of thyroglobulin antibodies may not be pathogenic nor diagnostic, especially at very low levels. The assay oil tanker captain has found that four percent of individuals without evidence of thyroid disease or autoimmunity will have positive TgAb levels up to 4 IU/mL. 6 Specimen was diluted in order to obtain results. Results were repeated. According to the National [employer]ochemistry, the reference interval for Thyroglobulin (TG) should be related to euthyroid patients and not for patients who underwent thyroidectomy. TG reference intervals for these patients depend on the residual mass of the thyroid tissue left after surgery. Establishing a post-operative baseline is recommended. The assay limit of quantitation is 0.1 ng/mL Thyroglobulin measured by [employer] Stone[employer] Immunometric Assay 7 Reference Range: Non- Adult 0.450-4.500 8 This test was develo ped and its performance characteristics determined by [employer]. It has not been cleared or approved by the Food and Drug Administration. Reference Range: Pubertal Children and Adults: 0.8 - 1.7 9 Thyroglobulin Antibo dy measured by [employer] Methodology It should be noted that the presence of thyroglobulin antibodies may not be pathogenic nor diagnostic, especially at very low levels. The assay oil tanker captain has found that four percent of individuals without evidence of thyroid disease or autoimmunity will have positive TgAb levels up to 4 IU/mL. 10 Specimen was diluted in order to obtain results. Results were repeated. According to the National Academy of Clinical [employer]ochemistry, the reference interval for Thyroglobulin (TG) should be related to euthyroid patients and not for patients who underwent thyroidectomy. TG reference intervals for these patients depend on the residual mass of the thyroid tissue left after surgery. Establishing a post-operative baseline is recommended. The assay limit of quantitation is 0.1 ng/mL Thyroglobulin measured by [employer] Immunometric Assay 11 Reference range: <15 Unit: % Inhibition 12 Reference range: 1.4 to 29.2 Unit: ng/mL (NOTE) Specimen was diluted in order to obtain results. Results were repeated. According to the National Academy of [employer]ochemistry, the reference interval for Thyroglobulin (TG) should be related to euthyroid patients and not for patients who underwent thyroidectomy. TG reference intervals for these patients depend on the residual mass of the thyroid tissue left after surgery. Establishing a post-operative baseline is recommended. The assay limit of quantitation is 0.1 ng/mL Thyroglobulin measured by [employer] Immunometric Assay A duplicate report has been generated due to demographic updates. Test performed by [email or web address], [place] [address] 13 Reference range: 0.0 to 0.9 Unit: IU/mL (NOTE) Thyroglobulin Antibody measured by [employer] Elton Methodology Test performed by [email or web address], [facility] [place] [address] 14 Reference range: 0.0 to 0.9 Unit: IU/mL (NOTE) Thyroglobulin Antibody measured by [employer] Methodology Test performed by [email or web address], [address] [place] [address] [place] [address] 15 Reference range: 1.4 to 29.2 Unit: ng/mL (NOTE) Specimen was diluted in order to obtain results. Results were repeated. According to the National Academy of Clinical [employer]ochemistry, the reference interval for Thyroglobulin (TG) should be related to euthyroid patients and not for patients who underwent thyroidectomy. TG reference intervals for these patients depend on the residual mass of the thyroid tissue left after surgery. Establishing a post-operative baseline is recommended. The assay limit of quantitation is 0.1 ng/mL Thyroglobulin measured by [employer] Stone[employer] Immunometric Assay Test performed by [email or web address], [facility] [place] [address] 16 Reference range: 0.0 to 0.9 Unit: IU/mL (NOTE) Thyroglobulin Antibody measured by [employer] Methodology Test performed by [email or web address], [facility] [place] [address] 17 Reference range: 1.4 to 29.2 Unit: ng/mL (NOTE) Specimen was diluted in order to obtain results. Results were repeated. According to the National Academy of Clinical [employer]ochemistry, the reference interval for Thyroglobulin (TG) should be related to euthyroid patients and not for patients who underwent thyroidectomy. TG reference intervals for these patients depend on the residual mass of the thyroid tissue left after surgery. Establishing a post-operative baseline is recommended. The assay limit of quantitation is 0.1 ng/mL Thyroglobulin measured by [employer] Immunometric Assay Test performed by [email or web address], [address] [place] [id number] [employer] Description No Information Available Encounters Type Date Location Provider Dx Diagnosis Office Visit 09/26/2024 10:45a Main Office Isacc Phoenix M.D. C79.51 Secondary malignant neoplasm of bone Assessments Date Code Description Provider 09/26/2024 C79.51 Metastatic malignant neoplas m to bone Isacc Phoenix M.D. Plan of Treatment Future Appointment(s):* 04/03/2025 11:00 am - Isacc Phoenix M.D. 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
[2024-10-19 15:53] LABS: INTERNATIONAL NORM RATIO 1.1 (0.9-1.1); Prothrombin Time 12.6 SEC (10.9-12.4)
[2024-10-19 16:12] LABS: Troponin-I High Sensitivity 3.6 ng/L (<3.5-35.0)
[2024-10-19 17:48] VITALS: BP 181/80; PULSE 88; RESP 16; O2SAT 97
--- NOTE | 2024-10-19 18:02 | ED.FALL ---
HPI - Fall General Chief Complaint: Fall Stated Complaint: fall + headstrike, no loc, lac on head Time Seen by Provider: 10/19/24 17:04 Source: patient Mode of arrival: EMS Limitations: no limitations History of Present Illness ED Provider: HPI Narrative: Patient's history of Parkinson disease apparently was in the parking lot of [employer] tripped and fell hitting his left temporal area to the ground no loss of consciousness has some abrasions in the both knees no other injuries Related Data Home Medications ?Medication ?Instructions ?Recorded ?Confirmed aspirin 81 mg tablet,delayed 81 mg PO BEDTIME 11/24/23 11/24/23 release calcium carbonate 500 mg PO DAILY@1200 11/24/23 11/24/23 carbidopa 10 mg-levodopa 100 mg 1.5 tab PO QID 11/24/23 11/24/23 disintegrating tablet finasteride 5 mg tablet 5 mg PO DAILY 11/24/23 11/24/23 levothyroxine 75 mcg tablet 225 mcg PO MOTUWETH@0600 11/24/23 11/24/23 magnesium glycinate 100 mg (as 100 mg PO BID@0800,1700 11/24/23 11/24/23 glycinate) tablet melatonin 3 mg tablet 3 mg PO BEDTIME Insomnia 11/24/23 11/24/23 metoprolol tartrate 25 mg tablet 25 mg PO BID 11/24/23 11/24/23 omeprazole 20 mg tablet,delayed 20 mg PO BID@0630,1630 11/24/23 11/24/23 release pramipexole 0.25 mg tablet 0.75 mg PO BEDTIME 11/24/23 11/24/23 simvastatin 40 mg tablet 20 mg PO BEDTIME 11/24/23 11/24/23 Previous Rx's ?Medication ?Instructions ?Recorded lorazepam 2 mg tablet (Ativan) 2 mg PO BEDTIME PRN SOB / vocal 09/01/24 irritation #7 tabs Allergies Allergy/AdvReac Type Severity Reaction Status Date / Time mirabegron (From Myrbetriq) Allergy Severe rash Verified 10/19/24 15:18 Opioids - Morphine Analogues Allergy Intermediate rash Verified 10/19/24 15:18 oxybutynin Allergy Intermediate rash Verified 10/19/24 15:18 Review of Systems Review of Systems: Yes all other systems are reviewed and are negative PMFSH Past Medical History Medical History Dementia with behavioral disturbance Cholecystitis HLD (hyperlipidemia) HTN (hypertension) GERD (gastroesophageal reflux disease) Parkinsons Social History Social History Household Members: Spouse Housing: House Do you presently have visiting nurse or other home services: No Alcohol intake: never Patient Tobacco Use Status: Never used Tobacco Smoked in Last 30 Days: No e-Cigarette/Vaping Use: Never Used Use of substances other than those prescribed or required for medical reasons: No Advance Directives: No Advance Directives Information Provided: No service: Yes Physical Exam Vital Signs: Vital Signs: Last Vital Signs Temp 98.0 F 10/19/24 19:37 Pulse 88 10/19/24 19:37 Resp 16 10/19/24 19:37 BP 181/80 H 10/19/24 19:37 Pulse Ox 97 10/19/24 19:37 O2 Del Method Room Air 10/19/24 19:37 BMI result Body Mass Index 24.4 Appearance: Alert. Oriented X3. No acute distress. Eyes: PERRLA, No Nystagmus HEENT: Pharynx normal. Oral Mucosa moist 3 cm long laceration left temporal area Neck: Normal inspection. Neck supple. CVS: Normal heart rate and rhythm. Pulses normal. Respiratory: No respiratory distress. Equal air entry bilateral, no wheezing/rales/rhonchi Abdomen: Soft and nontender. Bowel sounds are present, no mass palpable, no CVA tenderness Skin: Skin warm and dry. Normal skin color. Normal skin turgor. Superficial abrasion bilateral kneecaps Extremities: No lower extremity edema. No calf tenderness stable hips good range of movement Neuro: Oriented X 3. No motor deficit. No sensory deficit.No cerebellar signs , cranial nerves II-XII intact Medications Administered Discontinued Medications Generic Name Dose Route Start Last Admin Trade Name Freq PRN Reason Stop Dose Admin Diphtheria/Tetanus/Acell Pertussis 0.5 ml 10/19/24 15:30 10/19/24 15:43 Diphth,Pertus(Acell),Tet Adult 0.5 Ml Syringe IM 10/19/24 15:31 0.5 ml .ONCE ONE Administration Procedures Laceration Laceration 1: Site: scalp Side (If applicable): left Size (cm): 3 Description: linear Depth: simple, single layer Skin layer closed with: other ([place] #6) Medical Decision Making Medical Decision Making [place] Narrative: Patient is status post mechanical fall with history of Parkinson disease with scalp laceration which was approximated using gabi patient ambulated in the ER no any other injuries Lab Data [place] Lab Attestation statement: I reviewed the patient's lab results. 10/19/24 15:40 Labs: Lab Results 10/19/24 Range/Units 15:40 WBC 5.4 (4.8-10.8) X10*3/uL RBC 3.96 L (4.60-5.80) X10*6/uL Hgb 11.3 L (14.0-18.0) g/dl Hct 32.9 L (42.0-52.0) % MCV 83.1 (80.0-98.0) fL MCH 28.5 (27.0-33.0) pg MCHC 34.3 (31.0-36.0) g/dl RDW 14.3 (11.0-16.0) % Plt Count 228 D (160-400) X10*3/uL MPV 9.5 (9.4-12.4) fL Immature Gran % (Auto) 0.4 (0.0-0.4) % Neut % (Auto) 70.9 (45-73) % Lymph % (Auto) 15.4 L (20-40) % [place] % (Auto) 10.7 (2-11) % Eos % (Auto) 2.0 (0-4) % Baso % (Auto) 0.6 (0-2) % Lymph # (Auto) 0.8 L (1.2-4.9) X10*3/uL [place] # (Auto) 0.6 (0.1-1.2) X10*3/uL Eos # (Auto) 0.1 (0.0-0.4) X10*3/uL Baso # (Auto) 0.0 (0.0-0.2) X10*3/uL Abs Immat Gran (auto) 0.02 (0.00-0.03) X10*3/uL Absolute Neuts (auto) 3.9 (2.0-8.3) x10*3/uL Absolute Nucleated RBC 0.000 (0.0-0.012) X10*3/uL Nucleated RBC % (auto) 0.0 (0.0-0.2) /100WBC PT 12.6 H (10.9-12.4) SEC INR 1.1 (0.9-1.1) Sodium Cancelled Potassium Cancelled Chloride Cancelled Carbon Dioxide Cancelled Anion Gap Cancelled BUN Cancelled Creatinine Cancelled Estim Creat Clear Calc Cancelled Estimated GFR Cancelled Random Glucose Cancelled Calcium Cancelled Magnesium Cancelled Total Bilirubin Cancelled AST Cancelled ALT Cancelled Alkaline Phosphatase Cancelled Troponin I High Sens 3.6 (<3.5-35.0) ng/L Total Protein Cancelled Albumin Cancelled Discharge Plan Discharge Clinical Impression: Head injury, Fall Patient Disposition: Home, Self-Care Instructions: Fall Prevention for Older Adults (ED), Head Injury (ED) Additional Instructions: Care and cautions as advised Staple removal in 7-10 days Local care of abrasions as advised Prescriptions: No Action melatonin 3 mg Tablet 3 mg PO BEDTIME aspirin 81 mg Tablet,Delayed Release (Dr/Ec) 81 mg PO BEDTIME simvastatin 40 mg Tablet 20 mg PO BEDTIME levothyroxine 75 mcg Tablet 225 mcg PO MOTUWETH@0600 pramipexole 0.25 mg Tablet 0.75 mg PO BEDTIME finasteride 5 mg Tablet 5 mg PO DAILY carbidopa-levodopa 10-100 mg Tablet,Disintegrating 1.5 tab PO QID omeprazole 20 mg Tablet,Delayed Release (Dr/Ec) 20 mg PO BID@0630,1630 calcium carbonate 500 mg calcium (1,250 mg) Tablet 500 mg PO DAILY@1200 metoprolol tartrate 25 mg tablet 25 mg PO BID magnesium glycinate 100 mg Tablet 100 mg PO BID@0800,1700 lorazepam [Ativan] 2 mg tablet 2 mg PO BEDTIME PRN (Reason: SOB / vocal irritation) Qty: 7 0RF Interventions: ED Discharge Assessment Last Done: 10/19/24 19:37 Discharge Date/Time: 10/19/24 19:44 Print Language: Unable To Collect
[2024-10-19 19:37] VITALS: BP 181/80; PULSE 88; RESP 16; TEMP 36.7; O2SAT 97
== END 2024-10-19 19:44 | disposition home or self-care (01) ==
PROVIDERS: Physician Assistant; Emergency Provider Internal Medicine
DX: S09.90XA Unspecified injury of head, initial encounter (principal); S80.212A Abrasion, left knee, initial encounter; S80.211A Abrasion, right knee, initial encounter; W01.0XXA Fall on same level from slipping, tripping and stumbling without subsequent striking against object, initial encounter; Y93.9 Activity, unspecified; Y92.9 Unspecified place or not applicable; Y99.9 Unspecified external cause status; Z23 Encounter for immunization
CPT/HCPCS: 36415; 70450; 72125; 84484; 85025; 85610; 90471; 90715; 93005; 99284; 99285

== ENCOUNTER → 2024-10-19 15:29 | Outpatient (BNV) | payer MEDICARE, OTHER, SELFPAY | PROVIDERS: Emergency Provider Emergency Medicine Emergency Medical Services; Visit Provider Radiology Diagnostic Radiology | DX: S09.90XA Unspecified injury of head, initial encounter (principal); M40.04 Postural kyphosis, thoracic region; M50.30 Other cervical disc degeneration, unspecified cervical region; W19.XXXA Unspecified fall, initial encounter | CPT/HCPCS: 70450; 72125 ==

== ENCOUNTER → 2024-10-19 15:29 | Outpatient (BNV) | payer MEDICARE, OTHER, SELFPAY | PROVIDERS: Emergency Provider Internal Medicine; Visit Provider Internal Medicine | DX: Z13.6 Encounter for screening for cardiovascular disorders (principal); W19.XXXA Unspecified fall, initial encounter | CPT/HCPCS: 93010 ==

== ENCOUNTER 2025-01-10 21:18 | Inpatient (IN) | payer MEDICARE, OTHER, SELFPAY ==
--- OUTSIDE RECORDS SUMMARY | 2023-11-30 07:00 | XMS_ITS ---
Author Organization [facility] Address [address] [place] [address] Care Team Providers Care Kiln Maintenance Name Role Phone Malaika MEYERS, Felipa Primary Care Provider UnavailRadha Rust [phone] Encounters Encounter Location Date Provider Diagnosis [facility] [address] [place] [address] 11/30/2023 Radha Schreiber Plan Of Treatment Next Appt Details Provider Name:Radha mann, 03/26/2025 11:30:00 AM, [address] [place], [address], Progress Notes * Simeon MAHONEYDOB:1940 (84 yo M)Acc No.[id number]:11/30/2023 Progress Note Patient: Simeon TYLER Provider: Srinivas Schreiber DPM :1940 A ge:83 Y S ex:Male Date:11/30/2023 Address:[address] [id number] Pcp:Felipa Dai MD Subjective: * Chief Complaints: [...] 0 11/30/2023 Generated for Minoo vallecillo/Kierra/Omayra on: 1 10:44 PM EDT
--- OUTSIDE RECORDS SUMMARY | 2024-01-09 13:14 | XMS_ITS | Encounter Summary ---
Author Organization [facility] [place] [address] Care Team Providers Care Fire Warden Name Role Phone Felipa Dai MD Primary Care Provider [phone] Encounter Details Date Type Department Care Team (Late st Contact Info) Description 01/09/2024 1:14 PM EDT Hospital Encounter TH HISTORIC ENCOUNTERS EASTERN CONVERSION ONLY Trupti Gonzalez, DO [address] [place] [address] Social History Tobacco Use Types Packs/Day Years Used Date Smoking Tobacco: Never Smokeless Tobacco: Never Alcohol Use Standard Drinks/Week Comments Never 0 (1 standard drink = 0.6 oz pur e alcohol) Sex and Gender Information Value Date Recorded Sex Assigned at Male 04/24/2024 10:06 AM EST Legal Sex Male 1:18 PM EST Gender Identity Male 04/24/2024 10:06 AM EST Sexual Orientation Straight 04/24/2024 10 :06 AM EST documented as of this encounter Last Filed Vital Signs Vital Sign Reading Time Taken Comments Blood Pressure 147/61 01/09/2024 1:37 PM EDT Sitting Right arm Pulse 70 01/09/2024 1:37 PM EDT Temperature - - Respiratory Rate - - Oxygen Saturation - - Inhaled Oxygen Concentration - - Weight 58.2 kg (128 lb 3.2 oz) 01/09/2024 1:37 PM EDT Height 172.7 cm (5' 8 ) 01/09/2024 1:37 PM EDT Body Mass Index 19.49 01/09/2024 1:37 PM EDT documented in this encounter Functional Status * Calculated C-SSRS Risk Score (Lifetime/Recent) Answer Date of Assessment Author No Risk Indicated 04/24/2024 10:05 AM Lyn Lott RN * [place] Suicide Severity Rating Scale (Screener/Recent Self-Report) Question Answer Date of Assessment Author 1. Wish to be (Past 1 Month) No 025 10:05 AM Lyn Lott RN 2. Non-Specific Active Suici santi Thoughts (Past 1 Month) No 04/24/2024 10:05 AM Jocelyne Lott RN 6. Suicidal Behavior (Lifetime) No 10:05 AM Lyn Lott RN documented as of this encounter Progress Notes * Trupti Gonzalez DO - 01/09/2024 1:30 PM EDT Images from the original note were not included. Progress Notes by Trupti Gonzalez DO at 01/09/2024 1:30 PM Author: Trupti Gonzalez DO Service: -- Author Type: Physician Filed: 01/10/2024 8:56 PM Encounter Date: 01/09/2024 Status: Signed Firmware Developer: Trupti Gonzalez DO (Physician) Hematology/Oncology Progress Note 01/09/24 Subjective Patient identifier: 83 year old male with metastatic papillary thyroid carcinoma Interim history: Patient presents today for follow up accompanied by his Overall patient is doing fair. Having ongoing issues with the neck stiffness and also dysphagia. Heis having a lot of drooling Denies any new pain in his hips or his back at all His appetite is fair in general. No dyspnea or coughing . No change to his bowels habits. Mostly ambulating with walker sometimes wheelchair but does fall a lot due to gait instability Constitutional: see above Resp/CV: No chest pain GI: No nausea, vomiting, diarrhea, abdominal pain, bloody stool Skin: No rashes Neuro: No headaches, dizziness, neuropathy Musculoskeletal: No bone pain, no joint pain. Hem/Lymph : No palpable lymph nodes, no bleeding or easy bruising Oncology history: the patient first presented in May 2018 with right hip pain. Found to have pelvic lesion and pathologic fracture, biopsy showed metastatic thyroid carcinoma. He then underwent IR cryoablation followed by sacroplasty in June 2018. He completed RT??to the right pelvis in August 2018. The patient then underwent total thyroidectomy and right central neck dissection at [facility]. Pathologyshowed right thyroid mass papillary thyroid carcinoma, Subsequent I-131 LEIVA on 10/18/18. Overall patient doing well no ongoing acute complaints Radiographic study 06/04/2021 1.4 cm dense lesion lateral segment left lobe of the liver finding is indeterminate consider MRI also reviewed prior CT scans as well as PET for similarity. ??No evidenceof retroperitoneal adenopathy lytic change right posterior acetabulum essentially stable. ??Developing poorly marginated nodular groundglass opacities superior segment right lower lobe further abnormality subcentimeter round lung lesions perhaps infectious or inflammatory Patient's Parkinson's is still quite symptomatic. Follow-up with [facility] now with Dr. Contreras PET/CT from 06/18/2021 no marked progression of disease with full report pending some increased activity along the area of the right hip.Patient seen in [place] by ??at [facility] decision made to continue with watchful waiting. ??He is asymptomatic primary difficulties are related to his Parkinson's disease, and it was felt that any further therapy at this point may jeopardize his quality of life Objective Last Vitals Vitals: 01/09/24 1337 BP: 147/61 Pulse: 70 Temp: 97.8 ??F (36.6 ??C) TempSrc: Temporal SpO2: 98% Weight: 58.2 kg (128 lb 3.2 oz) Height: 5' 8 (1.727 m) ECO-3 General: thin frail appearing elderly male HENT: neck contracted to the right. Dry mucous membrankes Resp: clear to auscultation bilaterally, Cardio: regular rate and rhythm, Abdomen: soft non tender, non distended Neuro: alert, in a wheelchair today. Medications Current Outpatient Medications: ? aspirin EC 81 MG tablet ? B-COMPLEX-C PO ? calcitRIOL (ROCALTROL) capsule 0.25 mcg ? calcium carbonate (Calcium 600) 600 MG tablet ? Calcium Citrate 200 MG TABS ? carbidopa-levodopa (SINEMET) 25-100 MG per tablet ? Coenzyme Q10 (Co Q-10) 200 MG CAPS ? doxazosin (CARDURA) 4 MG tablet ? finasteride (PROSCAR) 5 MG tablet ? Flaxseed, Linseed, (FLAX SEED OIL) 1000 MG CAPS ? furosemide (LASIX) 20 MG tablet ? glycopyrrolate (ROBINUL) 1 MG tablet ? levothyroxine (SYNTHROID) tablet 75 mcg ? levothyroxine (SYNTHROID, LEVOXYL) tablet 125 mcg ? lisinopril (PRINIVIL,ZESTRIL) tablet 5 mg ? Lutein 40 MG CAPS ? Magnesium 400 MG TABS ? Magnesium Citrate 125 MG CAPS ? melatonin 3 MG TABS tablet ? Multiple Vitamins-Minerals (MULTI COMPLETE PO) ? naproxen sodium (ALEVE) 220 MG tablet ? omeprazole (PriLOSEC) 20 MG capsule ? oxyCODONE (ROXICODONE) 5 MG immediate release tablet ? oxyCODONE HCl ER (OXYCONTIN) 10 MG T12A controlled release tablet ? pramipexole (MIRAPEX) 0.25 MG tablet ? Probiotic Product (PROBIOTIC DAILY PO) ? rOPINIRole (REQUIP) 1 MG tablet ? selegiline (ELDEPRYL) 5 MG tablet ? senna-docusate (PERICOLACE) 8.6-50 MG ? simvastatin (ZOCOR) 80 MG tablet ? Tamsulosin HCl (FLOMAX PO) ? Vitamin D, Ergocalciferol, 2000 units CAPS ? Zinc 30 MG CAPS No current facility-administered medications for this visit. Facility-Administered Medications Ordered in Other Visits: ? sodium chloride 0.9% (NS) infusion Allergies Allergies Allergen Reactions ? Fluorouracil Hives ? Gabapentin Other reaction(s): Nightmares ? Morphine ? Myrbetriq [Mirabegron] ? Oxybutynin ? Pregabalin Past medical history, past surgical history, and family history reviewed, and updated today. Medical history Past Medical History: Diagnosis Date ? CHF (congestive heart failure) (HCC) ? Hypertension ? Hypothyroidism ? Parkinson disease (HCC) Surgical history Past Surgical History: Procedure Laterality Date ? THYROID SURGERY Family history History reviewed. No pertinent family history. Social history He is lives with , lives in [place], he is retired DATA CAP 12/28/23 Assessment & Plan 83 year old male with history of parkinson's disease and metastatic thyroid cancer status post radiation therapy to multiple lesions, currently not on systemic treatment presents for follow up He does have overall very slowly over a year or two growing disease with millimeters of increase inthe lung nodules and slight increase in the bone lesions in the pelvis. He has already these areas radiated in the past. Thyroglobulin is rising in setting of growth of disease. Will continue with watchful waiting. Metastatic thyroid carcinoma Continue to monitor on surveillance No indication to initiate therapy especially given his borderline performance status , as agreed upon also by [facility] team in the past We did discuss referral to orthopedic oncology in regards to stabilizing the bones but they are notinterested in any surgery at this time which is very reasonable continue on zometa every 6 mo - next dose due in February Ordered ct scan in 6 months and next visit can even consider 12 months Continue with thyroid hormone suppression. Follow up here after the scan. Sign Jocelin Gonzalez DO - Hematology/Oncology [facility] CC: Felipa Dai MD documented in this encounter Plan of Treatment Upcoming Encounters Date Type Department Care Team (Late st Contact Info) Description 01/15/2025 10:00 AM EST Appointment [facility] CT Scan [address] [place] [phone] 01/23/2025 11:00 AM EST Office Visit [facility] Hematology Oncology [address] [place] [phone] Sheryl Chappell PA [address] [place] [address] 02/22/2025 11:00 AM EST Appointment [facility] Infusion Center [address] [facility] [address] [place] [phone] 03/21/2025 8:45 AM EST Office Visit Internal Medicine - [facility] [place] [address] [place] [phone] Felipa Dai MD [address] [place] [phone] 04/23/2025 1:30 PM EST Office Visit [facility] - [address] [place] [phone] Porfirio Malone MD [address] [place] [address] [address] [place] [phone] 08/29/2025 11:30 AM EDT Office Visit Vascular Surgery - [place] [facility] [address] [place] [phone] Arleth Silveira MD [address] [place] [phone] documented as of this encounter Procedures Procedure Name Priority Date/Time Associated Diagnosis Comments HISTORICAL IMAGING SCAN RESULT 01/09/2024 documented in this encounter Results * HISTORICAL IMAGING SCAN RESULT (01/09/2024) Anatomical Region Laterality Modality Ultrasound us Provider Onbase MD ALVAREZ US PROCEDURES Final Resul t documented in this encounter Visit Diagnoses Not on filedocumented in this encounter Care Teams Fire Warden Relationship Specialty Start Date End Date Felipa Dai MD [address] [place] [phone] PCP - General 07/12/23 documented as of this encounter
--- NOTE | ~2025-01-10 | CT_ITS ---
CLINICAL HISTORY: parkinsons multiple falls w head strikes CT head without contrast Comparison: CT/SR - CT HEAD WITHOUT IV CONTRAST - 10/19/2024 04:07 PM EDT Findings: No intra-axial mass, midline shift, hydrocephalus, or acute hemorrhage. There is moderate diffuse atrophy. The visualized paranasal sinuses and mastoid air cells are normal. The orbits are unremarkable. There is no acute fracture. IMPRESSION: 1. No acute intracranial findings. This document has been electronically signed by: Joseph Weinberg MD on 01/10/2025 22:59:21
--- NOTE | ~2025-01-10 | CT_ITS ---
CLINICAL HISTORY: multiple falls, poor hx, parkinsons CT cervical spine without contrast Comparison: None provided Findings: There is multiple level degenerative disc change. There is mild degree of upper cervical hyper lordotic curvature. No acute fractures or dislocations. Visualized intracranial contents are unremarkable. Soft tissues of the neck are normal. No consolidation or effusion at the lung apices. IMPRESSION: No acute findings. This document has been electronically signed by: Joseph Weinberg MD on 01/10/2025 22:55:03
--- NOTE | ~2025-01-10 | XR_ITS ---
CLINICAL HISTORY: fever Chest radiograph, 1 view Comparison: CR - XR CHEST 1V - 09/01/24 08:35 EDT Findings: The cardiomediastinal silhouette is not enlarged. Pulmonary vascularity is unremarkable. Airspace opacities are present within the right mid and lower lung zones. The right costophrenic angle is slightly blunted. The left lung is clear. No pneumothorax. Bilateral shoulder osteoarthritis. Superior subluxation of the right humerus is suggestive of chronic rotator cuff dysfunction. IMPRESSION: Right basilar airspace disease and possible small right pleural effusion. This document has been electronically signed by: Héctor Berry DO on 01/12/2025 10:35:51
--- NOTE | 2025-01-10 21:36 | ECG_ITS ---
Test Reason : FALL Blood Pressure : */* mmHG Vent. Rate : 92 BPM Atrial Rate : 92 BPM P-R Int : 178 ms QRS Dur : 96 ms QT Int : 380 ms P-R-T Axes : * 184 121 degrees QTcB Int : 469 ms Normal sinus rhythm Right superior axis deviation Nonspecific T wave abnormality Abnormal ECG When compared with ECG of 19-Oct-2024 15:39, QRS axis Shifted left Referred By: Karrie Wheat Electronically Signed By: TAY SELF
[2025-01-10 21:39] VITALS: BP 156/82; PULSE 86; O2SAT 97; BMI 19.5
[2025-01-10 21:47] VITALS: BP 126/49; PULSE 97; RESP 18; TEMP 36.9; O2SAT 97
--- NOTE | 2025-01-10 21:55 | HO.SKINPHOTO ---
Location: : Left side/left back Category: Stage: Length: Width: Depth: cm Location: L elbow Category: Stage: Length: Width: Depth: cm Location: Category: Stage: Length: Width: Depth: cm Location: Category: Stage: Length: Width: Depth: cm Location: Category: Stage: Length: Width: Depth: cm Location: left and right knee Category: Stage: Length: Width: Depth: cm
--- NOTE | 2025-01-10 21:59 | PC.NURSE ---
Pt BIBA post fall. Pt is on aspirin. not head strike or LOC per report. Pt has a hx of Parkinsons & throat CA. Orders placed by . RN changed pt into jessica. Pictures taken and uploaded in pts charts. Pt is AxOx2, uses walkers. Fall precautions in place. Bed at lowest level, call wong within reach, yellow socks on pt and on stretcher.
[2025-01-10 22:05] LABS: MANUAL DIFF FLAG NO
[2025-01-10 22:07] LABS: Hematocrit 37.4 % (42.0-52.0); Hemoglobin 12.0 g/dl (14.0-18.0); Imm Gran Abs Auto 0.01 X10*3/uL (0.00-0.03); Imm Gran Pct Auto 0.1 % (0.0-0.4); Lymphocytes Absolute Auto 0.8 X10*3/uL (1.2-4.9); Mean Corpuscular HGB Conc 32.1 g/dl (31.0-36.0); Mean Corpuscular Hemoglobin 27.5 pg (27.0-33.0); Mean Corpuscular Volume 85.6 fL (80.0-98.0); NRBC Abs Auto 0.000 X10*3/uL (0.0-0.012); NRBC Pct Auto 0.0 /100WBC (0.0-0.2); Platelet Count 274 X10*3/uL (160-400); Red Blood Count 4.37 X10*6/uL (4.60-5.80); White Blood Count 7.4 X10*3/uL (4.8-10.8)
[2025-01-10 22:23] LABS: Alanine Aminotransferase 26 U/L (0-40); Albumin Level 4.0 g/dL (3.5-5.0); Alkaline Phosphatase 94 U/L (39-117); Anion Gap 14 (12-20); Aspartate Amino Transferase 69 U/L (5-37); Blood Urea Nitrogen 29 mg/dL (9-16); Calcium 9.2 mg/dL (8.4-10.2); Carbon Dioxide 24 mmol/L (22-29); Chloride 109 mmol/L (96-108); Creatinine Clr Calc Pharmacy 59.5; Estimated Glomerular Filt Rate > 60; Magnesium 2.4 mg/dL (1.6-2.6); Potassium 3.9 mmol/L (3.3-5.1); Sodium 143 mmol/L (135-145); Total Protein 7.1 g/dL (6.5-8.0)
--- NOTE | 2025-01-10 22:24 | ED_ITS ---
HPI - Fall General Chief Complaint: Fall Stated Complaint: Fall no head strike, right shoulder pain Time Seen by Provider: 01/10/25 21:36 Source: EMS and RN notes reviewed Mode of arrival: EMS Limitations: other History of Present Illness ED Provider: Dr. Karrie Wheat HPI Narrative: Patient comes to the emergency room by ambulance. Patient is unable to give much history. According to EMS, the patient had 2 falls today. Earlier today, after the 1st fall, the patient refused transferred to the hospital. The 2nd time, patient's refused to have the patient brought to the emergency room. But the patient asked EMS to bring him. Patient denies any significant pain. However, it was noted by EMS that patient has bilateral knee abrasions. Per patient's request, they brought the patient to the emergency room. Patient's states that she does not want him to have any physical therapy evaluation, does not want him to go to rehab or to be placed. She stated that she wants him home. Related Data Home Medications ?Medication ?Instructions ?Recorded ?Confirmed aspirin 81 mg tablet,delayed 81 mg PO BEDTIME 11/24/23 01/11/25 release calcium carbonate 500 mg PO DAILY@1200 4 01/11/25 finasteride 5 mg tablet 5 mg PO DAILY 11/24/2301/11 melatonin 3 mg tablet 3 mg PO BEDTIME Insomnia 03/0601/11/25 omeprazole 20 mg tablet,delayed 20 mg PO BID@0630,1630 11/24/23 01/11/25 release pramipexole 0.25 mg tablet 0.75 mg PO BEDTIME 11/24/23 01/11/25 simvastatin 40 mg tablet 20 mg PO BEDTIME 11/24/23 carbidopa 25 mg-levodopa 100 mg 1.5 tab PO QID 5 01/11/25 tablet furosemide 20 mg tablet 20 mg PO DAILY 01/11/2512/14 levothyroxine 150 mcg tablet 150 mcg PO DAILY@0600 01/11/25 Allergies Allergy/AdvReac Type Severity Reaction Status Date / Time mirabegron (From Myrbetriq) Allergy Severe rash Verified 01/10/25 21:44 Opioids - Morphine Analogues Allergy Intermediate rash Verified 01/10/25 21:44 oxybutynin Allergy Intermediate rash Verified 01/10/25 21:44 Review of Systems 2 Review of Systems: Yes Other (Unable to give much history) [facility] Past Medical History Medical History Dementia with behavioral disturbance Cholecystitis HLD (hyperlipidemia) HTN (hypertension) GERD (gastroesophageal reflux disease) Parkinsons Social History Social History Household Members: Spouse Housing: House Do you presently have visiting nurse or other home services: No Alcohol intake: never Patient Tobacco Use Status: Never used Tobacco Smoked in Last 30 Days: No e-Cigarette/Vaping Use: Never Used Use of substances other than those prescribed or required for medical reasons: No Advance Directives: Yes Advance Directives Information Provided: Yes Advance Directives on File: No Do you have a plan to hurt others: No Plan service: Yes Physical Exam 2 Exam: Exam: Appearance: Alert. Awake, does not seem to be in acute distress Eyes: Pupils equal, round and reactive to light. ENT: Pharynx normal. Neck: Normal inspection. Neck supple. No lymph nodes noted. No crepitus CVS: Normal heart rate and rhythm. Pulses normal. Normal S1 and S2 Respiratory: No respiratory distress. Breath sounds normal. No Wheezing. No rales Abdomen: Soft and nontender. No rigidity. No distention. Skin: Skin warm and dry. Normal skin color. Normal skin turgor. Extremities: No lower extremity edema. No Lacerations. No Rash Neuro: Awake, does move all extremities, unable to participate in CN assessment Psych: calm Vital Signs: Vital Signs: Last Vital Signs Temp 97.7 F 01/12/25 09:46 Pulse 85 01/12/25 14:03 Resp 20 01/12/25 14:03 BP 98/56 L 01/12/25 14:03 Pulse Ox 95 01/12/25 14:03 O2 Del Method Room Air 01/12/25 14:03 BMI result Body Mass Index 19.5 Course Course Course Narrative: We will obtain basic labs and imaging Reevaluation(s) Reevaluation #1: Time: 08:47 Date: 01/11/25 Provider: Loyda Harper PA-C Patient in physician observation for case management needs, placed yesterday. No acute events reported overnight.? No current issues or complaints. VS stable. Patient is pending PT/CM eval secondary to fall risk. Will continue to monitor. Reevaluation #2: 1020-I was alerted by nursing that patient was febrile and received APAP with improvement. I will obtain labs, COVID testing, UA, CXR. Reevaluation #3: 1100-chest x-ray shows right-sided pneumonia. Patient has history of aspiration pneumonia. Patient has history of Parkinson's disease and dementia and is altered. Oxygen saturation is stable at this time. He has a leukocytosis, hypernatremia. At this time infection is suspected. Blood cultures and lactic acid were ordered. Antibiotics were ordered. Fluids were ordered. Medicine team messaged for admission. Medications Administered Generic Name Dose Route Start Last Admin Trade Name Freq PRN Reason Stop Dose Admin Aspirin 81 mg 01/11/25 21:00 01/11/25 21:28 Aspirin Enteric Coated 81 Mg Tablet.Dr PO 81 mg BEDTIME RAYMOND Administration Atorvastatin Calcium 10 mg 01/11/25 21:00 01/11/25 21:33 Atorvastatin Calcium 10 Mg Tablet PO 10 mg BEDTIME RAYMOND Administration Carbidopa/Levodopa 1.5 tab 01/11/25 17:00 01/12/25 13:15 Carbidopa/Levodopa 25/100 Tablet PO 1.5 tab QID RAYMOND Administration Finasteride 5 mg 01/11/25 14:30 01/12/25 08:35 Finasteride 5 Mg Tablet PO 5 mg DAILY RAYMOND Administration Heparin Sodium (Porcine) 5,000 unit 01/12/25 13:30 01/12/25 14:01 Heparin Sodium,Porcine 5,000 Unit/Ml Vial SUBCUT 5,000 unit Q12H RAYMOND Administration Azithromycin 500 mg/ Sodium 250 mls @ 125 mls/hr 01/12/25 13:30 01/12/25 14:00 Chloride IV 125 mls/hr Q24H RAYMOND Administration Lactated Ringer's 1,000 mls @ 80 mls/hr 01/12/25 14:30 01/12/25 14:39 Lr IVCONT 80 mls/hr .[id number] RAYMOND Administration Levothyroxine Sodium 150 mcg 01/11/25 16:00 01/12/25 06:45 Levothyroxine Sodium 150 Mcg Tablet PO 150 mcg DAILY@0600 RAYMOND Administration Melatonin 3 mg 01/11/25 21:00 01/11/25 21:33 Melatonin 3 Mg Tablet PO 3 mg BEDTIME RAYMOND Administration Omeprazole 20 mg 01/11/25 16:30 01/12/25 06:45 Omeprazole 20 Mg Capsule. PO 20 mg BID@0630,1630 RAYMOND Administration Pramipexole Dihydrochloride 0.75 mg 01/11/25 21:00 01/11/25 21:28 Pramipexole Di-Hcl 0.25 Mg Tablet PO 0.75 mg BEDTIME RAYMOND Administration Discontinued Medications Generic Name Dose Route Start Last Admin Trade Name Robertoq PRN Reason Stop Dose Admin Acetaminophen 975 mg 01/12/25 07:14 01/12/25 08:34 Acetaminophen 325 Mg Tablet PO 01/12/25 07:15 975 mg ONCE ONE Administration Cefepime HCl 2 gm in 50 mls @ 100 mls/hr 01/12/25 10:58 01/12/25 11:47 Maxipime IV 01/12/25 11:27 Infused ONCE ONE Infusion Sodium Chloride 1,000 mls @ 999 mls/hr 01/12/25 11:02 01/12/25 13:45 Ns IV 01/12/25 12:02 Infused .Q1H1M STA Infusion Medical Decision Making Medical Decision Making [facility] Narrative: My interpretation of labs: No significant abnormality in patient's hematology and chemistry, urinalysis negative for UTI, urine toxicology and ETOH negative. Serology negative for influenza and COVID CT scan of the head and spine did not show any significant acute abnormality As mentioned per EMS, seems that the patient and the patient's do not want him to go to any short-term rehab. The patient can barely stand up. We tried contacting several times the to rechecked if she wants at least an evaluation for further recommendations or more assistance at home. 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 Patient will remain in the emergency room until the morning. We will try calling the patient's again. And if needed we will get a PT/case management consult depending on patient's 's wishes We were able to talk to the patient's this morning. Patient will be coming to talk with her and they are open to get a PT case management consult. They are not sure yet if they will actually agree to short-term rehab PT and case management consult pending Differential Diagnosis Differential Diagnoses: The differential diagnosis associated with the presentation includes (Parkinson's, recurrent falls, intracranial bleed, UTI) Admission/Observation Consideration of admission/observation: Escalation of care including admission/observation considered (Patient is under physician observation, we are waiting for the patient's to call us back for final disposition) Lab Data MDM Lab Attestation statement: I reviewed the patient's lab results. 01/12/25 10:20 01/12/25 10:20 Labs: Lab Results 01/10/25 01/10/25 01/12/25 Range/Units 21:58 23:28 10:08 WBC 7.4 (4.8-10.8) X10*3/uL RBC 4.37 L (4.60-5.80) X10*6/uL Hgb 12.0 L (14.0-18.0) g/dl Hct 37.4 L (42.0-52.0) % MCV 85.6 (80.0-98.0) fL MCH 27.5 (27.0-33.0) pg MCHC 32.1 (31.0-36.0) g/dl RDW 14.1 (11.0-16.0) % Plt Count 274 (160-400) X10*3/uL MPV 9.2 L (9.4-12.4) fL Immature Gran % (Auto) 0.1 (0.0-0.4) % Neut % (Auto) 78.1 H (45-73) % Lymph % (Auto) 10.5 L (20-40) % [place] % (Auto) 10.2 (2-11) % Eos % (Auto) 0.7 (0-4) % Baso % (Auto) 0.4 (0-2) % Lymph # (Auto) 0.8 L (1.2-4.9) X10*3/uL [place] # (Auto) 0.8 (0.1-1.2) X10*3/uL Eos # (Auto) 0.1 (0.0-0.4) X10*3/uL Baso # (Auto) 0.0 (0.0-0.2) X10*3/uL Abs Immat Gran (auto) 0.01 (0.00-0.03) X10*3/uL Absolute Neuts (auto) 5.8 (2.0-8.3) x10*3/uL Absolute Nucleated RBC 0.000 (0.0-0.012) X10*3/uL Nucleated RBC % (auto) 0.0 (0.0-0.2) /100WBC Sodium 143 (135-145) mmol/L Potassium 3.9 (3.3-5.1) mmol/L Chloride 109 H (96-108) mmol/L Carbon Dioxide 24 (22-29) mmol/L Anion Gap 14 (12-20) BUN 29 H (9-16) mg/dL Creatinine 0.83 (0.5-1.4) mg/dL Estim Creat Clear Calc 59.5 Estimated GFR > 60 Random Glucose 91 (60-115) mg/dL Lactic Acid (0.5-2.0) mmol/L Calcium 9.2 (8.4-10.2) mg/dL Magnesium 2.4 (1.6-2.6) mg/dL Total Bilirubin 1.0 (0.0-1.0) mg/dL Direct Bilirubin 0.3 (0.0-0.5) mg/dL AST 69 H (5-37) U/L ALT 26 (0-40) U/L Alkaline Phosphatase 94 (39-117) U/L Total Creatine Kinase 1626 H (38-174) U/L Troponin I High Sens 14.6 D (<3.5-35.0) ng/L Total Protein 7.1 (6.5-8.0) g/dL Albumin 4.0 (3.5-5.0) g/dL Urine Color Dark Yellow Urine Appearance Clear Urine pH 5.5 (5.0-9.0) Ur Specific [place] 1.025 (1.005-1.025) Urine Protein Trace (Neg-Trace) mg/dL Urine Glucose (UA) Negative (Negative) mg/dL Urine Ketones 15 (Negative) mg/dL Urine Blood Negative (Negative) Urine Nitrite Negative (Negative) Ur Leukocyte Esterase Trace H (Negative) Urine RBC 0-2 (0-2) /HPF Urine WBC 0-5 (0-5) /HPF Ur Squamous Epith Cells 0-2 (0-2) /HPF Urine Bacteria None Seen (None Seen) Hyaline Casts 0-2 (0-2) /LPF Urine Opiates Screen Not Detected (Not Detect) Ur Buprenorphine Scrn Not Detected (Not Detect) ng/mL Ur Oxycodone Screen Not Detected (Not Detect) ng/mL Urine Methadone Screen Not Detected (Not Detect) ng/mL Urine Fentanyl Screen Not Detected (Not Detect) Ur Barbiturates Screen Not Detected (Not Detect) Ur Phencyclidine Scrn Not Detected (Not Detect) Ur Amphetamines Screen Not Detected (Not Detect) U Benzodiazepines Scrn Not Detected (Not Detect) Urine Cocaine Screen Not Detected (Not Detect) U Marijuana (THC) Screen Not Detected (Not Detect) Ethyl Alcohol < 10 mg/dL COVID-19 (LARISA) Negative Negative (Negative) COVID-19 Clin Com See Note See Note Influenza Type A (MAUREEN) Negative (Negative) Influenza Type B (MAUREEN) Negative (Negative) Influenza A & B Note See Note 01/12/25 Range/Units 10:20 WBC 11.9 H (4.8-10.8) X10*3/uL RBC 4.48 L (4.60-5.80) X10*6/uL Hgb 12.3 L (14.0-18.0) g/dl Hct 38.6 L (42.0-52.0) % MCV 86.2 (80.0-98.0) fL MCH 27.5 (27.0-33.0) pg MCHC 31.9 (31.0-36.0) g/dl RDW 14.6 (11.0-16.0) % Plt Count 298 (160-400) X10*3/uL MPV 9.6 (9.4-12.4) fL Immature Gran % (Auto) 0.4 (0.0-0.4) % Neut % (Auto) 83.8 H (45-73) % Lymph % (Auto) 6.3 L (20-40) % [place] % (Auto) 9.1 (2-11) % Eos % (Auto) 0.1 (0-4) % Baso % (Auto) 0.3 (0-2) % Lymph # (Auto) 0.8 L (1.2-4.9) X10*3/uL [place] # (Auto) 1.1 (0.1-1.2) X10*3/uL Eos # (Auto) 0.0 (0.0-0.4) X10*3/uL Baso # (Auto) 0.0 (0.0-0.2) X10*3/uL Abs Immat Gran (auto) 0.05 H (0.00-0.03) X10*3/uL Absolute Neuts (auto) 10.0 H (2.0-8.3) x10*3/uL Absolute Nucleated RBC 0.000 (0.0-0.012) X10*3/uL Nucleated RBC % (auto) 0.0 (0.0-0.2) /100WBC Sodium 146 H (135-145) mmol/L Potassium 4.3 (3.3-5.1) mmol/L Chloride 110 H (96-108) mmol/L Carbon Dioxide 27 (22-29) mmol/L Anion Gap 13 (12-20) BUN 20 H (9-16) mg/dL Creatinine 0.77 (0.5-1.4) mg/dL Estim Creat Clear Calc 64.1 Estimated GFR > 60 Random Glucose 110 (60-115) mg/dL Lactic Acid 1.7 (0.5-2.0) mmol/L Calcium 9.0 (8.4-10.2) mg/dL Magnesium (1.6-2.6) mg/dL Total Bilirubin 0.7 (0.0-1.0) mg/dL Direct Bilirubin 0.3 (0.0-0.5) mg/dL AST 47 H (5-37) U/L ALT < 6 (0-40) U/L Alkaline Phosphatase 93 (39-117) U/L Total Creatine Kinase (38-174) U/L Troponin I High Sens (<3.5-35.0) ng/L Total Protein 6.6 (6.5-8.0) g/dL Albumin 3.8 (3.5-5.0) g/dL Urine Color Urine Appearance Urine pH (5.0-9.0) Ur Specific [place] (1.005-1.025) Urine Protein (Neg-Trace) mg/dL Urine Glucose (UA) (Negative) mg/dL Urine Ketones (Negative) mg/dL Urine Blood (Negative) Urine Nitrite (Negative) Ur Leukocyte Esterase (Negative) Urine RBC (0-2) /HPF Urine WBC (0-5) /HPF Ur Squamous Epith Cells (0-2) /HPF Urine Bacteria (None Seen) Hyaline Casts (0-2) /LPF Urine Opiates Screen (Not Detect) Ur Buprenorphine Scrn (Not Detect) ng/mL Ur Oxycodone Screen (Not Detect) ng/mL Urine Methadone Screen (Not Detect) ng/mL Urine Fentanyl Screen (Not Detect) Ur Barbiturates Screen (Not Detect) Ur Phencyclidine Scrn (Not Detect) Ur Amphetamines Screen (Not Detect) U Benzodiazepines Scrn (Not Detect) Urine Cocaine Screen (Not Detect) U Marijuana (THC) Screen (Not Detect) Ethyl Alcohol mg/dL COVID-19 (LARISA) (Negative) COVID-19 Clin Com Influenza Type A (MAUREEN) (Negative) Influenza Type B (MAUREEN) (Negative) Influenza A & B Note ABG Data Attestation ABG: I personally reviewed and interpreted this ABG as follows: Independent Interpretation I performed an independent interpretation of an: CT Scan Radiology Impression Discussion of test interpretation with radiology: I have reviewed the radiologist's reading. Radiologist Impression: No intra-axial mass, midline shift, hydrocephalus, or acute hemorrhage. There is moderate diffuse atrophy. The visualized paranasal sinuses and mastoid air cells are normal. The orbits are unremarkable. There is no acute fracture. There is multiple level degenerative disc change. There is mild degree of upper cervical hyper lordotic curvature. No acute fractures or dislocations. Visualized intracranial contents are unremarkable. Soft tissues of the neck are normal. No consolidation or effusion at the lung apices. Critical Care Time Critical Care Time Critical Care Time: Yes Total Critical Care Time: 35 Attestation: I have personally provided critical care time. Time includes review of lab data, radiology results, discussion with consultants, and monitoring for potential decompensation. Intervention performed as documented. Discharge Plan Discharge Clinical Impression: Multiple falls, Pneumonia Patient Disposition: Admitted As Inpatient
[2025-01-10 22:27] LABS: IDNOW Serial# 08D9AD1C; Influenza B2 Negative (Negative)
[2025-01-10 22:28] LABS: COVID-19 Test Negative (Negative); IDNOW Serial# 6674DD1D
[2025-01-10 22:30] LABS: Troponin-I High Sensitivity 14.6 ng/L (<3.5-35.0)
--- OUTSIDE RECORDS SUMMARY | 2025-01-10 22:44 | XMS_ITS ---
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 Treatments may have been administered in another system.
--- OUTSIDE RECORDS SUMMARY | 2025-01-10 22:44 | XMS_ITS | Encounter Summary ---
Author Organization [facility] Address [address] [place] [id number] Phone Care Team Providers Care Cardiac/Vascular Sonographer Name Role Phone Joann Lebron MD Primary Care Provider Yaakov Cuenca MD Unavailable Vicente Simons MD Unavailable [phone] Anjel Maldonado MD Unavailable [phone] Yahir Rodrigues MD Unavailable [phone] Kanika Carver MD Unavailable [phone] Cristiana Clement MD Unavailable Goyo Lyle MD Unavailable [phone] Isacc Phoenix MD Unavailable [phone] Trupti Gonzalez DO Unavailable Encounter Details Date Type Department Care Team (Late st Contact Info) Description 09/07/2018 Procedure Pass DF IMG OUTSIDE IMG [address] [place], [place] [id number] Social History Tobacco Use Types Packs/Day Years Used Date Smoking Tobacco: Never Smokeless Tobacco: Never Alcohol Use Standard Drinks/Week Comments Never 0 (1 standard drink = 0.6 oz pur e alcohol) Sex and Gender Information Value Date Recorded Sex Assigned at Male 09/01/2019 1:32 PM EDT Legal Sex Male 10:12 PM EDT Gender Identity Male 09/01/2019 1:32 PM EDT Sexual Orientation Straight 09/01/2019 1: 33 PM EDT documented as of this encounter Plan of Treatment Not on file documented as of this encounter Visit Diagnoses Not on filedocumented in this encounter Care Teams Cardiac/Vascular Sonographer Relationship Specialty Start Date End Date Joann Lebron MD PCP - General Internal Medicine 07/24/18 Yaakov Cuenca MD [address] [place] [id number] [email or web address] Referring Physician Internal Medicine 07/24/18 Vicente Simons MD [address] [place] [id number] Neurosurgeon Psychiatry 07/31/18 Anjel Maldonado MD [address] [place] [address] Neurosurgeon Neurology 07/31/18 Yahir Rodrigues MD [address] [place] [address] Assistant Manager Pt Endocrinology 08/31/18 07/19/21 Kanika Carver MD [address] [place] [address] [email or web address] Primary Oncologist Medical Oncology 09/07/18 07/16/21 Cristiana Clement MD [address] [place] [id number] [email or web address] Radiation Oncology 09/07/18 Goyo Lyle MD [address] [place] [address], MRB [address] [place] [address] [email or web address] Primary Oncologist Medical Oncology 07/17/21 Isacc Phoenix MD [address] [place] [address] Dr GRAY [address] [place] [id number] Assistant Manager Pt Endocrinology 07/20/21 Trupti Gonzalez DO [address] [place] [id number] Primary Oncologist Internal Medicine 07/19/22 documented as of this encounter Additional Source Comments The information contained in this document represents components of the legal health record. It is not the complete legal health record.[facility]
--- OUTSIDE RECORDS SUMMARY | 2025-01-10 22:44 | XMS_ITS | Continuity of Care Document ---
Author Organization [facility] [address] [facility] [address] [place] [address] Phone [phone] Care Team Providers Care Under Cutting Machine Operator Name Role Phone Felipa Dai M.D. Care Team Information Receive r [phone] Problems Active Problems Provider Date Papillary thyroid carcinoma Ronal Harris Onset: 12/16/2021 Parkinson's disease sIacc Phoenix M.D. Onse t: 12/16/2021 Social History [...] SIG Qnty Indications Ordering Provider Date Levothyroxine [id number] Tablets 1 tablet by mouth every morning 90tabs Isacc Phoenix M.D. 05/02/2024 Pfxtuizcszu3ik Tablets 1 by mouth every day 90tabs Isacc Phoenix M.D. 10/19/2022 Yamqeujwsisgdj7vf Tablets take 3 tablets daily Isacc Phoenix M.D. Pkpdgzhfgbv63eo Tablets 1 by mouth every day 90tabs Isacc Phoenix M.D. Pramipexole Dihydrochloride0.25mg Tablets take 0.5 tablets by mouth 3 times daily. Isacc Phoenix M.D. Ohhtubxyn-Bnbkyvql22-5 00mg Tablets 1 1/2 tab by mouth four times a day Isacc Phoenix M.D. Umbvtceaxt28fx Capsules DR 1 by mouth every day Isacc Phoenix M.D. Yrevxjmkt8yg Capsules 1 every night at bedtime Isacc Phoenix M.D. Ewvbdib886xa Tablets take 1 tablet by mouth daily. Unknown History Medications Levothyroxine Pucfex716piy Capsules 1 tablet by mouth every morning 90caps Isacc Phoenix M.D. 05/02/2024 - 05/02/2024 Levothyroxine Rxupji851mju Tablets 1 tablet by mouth every morning Isacc Phoenix M.D. 05/02/2024 - 05/02/2024 Levothyroxine Hctgjj012hlu Tablets 1 tablet by mouth every morning Isacc Phoenix M.D. 05/02/2024 - 05/02/2024 Levothyroxine Jahtny462kxr Capsules 1 tablet by mouth every morning Isacc Phoenix M.D. 01/23/2024 - 01/23/2024 Levothyroxine Kzpllp144rfm Tablets 1 tablet by mouth every morning 2 tablets on Tuesday 90tabs Isacc Phoenix M.D. 01/23/2024 - 05/02/2024 Vital Signs Date Vital Result Comment 09/26/2024 10:41am BP Systolic 130 mmHg BP Diastolic 80 mmHg Heart Rate 72 /min Height 65 inches 5'5 Weight 138.38 lb BMI (Body Mass Index) 23.0 kg/m2 Results Test Acquired Date Facility Test Result H/L Range Note TSH 11/21/2024 [facility] TSH 0.012 uIU/mL Low 0.450-4 .500 Triiodothyronine (T3), Free 11/21/2024 [facility] Triiodothyronine (T3), Free 3.6 pg/mL 2.0-4.4 Thyroxine (T4) Free, Direct 11/21/2024 [facility] Thyroxine (T4) Free, Direct 1.68 ng/dL 0.82-1. 77 TSH+Free T4 11/09/2024 [facility] TSH 0.013 uIU/mL Low 0.450-4 .500 T4,Free(Direct) 1.73 ng/dL 0.82-1. 77 TSH 09/21/2024 [facility] TSH 2.310 uIU/mL 0.450-4 .500 Triiodothyronine (T3), Free 09/21/2024 [facility] Triiodothyronine (T3), Free 2.7 pg/mL 2.0-4.4 Thyroxine (T4) Free, Direct 09/21/2024 [facility] Thyroxine [...] On Abnormal To Free T4 <pending > Tgab+Thyroglobulin, Yancy Or LCMS 04/30/2024 [facility] Thyroglobulin Antibody <1.0 IU/mL 0.0-0.9 1 Thyroglobulin b y Yancy 3887.6 ng/mL High 1.4-29. 2 2 Triiodothyronine (T3), Free 04/30/2024 [facility] Triiodothyronine (T3), Free 2.4 pg/mL 2.0-4.4 TSH+Free T4 04/30/2024 [facility] TSH 1.580 uIU/mL 0.450-4 .500 T4,Free(Direct) 1.26 ng/dL 0.82-1. 77 Tgab+Thyroglobulin, Yancy Or LCMS 03/23/2024 [facility] Thyroglobulin Antibody <1.0 IU/mL 0.0-0.9 3 Thyroglobulin b y Yancy 3454.6 ng/mL High 1.4-29. 2 4 TSH 03/23/2024 [facility] TSH 0.972 uIU/mL 0.450-4 .500 Triiodothyronine (T3), Free 03/23/2024 [facility] Triiodothyronine (T3), Free 2.4 pg/mL 2.0-4.4 Thyroxine (T4) Free, Direct 03/23/2024 [facility] Thyroxine (T4) Free, Direct 1.14 ng/dL 0.82-1. 77 Triiodothyronine (T3), Free 01/19/2024 [facility] Triiodothyronine (T3), Free 2.8 pg/mL 2.0-4.4 Tgab+Thyroglobulin, Yancy Or LCMS 01/19/2024 [facility] Thyroglobulin Antibody <1.0 IU/mL 0.0-0.9 5 Thyroglobulin b y Yancy 2685.5 ng/mL High 1.4-29. 2 6 TSH & Free T4 Dialysis 01/19/2024 [facility] TSH-Icma 0.02 uU/mL Low 7 TSH+Free T4 01/19/2024 [facility] TSH+Free T4 1.7 ng/dL 8 Tgab+Thyroglobulin, Yancy Or LCMS 10/21/2023 [facility] Thyroglobulin Antibody <1.0 IU/mL 0.0-0.9 9 Thyroglobulin b y Yancy 2306.7 ng/mL High 1.4-29. 2 10 Triiodothyronine (T3), Free 10/21/2023 [facility] Triiodothyronine (T3), Free 3.0 pg/mL 2.0-4.4 TSH+Free T4 10/21/2023 [facility] TSH 0.010 uIU/mL Low 0.450-4 .500 T4,Free(Direct) 1.36 ng/dL 0.82-1. 77 TSH Rfx on Abnormal [...] .500 TSH With Reflex To FT4 04/15/2023 [facility] TSH With Reflex To FT4 <0.01 uIU/mL Low (0.4-4. 2) Free T4 04/15/2023 [facility] Free T4 2.06 ng/dL High (0.70-1 .80) TSH With Reflex To FT4 12/31/2022 [facility] TSH With Reflex To FT4 <0.01 uIU/mL Low (0.4-4. 2) Free T4 12/31/2022 [facility] Free T4 2.15 ng/dL High (0.70-1 .80) TSH With Reflex To FT4 11/12/2022 [facility] TSH With Reflex To FT4 <pending > TSH With Reflex To FT4 11/09/2022 [facility] TSH With Reflex To FT4 <0.01 uIU/mL Low (0.4-4. 2) Free T4 11/09/2022 [facility] Free T4 2.82 ng/dL High (0.70-1 .80) Acetylcholine Receptor Blocking AB 09/20/2022 [facility] Acetylcholine Receptor Blocking AB <15 11 TSH With Reflex To FT4 09/16/2022 [facility] TSH With Reflex To FT4 <0.01 uIU/mL Low (0.4-4. 2) Thyroglobulin,Tumor MRKR W/RFLX 09/16/2022 [facility] Thyroglobulin,Tumo r MRKR W/RFLX <1.0 12 Thyroglobulin Reflex Immunoassay 09/16/2022 [facility] Thyroglobulin Reflex Immunoassay 1101.5 High 13 TSH With Reflex To FT4 02/08/2022 [facility] TSH With Reflex To FT4 0.02 uIU/mL Low (0.4-4. 2) Thyroglobulin,Tumor MRKR W/RFLX 02/08/2022 [facility] Thyroglobulin,Tumo r MRKR W/RFLX <1.0 14 Free T4 02/08/2022 [facility] Free T4 1.77 ng/dL (0.70-1 .80) Thyroglobulin Reflex Immunoassay 02/08/2022 [facility] Thyroglobulin Reflex Immunoassay 777.0 High 15 Free T4 12/03/2021 [facility] Free T4 1.16 ng/dL (0.70-1 .80) TSH 12/03/2021 [facility] TSH 0.17 uIU/mL Low (0.4-4. 2) Thyroglobulin,Tumor MRKR W/RFLX 12/03/2021 [facility] Thyroglobulin,Tumo r MRKR W/RFLX <1.0 16 Thyroglobulin Reflex Immunoassay 12/03/2021 [facility] Thyroglobulin Reflex Immunoassay 1003.6 High 17 1 Thyroglobulin Antibo dy measured by [facility] Methodology It should be noted that the presence of thyroglobulin antibodies may not be pathogenic nor diagnostic, especially at very low levels. The assay fireman helper has found that four percent of individuals [...] Thyroglobulin measured by [facility] Immunometric Assay 3 Thyroglobulin Antibo dy measured by [facility] Methodology It should be noted that the presence of thyroglobulin antibodies may not be pathogenic nor diagnostic, especially at very low levels. The assay fireman helper has found that four percent of individuals [...] is 0.1 ng/mL Thyroglobulin measured by [facility] Immunometric Assay 5 Thyroglobulin Antibo dy measured by [facility] Methodology It should be noted that the presence of thyroglobulin antibodies may not be pathogenic nor diagnostic, especially at very low levels. The assay fireman helper has found that four percent of individuals [...] is 0.1 ng/mL Thyroglobulin measured by [facility] Immunometric Assay 7 Reference Range: Non- Adult 0.450-4.500 8 This test was develo ped and its performance characteristics determined by [employer]. It has not been cleared or approved by the Food and Drug Administration. Reference Range: Pubertal Children and Adults: 0.8 - 1.7 9 Thyroglobulin Antibo dy measured by [facility]ston Methodology It should be noted that the presence of thyroglobulin antibodies may not be pathogenic nor diagnostic, especially at very low levels. The assay fireman helper has found that four percent of individuals [...] Thyroglobulin measured by [facility] Immunometric Assay 11 Reference range: <15 Unit: % Inhibition 12 Reference range: 0.0 to 0.9 Unit: IU/mL (NOTE) Thyroglobulin Antibody measured by [facility] Elton Methodology Test performed by [employer], [address] [place] [address] 13 Reference range: 1.4 to 29.2 Unit: ng/mL [...] is 0.1 ng/mL Thyroglobulin measured by [facility] Immunometric Assay A duplicate report has been generated due to demographic updates. Test performed by [employer] [address] 14 Reference range: 0.0 to 0.9 Unit: IU/mL (NOTE) Thyroglobulin Antibody measured by [facility] Methodology Test performed by [employer] [address] 15 Reference range: 1.4 to 29.2 Unit: [...] Thyroglobulin measured by [facility] Immunometric Assay Test performed by [employer] [address] 16 Reference range: 0.0 to 0.9 Unit: IU/mL (NOTE) Thyroglobulin Antibody measured by [facility] Methodology Test performed by [employer] [address] 17 Reference range: 1.4 to 29.2 Unit: [...] is 0.1 ng/mL Thyroglobulin measured by [facility] Immunometric Assay Test performed by [employer] [address] Medical Devices Description No Information Available Encounters [...]
--- OUTSIDE RECORDS SUMMARY | 2025-01-10 22:44 | XMS_ITS | Encounter Summary ---
Author Organization [facility] Address Formerly [facility] [employer] [address] [address] Phone Care Team Providers Care Social And Human Services Assistant Name Role Phone Joann Lebron MD Primary Care Provider Yaakov Cuenca MD Unavailable Vicente Simons MD Unavailable [phone] Anjel Maldonado MD Unavailable Yahir Rodrigues MD Unavailable [phone] Kanika Carver MD Unavailable [phone] Cristiana Clement MD Unavailable Goyo Lyle MD Unavailable [phone] Isacc Phoenix MD Unavailable Trupti Gonzalez DO Unavailable [phone] Encounter Details Date Type Department Care Team (Late st Contact Info) Description 07/31/2018 Procedure Pass DF IMG OUTSIDE IMG [address] [place], [place] [id number] Social History Tobacco Use Types Packs/Day Years Used Date Smoking Tobacco: Never Assessed Sex and Gender Information Value Date Recorded Sex Assigned at Male 09/01/2019 1:32 PM EDT Legal Sex Male 10:12 PM EDT Gender Identity Male 09/01/2019 1:32 PM EDT Sexual Orientation Straight 09/01/2019 1: 33 PM EDT documented as of this encounter Plan of Treatment Not on file documented as of this encounter Visit Diagnoses Not on filedocumented in this encounter Care Teams Social And Human Services Assistant Relationship Specialty Start Date End Date Joann Lebron MD PCP - General Internal Medicine 07/24/18 Yaakov Cuenca MD [address] [place] [address] [email or web address] Referring Physician Internal Medicine 07/24/18 Vicente Simons MD [address] [place] [address] Neurosurgeon Psychiatry 07/31/18 Anjel Maldonado MD [address] [place] [address] Neurosurgeon Neurology 07/31/18 Yahir Rodrigues MD [address] [place] [address] Senior Treasury Consultant Endocrinology 08/31/18 07/19/21 Kanika Carver MD [address] [place] [address] [email or web address] Primary Oncologist Medical Oncology 09/07/18 07/16/21 Cristiana Clement MD [address] [place] [address] [email or web address] Radiation Oncology 09/07/18 Goyo Lyle MD [address] [place] [address], MRB [address] [place] [address] [email or web address] Primary Oncologist Medical Oncology 07/17/21 Isacc Phoenix MD [address] [place] [address] [place] [address] Senior Treasury Consultant Endocrinology 07/20/21 Trupti Gonzalez DO [address] [place] [address] Primary Oncologist Internal Medicine 07/19/22 documented as of this encounter Additional Source Comments The information contained in this document represents components of the legal health record. It is not the complete legal health record.[facility]
--- OUTSIDE RECORDS SUMMARY | 2025-01-10 22:44 | XMS_ITS | Encounter Summary ---
Author Organization [facility] Address [facility] [address] [place] [address] Phone Care Team Providers Care Candy Rolling Machine Operator Name Role Phone Joann Lebron MD Primary Care Provider Vicente Simons MD Unavailable [phone] Anjel Maldonado MD Unavailable Cristiana Clement MD Unavailable Goyo Lyle MD Unavailable [phone] Isacc Phoenix MD Unavailable Trupti Gonzalez DO Unavailable Encounter Details Date Type Department Care Team (Late st Contact Info) Description 07/22/2022 Telephone [facility] Department of Neurology [address] [facility], 8th Floor, [address] [place] [address] Hollis Pichardo MD, MPH [address] [facility]. [address] [place] [address] [email or web address] Social History Tobacco Use Types Packs/Day Years Used Date Smoking Tobacco: Never Smokeless Tobacco: Never Alcohol Use Standard Drinks/Week Comments Never 0 (1 standard drink = 0.6 oz pur e alcohol) Education Answer Date Recorded Are you interested in more education? Not on stacey e 07/09/2022 Are you concerned about learning? Not on file 07/09/2022 No 07/09/2022 No 07/09/2022 Sex and Gender Information Value Date Recorded Sex Assigned at Male 09/01/2019 1:32 PM EDT Legal Sex Male 10:12 PM EDT Gender Identity Male 09/01/2019 1:32 PM EDT Sexual Orientation Straight 09/01/2019 1: 33 PM EDT documented as of this encounter Plan of Treatment Not on file documented as of this encounter Visit Diagnoses Not on filedocumented in this encounter Care Teams Candy Rolling Machine Operator Relationship Specialty Start Date End Date Joann Lebron MD PCP - General Internal Medicine 07/24/18 Vicente Simons MD [address] [place] [address] [address] [place] [address] Neurosurgeon Psychiatry 07/31/18 Anjel Maldonado MD [address] [place] [address] Neurosurgeon Neurology 07/31/18 Cristiana Clement MD [address] [place] [address] [email or web address] Radiation Oncology 09/07/18 Goyo Lyle MD [address] [place] [address], MRB [address] [place] [address] [email or web address] Primary Oncologist Medical Oncology 07/17/21 Isacc Phoenix MD [address] [place] [address] [facility] [place] [address] Practice Professional Endocrinology 07/20/21 Trupti Gonzalez DO [address] [place] [address] Primary Oncologist Internal Medicine 07/19/22 documented as of this encounter Additional Source Comments The information contained in this document represents components of the legal health record. It is not the complete legal health record.[facility]
--- OUTSIDE RECORDS SUMMARY | 2025-01-10 22:44 | XMS_ITS | Clinical Summary ---
Author Organization [facility] Address [facility] [address] [address] Phone Care Team Providers Care Plant Control Aide Name Role Phone Joann Lebron MD Primary Care Provider Vicente Simons MD Unavailable [phone] Anjel Maldonado MD Unavailable Cristiana Clement MD Unavailable Goyo Lyle MD Unavailable [phone] Isacc Phoenix MD Unavailable Trupti Gonzalez DO Unavailable Allergies Active Allergy Reactions Criticality Noted Date Comments Fluorouracil Hives 02/23/2023 Gabapentin 07/11/2019 Other reaction(s): Nightmares Mirabegron Hives 10/02/2013 Morphine Sweating Low 09/19/2018 Oxybutynin 10/02/2013 Other reaction(s): Carunculae myrtiformis Medications selegiline (ELDEPRYL) 5 mg tablet Take 5 mg by mouth 2 (two) times a day with meals. Active carbidopa-levod opa (SINEMET) 25-100 mg per tabletIndicatio ns:1.5 tablets in am and pm and take 1 pill in the afternoon Take by mouth 3 (three) times a day. Indications: 1.5 tablets in am and pm and take 1 pill in the afternoon Active saw palmetto 160 mg Cap Active multivitamin with minerals tablet Take by mouth. Activ e ergocalciferol, vitamin D2, 50 mcg (2,000 unit) Cap Take by mouth. Activ e vitamin A,C & S-pagirq-smmwcj ls (OCUVITE) 300 mcg-200 mg-27 mg-2 mg Tab Active flaxseed oil 1,000 mg Cap Active vitamin B complex (B COMPLEX 1 ORAL) as directed Ac tive magnesium oxide 400 mg magnesium Tab Take by mouth. A ctive magnesium citrate solutionIndicat ions:1 pill daily Take by mouth 2 (two) times a day. Indications: 1 pill daily Active calcium citrate (CALCITRATE) 950 mg (200 mg elemental) tablet Take 1 tablet (950 mg total) by mouth every 6 (six) hours. Prevents low blood calcium after thyroid surgery. Call surgeon if tingling symptoms. 120 tablet 9 Active omeprazole (PRILOSEC) 20 MG capsule Take 1 capsule (20 mg total) by mouth 2 (two) times a day. 30 capsule 1 9 Active ubidecarenone (COQ-10 ORAL) 1,200 mg daily. Active simvastatin (ZOCOR) 20 MG tablet Take 1 tablet (20 mg total) by mouth every other day. 2 Active levothyroxine (SYNTHROID, LEVOTHROID) 150 MCG tablet Take 1 tablet (150 mcg total) by mouth as directed. Every morning- 1 tab Tuesday-Tuesday; 2 tabs on Tuesday, 2.5 tabs on Tuesday 30 tablet 3 2 Active glycopyrrolate (ROBINUL) 1 mg tablet Take 1 tablet (1 mg total) by mouth 3 (three) times a day. 2 Active pramipexole (MIRAPEX) 0.25 MG tablet Take 1 tablet by mouth 3 (three) times a day. 1 Active aspirin 81 MG EC tablet Take 81 mg by mouth daily. Active pregabalin (LYRICA) 50 MG capsule Take 1 capsule by mouth 3 (three) times a day. 2 Active tamsulosin (FLOMAX) 0.4 mg Cap Take 0.8 mg by mouth nightly at bedtime. Active melatonin 3 mg Tab Take 3 mg by mouth nightly at bedtime. 2 Active cholecalciferol (CHOLECALCIFERO L) 400 unit tablet Take 400 Units by mouth daily. Active vitamins A,C,E-zinc-juan er (PRESERVISION AREDS) 14,320-226-200 wyju-ae-kbrn Cap Take 1 capsule by mouth 2 (two) times a day with meals. Active zinc 50 mg Tab tablet Take 50 mg by mouth daily. Active beta-sitos/D3/m inerals/cranber (PROSTATE MAX PLUS ORAL) Take by mouth. Acti ve Lactobac no.41/Bifidobac t no.7 (PROBIOTIC-10 ORAL) Take by mouth. Activ e finasteride (PROSCAR) 5 mg tablet Take by mouth. 3 Active furosemide (LASIX) 20 MG tablet Take 20 mg by mouth 2 (two) times a day. Active lidocaine 4 % See Instructions, Topically Daily at night time and remove 12 hours, # 30 each, 0 Refills, Maintenance, 03/26/22 12:19:00 [facility] # [facility], Partial fill upon patient request if the prescription is for a schedule II opioid drug., Topically Da... 3 Active lisinopril (PRINIVIL,ZESTR IL) 5 MG tablet Take 5 mg by mouth daily. Active naproxen sodium (ALEVE) 220 MG tablet Take 220 mg by mouth 2 (two) times a day with meals. Active rOPINIRole (REQUIP) 1 MG tablet Take 1 mg by mouth 3 (three) times a day. 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 08/08/2018 Overview (08/08/2018): CT guided bx and and cemented pathological fracture- metastatic thyroid CA- XRT to pelvis begins 08/08/18 (plan for total 5 treatments) Primary malignant neoplasm of thyroid gland 07/13 Overview (07/20/2021): Sep 12, 2018 Entered By: IZABEL CLEMENS Comment: 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 GERD (gastroesophageal reflux disease) Immunizations Immunization Administration Dates Next Due COVID-19 (Pre-01/03) Moderna Vaccine, mRNA, PF 01/27/2021,04/30/2020,04/02/2020 DTaP, unspecified formulation 09/12/2012 [id number] FORMULATION 05/13/2009 INFLUENZA, SPLIT VIRUS, TRIV ALENT W/ PRESERVATIVE IM 12/27/2018,01/04/2018,12/13/2016,01/20 Influenza Quadrivalent Prese rvative Free IM 12/06/2019 Influenza, Unspecified Formulation 12/24,12/04/2018,12/08/2015,12/05,01/12/2014,01/16/2013,11/29/2011 ,02/16/2011,01/12/2010,12/23/2008,03/2007,01/09/2007 Pneumococcal conjugate PCV13 08/18/2018( Deferred: Patient Refused),06/04/2014 Pneumococcal polysaccharide PPSV23 12/06/2019 Pneumococcal, Unspecified Formulation 03/14/2006 ,01/12/2002 Td, unspecified formulation 09/15/2010 Zoster live 11/30/2011 Zoster recombinant 08/08/2019,03/13/2019 Social History Tobacco Use Types Packs/Day Years Used Date Smoking Tobacco: Never Smokeless Tobacco: Never Alcohol Use Standard Drinks/Week Comments Never 0 (1 standard drink = 0.6 oz pur e alcohol) Education Answer Date Recorded Are you interested in more education? Not on stacey e 07/09/2022 Are you concerned about learning? Not on file 07/09/2022 No 07/09/2022 No 07/09/2022 Digital Access Answer Date Recorded No 08/09/2022 No 08/09/2022 Reliable internet access at home? Not on file 08/09/2022 Device with a working camera? Not on file Sex and Gender Information Value Date Recorded Sex Assigned at Male 09/01/2019 1:32 PM EDT Legal Sex Male 10:12 PM EDT Gender Identity Male 09/01/2019 1:32 PM EDT Sexual Orientation Straight 09/01/2019 1: 33 PM EDT Last Filed Vital Signs Vital Sign Reading Time Taken Comments Blood Pressure 122/76 04/14/2023 9:27 AM EST Pulse 96 04/14/2023 9:27 AM EST Temperature 36.5 C (97.7 F) 02/21/2023 10:02 AM EST Respiratory Rate 16 02/21/2023 10:02 AM EST Oxygen Saturation 98% 04/14/2023 9:27 AM EST Inhaled Oxygen Concentration - - Weight 65.5 kg (144 lb 6.4 oz) 02/21/2023 10:02 AM EST Height 153 cm (5' 0.24 ) 02/21/2023 10:02 AM EST Body Mass Index 27.98 02/21/2023 10:02 AM EST Plan of Treatment Health Maintenance Due Date Last Done Comments DEPRESSION SCREENING 1952 RSV VACCINE (1 - 1-dose 75+ series) 06/04/2015 CREATININE LEVEL 08/09/2019 08/08/2018 POTASSIUM LEVEL 08/09/2019 08/08/2018 TSH LEVEL 09/08/2019 09/07/2018 Adult Td,Tdap Booster 09/15/2020 09/15/2010 BLOOD PRESSURE 10/13/2023 04/14/2023 INFLUENZA VACCINE (#1) 2024 , 12/24/2020, 12/06/2019, Additional history exists COVID-19 VACCINE (2024- season) 2024 08/18/2021, 01/27/2021, 04/30/2020, Additional history exists ZOSTER VACCINES Completed 08/08/2019, 02/13, 11/30/2011 PNEUMOCOCCAL VACCINES (50+ years) Completed 12/06/2019, 06/04/2014 HEPATITIS A VACCINES Aged Out No long er eligible based on patient's age to complete this topic HIB VACCINES Aged Out No longer eligi ble based on patient's age to complete this topic MENINGOCOCCAL VACCINES (ACWY) Aged Out No longer eligible based on patient's age to complete this topic MENINGOCOCCAL VACCINES (B) Aged Out N o longer eligible based on patient's age to complete this topic Medical Devices Not on file Procedures Procedure Name Priority Date/Time Associated Diagnosis Comments TSH Routine 09/07/2018 10:22 AM EDT Malignant neoplasm of thyroid gland BASIC METABOLIC PANEL Routine 08/08/2018 9:26 AM EDT Pre-op exam from Last 3 Months or Most Recently Relevant to Health Maintenance Results * (ABNORMAL) TSH (09/07/2018 10:22 AM EDT) TSH 12.35(H) 0.50 - 5.70 uIU/mL [facility] 09/07/2018 10:2 2 AM EDT 09/07/2018 10:46 AM EDT James Wells MD LAB BLOOD ORDERABLES Final Res ult Performing Organization Address City/State/[facility] Co de Phone Number [facility] [address] [place] [address] * Basic metabolic panel (08/08/2018 9:26 AM EDT) SODIUM 143 136 - 145 mmol/L [facility] POTASSIUM 3.7 3.4 - 5.1 mmol/L [facility] CHLORIDE 100 98 - 107 mmol/L [facility] CO2 30 22 - 31 mmol/L [facility] BUN 15 6 - 23 mg/dL [facility] CREATININE 1.02 0.50 - 1.20 mg/dL [facility] GLUCOSE 97 70 - 100 mg/dL [facility] CALCIUM 9.2 8.8 - 10.7 mg/dL [facility] EGFR 70 >59 mL/min/1.7 3m2 [facility] Comment:If patient is black, multiply result by 1.159. Estimated glomerular filtration rate calculated using the CKD-EPI equation. ANION GAP 13 7 - 17 mmol/L [facility] Blood 08/08/2018 9:26 AM EDT 08/08/2018 9:54 AM EDT James Wells MD LAB BLOOD ORDERABLES Final Res ult [facility] [address] [place] [address] from Last 3 Months or Most Recently Relevant to Health Maintenance Insurance MEDICARE PART A & B MEDICARE SUPPLEMENT MEDICARE PART A & B MEDICARE SUPPLEMENT MEDICARE PART A & B Member Subscriber Plan / Payer ( fective 2007-) Name:SrinathtaylorSimeon Member ID:[id number] Relation to Subscriber:Self Name:Osmarjamestaylor Simeon Nigel Subscriber ID:[id number] Payer ID:[id number] Group ID:Not on file Type:Medicare Address: [employer] [facility] [address] [address] [facility] MEDICARE SUPPLEMENT MEDICARE PART A & B Member Subscriber Plan / Payer ( fective 2007-) Name:Simeon Mahoney Member ID:[id number] Relation to Subscriber:Self Name:Simeon Mahoney Subscriber ID:[id number] Payer ID:[id number] Group ID:Not on file Type:Medicare Address: [employer] [address] MEDICARE SUPPLEMENT MEDICARE PART A & B MEDICARE SUPPLEMENT MEDICARE PART A & B Member Subscriber Plan / Payer ( fective 2007-Present) Name:Simeon Mahoney Member ID:[id number] Relation to Subscriber:Self Name:Simeon Mahoney Subscriber ID:[id number] Payer ID:[id number] Group ID:Not on file Type:Medicare Address: [employer] [address] MEDICARE SUPPLEMENT MEDICARE PART A & B Member Subscriber Plan / Payer (Ef fective 2007-Present) Name:Simeon Mahoney Member ID:[id number] Relation to Subscriber:Self Name:Simeon Mahoney Subscriber ID:[id number] Payer ID:[id number] Group ID:Not on file Type:Medicare Address: [employer] [address] MEDICARE SUPPLEMENT MEDICARE PART A & B Member Subscriber Plan / Payer (Ef fective 2007-Present) Name:Maru Simeon Nigel Member ID:[id number] Relation to Subscriber:Self Name:Simeon Mahoney Subscriber ID:[id number] Payer ID:[id number] Group ID:Not on file Type:Medicare Address: [employer] [address] MEDICARE SUPPLEMENT MEDICARE PART A & B MEDICARE SUPPLEMENT Advance Directives For more information, please contact: [phone] (9AM - 5PM [place], Tuesday-Tuesday) Documents on File Type Date Recorded Patient Senior Clinical Research Scientist Expl anation Serious Illness Care 07/31/2018 Patient Medication List * Full Code (Presumed) (Latest Code Status on File) Date Activated Date Inactivated Comments 08/18/2018 12:15 AM 08/18/2018 2:37 PM Healthcare Agents on File Name Relationship Healthcare Agent Relationship Communication Sarah Mahoney Spouse .Primary Healt h Care Agent (Proxy form on file) Care Teams Plant Control Aide Relationship Specialty Start Date End Date Joann Lebron MD PCP - General Internal Medicine 07/24/18 Vicente Simons MD [address] [place] [address] [address] [place] [address] Neurosurgeon Psychiatry 07/31/18 Anjel Maldonado MD [address] [place] [address] Neurosurgeon Neurology 07/31/18 Cristiana Clement MD [address] [place] [address] [email or web address] Radiation Oncology 09/07/18 Goyo Lyle MD [address] [place] [address], MRB [address] [place] [address] [email or web address] Primary Oncologist Medical Oncology 07/17/21 Isacc Phoenix MD [address] [place] [address] [address] [place] [address] Travel Pta Endocrinology 07/20/21 Trupti Gonzalez DO [address] [place] [address] Primary Oncologist Internal Medicine 07/19/22 Additional Source Comments The information contained in this document represents components of the legal health record. It is not the complete legal health record.[facility]
--- OUTSIDE RECORDS SUMMARY | 2025-01-10 22:44 | XMS_ITS | Encounter Summary ---
Author Organization [facility] Address [address] [place] [address] Phone Care Team Providers Care Boom Crane Operator Name Role Phone Joann Lebron MD Primary Care Provider [phone] Yaakov Cuenca MD Unavailable Vicente Simons MD Unavailable [phone] Anjel Maldonado MD Unavailable [phone] Yahir Rodrigues MD Unavailable [phone] Kanika Carver MD Unavailable [phone] Cristiana Clement MD Unavailable Goyo Lyle MD Unavailable [phone] Isacc Phoenix MD Unavailable Trupti Gonzalez DO Unavailable Encounter Details Date Type Department Care Team (Late st Contact Info) Description 09/07/2018 Procedure Pass [facility] IMG OUTSIDE IMG [address] [place], [place] [id number] Social History Tobacco Use Types Packs/Day Years [...] on filedocumented in this encounter Care Teams Boom Crane Operator Relationship Specialty Start Date End Date Joann Lebron MD PCP - General Internal Medicine 07/24/18 Yaakov Cuenca MD [address] [place] [address] [email or web address] Referring Physician Internal Medicine 07/24/18 Vicente Simons MD [address] [place] [address] Neurosurgeon Psychiatry 07/31/18 Anjel Maldonado MD [address] [place] [address] Neurosurgeon Neurology 07/31/18 Yahir Rodrigues MD [address] [place] [address] Electrical High Tension Tester Endocrinology 08/31/18 07/19/21 Kanika Carver MD [address] [place] [address] [email or web address] Primary Oncologist Medical Oncology 09/07/18 07/16/21 Cristiana Clement MD [address] [place] [address] [email or web address] Radiation Oncology 09/07/18 Goyo Lyle MD [address] [place] [address], MRB [address] [place] [address] [email or web address] Primary Oncologist Medical Oncology 07/17/21 Isacc Phoenix MD [address] [place] [address] [address]RAY [address] [place] [address] Electrical High Tension Tester Endocrinology 07/20/21 Trupti Gonzalez DO [address] [place] [address] Primary Oncologist Internal Medicine 07/19/22 documented as of this encounter Additional Source Comments The information contained in this document represents components of the legal health record. It is not the complete legal health record.[facility]
--- OUTSIDE RECORDS SUMMARY | 2025-01-10 22:44 | XMS_ITS | Encounter Summary ---
Author Organization [facility] Address [address] [place] [address] Phone Care Team Providers Care Bin Cleaner Name Role Phone Joann Lebron MD Primary Care Provider Yaakov Cuenca MD Unavailable [phone] Vicente Simons MD Unavailable [phone] Anjel Maldonado MD Unavailable [phone] Yahir Rodrigues MD Unavailable [phone] Kanika Carver MD Unavailable [phone] Cristiana Clement MD Unavailable Goyo Lyle MD Unavailable [phone] Isacc Phoenix MD Unavailable Trupti Gonzalez DO Unavailable Encounter Details Date Type Department Care Team (Late st Contact Info) Description 08/17/2018 Procedure Pass [facility] Periop [address] [place] [address] Social History Tobacco Use Types Packs/Day Years [...] on filedocumented in this encounter Care Teams Bin Cleaner Relationship Specialty Start Date End Date Joann Lebron MD PCP - General Internal Medicine 07/24/18 Yaakov Cuenca MD [address] [place] [address] [email or web address] Referring Physician Internal Medicine 07/24/18 Vicente Simons MD [address] [place] [address] Neurosurgeon Psychiatry 07/31/18 Anjel Maldonado MD [address] [place] [address] Neurosurgeon Neurology 07/31/18 Yahir Rodrigues MD [address] [place] [address] Manager Utilization Review Endocrinology 08/31/18 07/19/21 Kanika Carver MD [address] [place] [address] [email or web address] Primary Oncologist Medical Oncology 09/07/18 07/16/21 Crsitiana Clement MD [address] [place] [address] [email or web address] Radiation Oncology 09/07/18 Goyo Lyle MD [address], MRB [address] [place] [address] [email or web address] Primary Oncologist Medical Oncology 07/17/21 Isacc Phoenix MD [address] [place] [address] Dr [address]RAY [address] [place] [address] Manager Utilization Review Endocrinology 07/20/21 Trupti Gonzalez DO [address] [place] [address] Primary Oncologist Internal Medicine 07/19/22 documented as of this encounter Additional Source Comments The information contained in this document represents components of the legal health record. It is not the complete legal health record.[facility]
--- OUTSIDE RECORDS SUMMARY | 2025-01-10 22:44 | XMS_ITS | Encounter Summary ---
Author Organization [facility] Address [address] [place] [address] Phone Care Team Providers Care Scientific Software Developer Name Role Phone Joann Lebron MD Primary Care Provider Yaakov Cuenca MD Unavailable Vicente Simons MD Unavailable [phone] Anjel Maldonado MD Unavailable Yahir Rodrigues MD Unavailable [phone] Kanika Carver MD Unavailable [phone] Cristiana Clement MD Unavailable Goyo Lyle MD Unavailable [phone] Isacc Phoenix MD Unavailable Trupti Gonzalez DO Unavailable Encounter Details Date Type Department Care Team (Late st Contact Info) Description 11/16/2018 Procedure Pass [facility] [address] [place] [address] Social History Tobacco Use Types Packs/Day Years [...] on filedocumented in this encounter Care Teams Scientific Software Developer Relationship Specialty Start Date End Date Joann Lebron MD PCP - General Internal Medicine 07/24/18 Yaakov Cuenca MD [address] [place] [address] [email or web address] Referring Physician Internal Medicine 07/24/18 Vicente Simons MD [address] [place] [address] Neurosurgeon Psychiatry 07/31/18 Anjel Maldonado MD [address] [place] [address] Neurosurgeon Neurology 07/31/18 Yahir Rodrigues MD [address] [place] [address] Manager Sales Training Endocrinology 08/31/18 07/19/21 Kanika Carver MD [address] [place] [address] [email or web address] Primary Oncologist Medical Oncology 09/07/18 07/16/21 Cristiana Clement MD [address] [place] [address] [email or web address] Radiation Oncology 09/07/18 Goyo Lyle MD [address] [place] [address], MRB [address] [place] [address] [email or web address] Primary Oncologist Medical Oncology 07/17/21 Isacc Phoenix MD [address] [place] [address] Dr GRAY [address] [place] [address] Manager Sales Training Endocrinology 07/20/21 Trupti Gonzalez DO [address] [place] [address] Primary Oncologist Internal Medicine 07/19/22 documented as of this encounter Additional Source Comments The information contained in this document represents components of the legal health record. It is not the complete legal health record.[facility]
--- OUTSIDE RECORDS SUMMARY | 2025-01-10 22:44 | XMS_ITS | Clinical Summary ---
Author Organization [facility] Address [address] [place] [address] Care Team Providers Care Data Warehouse Architect Name Role Phone Felipa Dia MD Primary Care Provider [phone] Allergies Active Allergy Reactions Criticality Noted Date [...] 09/12/2012, 0 09/15/2010 COVID-19 Vaccine ( season) 2024 02/01/2023, 08/18/2021, 04/30/2020, Additional history exists Influenza [...] age to complete this topic Care Teams Data Warehouse Architect Relationship Specialty Start Date End Date Felipa Dai MD [address] [place] [address] [address] [place] [address] PCP - General Internal Medicine 07/12/23
--- OUTSIDE RECORDS SUMMARY | 2025-01-10 22:45 | XMS_ITS ---
Author Organization [facility] Address [address] [place] [address] Phone Care Team Providers Care Human Services Worker Name Role Phone Felipa Dai MD Primary Care Provider [phone] Active Problems Problem Noted Date Diagnosed Date Secondary malignant neoplasm of pleura ([facility] [place]24, [facility] [place] V28[place] 01/01/2025 Chronic bronchitis, unspecif ied chronic bronchitis type ([facility] [place] V2, [facility] [place] V28[place] 01/01/2025 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 limited to breakdown of skin ([facility] [place] V24, [facility] [place] V28) 06/26/2024 Non-pressure chronic ulcer o f other part of right foot limited to breakdown of skin ([facility] [place] V2, [facility] [place] V28) 06/19/2024 Abrasion of foot, right, subsequent encounter Abrasion, right foot, initial encounter 06/07/19 25 Skin ulcer of left foot, wit h fat layer exposed ([facility] [place] V24, [facility] [place] V28) 06/06/2024 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 (CODE) ([facility] [place] V24, [facility] [place] V28) 06/06/2024 Non-pressure chronic ulcer o f other part of right lower leg with fat layer exposed ([facility] [place] V24, [facility] [place] V28) 05/23/2024 Skin ulcer of knee, right, l imited to breakdown of skin ([place] [id number], [facility] V28) 05/23/2024 Abrasion of right knee 05/16/2024 Chronic venous hypertension (idiopathic) with ulcer of right lower extremity (CODE) ([facility] [place] V24, [facility] V28) 05/16/2024 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 with fat layer exposed ([facility] V24, [facility] V28) 05/16/2024 Abrasion, left knee, initial encounter Skin ulcer of right knee wit h fat layer exposed ([facility] V24, [facility] V28) 05/16/2024 Skin ulcer of left knee with fat layer exposed ([facility] V24, [facility] V28) 05/16/2024 Hypertension 12/24/2023 Assessment & Plan (10/17/2024 4:17 PM EDT): Patient's blood pressure well controlled. Follow with addition of furosemide. 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 Continue conservative therapy with aspirin Parkinson disease ([facility] V24, [facility] V28) 07/2021 Chronic diastolic heart failure ([facility] V24, [facility] V28) 07/24/2021 Overview (12/24/2023): Last Assessment & Plan: Today the patient [...] 15 to 20 minutes to call 911. Assessment & Plan (02/20/2024 10:28 AM EST): Diastolic dysfunction 08/08/2020 Overview (10/17/2024): - Most recent echocardiogram 06/2024, TDS due to his body habitus, but LVEF 55- 70%, RV not well visualized but appeared normal in size, probably normal atria size, and no obvious valve diease Assessment & Plan (10/17/2024 4:27 PM EDT): The patient has lower extremity edema that is new to him. He has a technically limited echocardiogram in June due to his body habitus, but normal LVEF without obvious valve disease The patient's did not bring in a medication list or his pill bottles. She dropped off the medication list and there still were discrepancies based on what was in our EMR. Notably, there is a prescription for Florinef. Tomasa was able to find a neurology note from Dr. Hines from August 2024 indicating that he had some soft blood pressures. At that time, his levodopa was decreased to 1 tablet 4 times daily and he was started on the Florinef. This likely is the etiology of his lower extremity edema coupled with likely age-related venous insufficiency. Further, the patient always sits with his legs dependent as it is not comfortable for him to elevate them. To start, will give him 20 mg of Lasix once daily for 2 days. I reached out to Dr. Hines directly, and he agrees to stopping the Florinef and following up in his office for Parkinson medication titration and to follow his blood pressure. We will follow-up with the patient's on Tuesday and ensure that Florinef is taken out of his medication box and see how his swelling is doing. 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 At that time he was sent home on outpatient abx therapy with surgery follow up. He then had MRI on 09/04 with the same impression. Patient underwent laparoscopic converted to open cholecystectomy on 09/08/2016 and remained in the hospital for 2 nights. 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 Per his surgeon Dr Maldonado there is an issue of persistent choledocholithiasis for which future MRCP with ERCP maybe needed. In the hospital his BP was soft and his lisinopril was discontinued. He is feeling very well since discharge. Mild anemia 06/27/2015 AK (actinic keratosis) 02/12/2014 BPH (benign prostatic hyperplasia) 05/10/2011 GERD (gastroesophageal reflux disease) 2 Hyperlipidemia 05/10/2011 Assessment & Plan (10/17/2024 4:23 PM EDT): Controlled lipid profile from 2022. He is not on his simvastatin per his 's notes. We can follow-up with this at his next office visit. 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 Past Treatment and Therapy Plans No past plan information found. Resolved Problems Problem Noted Date Diagnosed Date Resolved Date Pure hypercholesterolemia 12/24/2023
--- OUTSIDE RECORDS SUMMARY | 2025-01-10 22:45 | XMS_ITS | Encounter Summary ---
Author Organization [facility] Address [facility] [address] [address] Phone Care Team Providers Care Hand Coremaker Name Role Phone Joann Lebron MD Primary Care Provider Yaakov Cuenca MD Unavailable Vicente Simons MD Unavailable [phone] Anjel Maldonado MD Unavailable Yahir Rodrigues MD Unavailable [phone] Kanika Carver MD Unavailable [phone] Cristiana Clement MD Unavailable Goyo Lyle MD Unavailable [phone] Isacc Phoenix MD Unavailable Trupti Gonzalez DO Unavailable Encounter Details Date Type Department Care Team (Late st Contact Info) Description 07/31/2018 Procedure Pass DF IMG OUTSIDE IMG [address] [place], [place] [id number] Social History Tobacco Use Types Packs/Day Years [...] on filedocumented in this encounter Care Teams Hand Coremaker Relationship Specialty Start Date End Date Joann Lebron MD PCP - General Internal Medicine 07/24/18 Yaakov Cuenca MD [address] [place] [phone] [email or web address] Referring Physician Internal Medicine 07/24/18 Vicente Simons MD [address] [place] [address] Neurosurgeon Psychiatry 07/31/18 Anjel Maldonado MD [address] [place] [address] Neurosurgeon Neurology 07/31/18 Yahir Rodrigues MD [address] [place] [address] Operations Accountant Endocrinology 08/31/18 07/19/21 Kanika Carver MD [address] [place] [id number] [email or web address] Primary Oncologist Medical Oncology 09/07/18 07/16/21 Cristiana Clement MD [address] [place] [phone] [email or web address] Radiation Oncology 09/07/18 Goyo Lyle MD [address] [place] [address], MRB [address] [place] [address] [email or web address] Primary Oncologist Medical Oncology 07/17/21 Isacc Phoenix MD [address] [place] [address] [place] [address] Operations Accountant Endocrinology 07/20/21 Trupti Gonzalez DO [address] [place] [address] Primary Oncologist Internal Medicine 07/19/22 documented as of this encounter Additional Source Comments The information contained in this document represents components of the legal health record. It is not the complete legal health record.[facility]
--- OUTSIDE RECORDS SUMMARY | 2025-01-10 22:45 | XMS_ITS | Encounter Summary ---
Author Organization [facility] Address [address] [place] [address] Care Team Providers Care Front End Application Developer Name Role Phone Felipa Dai MD Primary Care Provider [phone] Encounter Details Date Type Department Care Team (Late st Contact Info) Description 01/07/2025 Telephone Hematology Oncology [address] [place] [phone] Trupti Gonzalez, DO [address] [place] [address] Social History Tobacco Use Types Packs/Day Years [...] as of this encounter Progress Notes * Yenni Patel - 01/08/2025 2:17 PM EDT Patient came into the office today to follow up on a follow up. I offered a visit for 01/23 at 11amwith our PA Sheryl. Patient is also doing lab work today for the CT scan on 01/15. * Darya Cox - 01/08/2025 10:08 AM EDT July Order: Expected Date: 01/12/2025 This was the next available. They are now booking out to 01/31. * Trupti Gonzalez DO - 01/07/2025 10:10 AM EDT Is there anyway this could be fixed. The scan was ordered in July. * Yenni Patel - 01/07/2025 10:07 AM EDT Patient came into the office to reschedule his 01/09 appt with MD due to CT scan being scheduled 01/15. Dr. Gonzalez is booking into February. Is that too far to schedule the patient out to review results? I told the patient I will be in contact with him to reschedule the appointment with MD. He isaware we cancelled 01/09. documented in this encounter Plan of Treatment Upcoming Encounters Date Type Department Care Team (Late st Contact Info) Description 01/15/2025 10:[address] Scan [address] [place] [address] 01/23/2025 11:00 AM EST Office Visit Hematology Oncology [address] [place] [phone] Sheryl Chappell PA [address] [place] [phone] 02/22/2025 11:00 AM EST Appointment Infusion Center [address] [place] [phone] 03/21/2025 8:45 AM EST Office Visit Internal Medicine - [place] [address] [place] [phone] Felipa Dai MD [address] [place] [address] 04/23/2025 1:30 PM EST Office Visit [facility] [address] [facility] [address] [place] [phone] Porfirio Malone MD [address] [place] [address] [address] [place] [address] 08/29/2025 11:30 AM EDT Office Visit Vascular Surgery - [place] [address] [place] [phone] Arleth Silveira MD [address] [place] [phone] documented as of this encounter Goals Goal Patient Goal Type Associated Problems Recent Progress Patient-Stated? Author Wound volume breakdown reduced by X% by week 4 Care Plan Impaired Tissue Charu Amador RN Wound volume breakdown reduced by X% by week 8 Care Plan Impaired Tissue Charu Amador RN [...] documented as of this encounter Care Teams Front End Application Developer Relationship Specialty Start Date End Date Felipa Dai MD [address] [facility] [address] [place] [phone] PCP - General 07/12/23 documented as of this encounter
--- OUTSIDE RECORDS SUMMARY | 2025-01-10 22:45 | XMS_ITS | Clinical Summary ---
Author Organization 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 ALBUTEROL SULFATE 108 (90 Base) MCG/ACT Active aspirin 81 mg chewable tablet Take 81 mg by mouth daily. Active carbidopa-levodop a (SINEMET) 25-100 mg per tablet Take 1 tablet by mouth 4 (four) times a day. Active arm brace (Elbow Compression Sleeve) misc 01/02/20 19 Active finasteride (PROSCAR) 5 mg tablet Take 1 tablet (5 mg total) by mouth 1 (one) time each day. Active omeprazole OTC (PriLOSEC OTC) 20 mg EC tablet Take by mouth. Take 1 Capsule by mouth 2 times daily. Active omeprazole (PriLOSEC) [address] capsule Take 1 capsule (20 mg total) by mouth 1 (one) time each day. Active simvastatin (ZOCOR) 20 mg tablet Active melatonin 3 mg tablet Take 1 tablet (3 mg total) by mouth at bedtime. 28 tablet 2 01/28/20 Active LORazepam (ATIVAN) 0.5 mg tablet Take 1 tablet (0.5 mg total) by mouth 2 (two) times a day if needed for anxiety. Max Daily Amount: 1 mg 30 tablet 02/06/20 Active cholecalciferol (VITAMIN D-3) 50 mcg (2,000 unit) tablet Take 1 tablet (2,000 Units total) by mouth 1 (one) time each day. Active cyanocobalamin (VITAMIN B-12) 250 mcg tablet Take 1 tablet (250 mcg total) by mouth 1 (one) time each day. Active calcium carbonate 1,500 mg (600 mg elemental calcium) tablet Take 1 tablet (1,500 mg total) by mouth 1 (one) time each day. Active lactobacillus acidoph-l.bulgar 100 million cell granules in packet Take 1 packet by mouth 1 (one) time each day. Active levothyroxine (SYNTHROID, LEVOTHROID) 150 mcg tablet Take 1 tablet (150 mcg total) by mouth 1 (one) time each day before breakfast. Active nutritional drink (Ensure MAX Protein) liquidIndications :Weight loss,Generalized weakness,Parkinso n's disease with dyskinesia, unspecified whether manifestations fluctuate (CMS/HCC V24, CMS/HCC V28) Take 118 mL by mouth 1 (one) time each day. 1000 mL 11 10/26/19 25 Active furosemide (LASIX) 20 mg tablet Take 1 tablet (20 mg total) by mouth 1 (one) time each day. 90 each 1 11/08/19 25 2025 Active scopolamine (TRANSDERM-SCOP) 1 mg over 3 days patch 3 dayIndications:Hy persalivation Apply 1 patch topically every 3rd (third) day if needed (nausea). 10 patch 01/02/20 25 Active pramipexole (MIRAPEX) 0.25 mg tablet TAKE ONE TABLET BY MOUTH THREE TIMES DAILY 90 tablet 1 01/08/20 25 Active pramipexole (MIRAPEX) 0.25 mg tablet TAKE ONE TABLET BY MOUTH THREE TIMES DAILY 90 tablet 12/11/19 25 2024 Discontinued scopolamine (TRANSDERM-SCOP) 1 mg over 3 days patch 3 dayIndications:Hy persalivation Apply 1 patch topically every 3rd (third) day if needed (nausea). 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 limited to breakdown of skin ([facility] V24, [facility] V28) 06/26/2024 Non-pressure chronic ulcer o f other part of right foot limited to breakdown of skin ([facility] V24, [facility] V28) 06/19/2024 Abrasion of foot, right, subsequent encounter Abrasion, right foot, initial encounter 06/07/19 25 Skin ulcer of left foot, wit h fat layer exposed ([facility] V24, [facility] V28) 06/06/2024 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 (CODE) ([facility] V24, [facility] V28) 06/06/2024 Non-pressure chronic ulcer o f other part of right lower leg with fat layer exposed ([facility] V24, [facility] V28) 05/23/2024 Skin ulcer of knee, right, l imited to breakdown of skin ([facility] V24, [facility] V28) 05/23/2024 Abrasion of right knee 05/16/2024 Chronic venous hypertension (idiopathic) with ulcer of right lower extremity (CODE) ([facility] V24, [facility] V28) 05/16/2024 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 with fat layer exposed ([facility] V24, [facility] V28) 05/16/2024 Abrasion, left knee, initial encounter 5 Skin ulcer of right knee wit h fat layer exposed ([facility] V24, [facility] V28) 05/16/2024 Skin ulcer of left knee with fat layer exposed ([facility] V24, [facility] V28) 05/16/2024 Hypertension 12/24/2023 Assessment & Plan [...] Continue conservative therapy with aspirin Parkinson disease ([facility] V24, [facility] V28) 07/2021 Chronic diastolic heart failure ([facility] V24, [facility] S[facility] V28) 07/24/2021 Overview (12/24/2023): Last Assessment & [...] of thyroid gl and metastatic to bone ([facility] V24, [facility] V28) 10/09/2018 Pelvic fracture ([facility] V24, [facility] V28) 05/31 Overview (12/24/2023): 05/30 right pubic ramus Elevated alkaline phosphatase measurement 2017 Intra-abdominal tumor 08/27/2016 Overview (12/24/2023): He initially presented to [facility] on 08/26/16 with abdominal pain [...] his next office visit. Restless leg 05/10/2011 Resolved Problems Problem Noted Date Diagnosed Date Resolved Date Pure hypercholesterolemia 12/24/2023 Encounters Date Type Department Care Team Description 01/07/[address] [facility] Hematology Oncology [address] [place] [phone] Trupti Gonzalez DO 01/01/2025 3:00 PM EDT Office Visit [facility] [address] [facility] [address] [place] [phone] Felipa Dai MD Hypersalivation (Primary Dx); Secondary malignant neoplasm of pleura (CMS/HCC V24, CMS/HCC V28); Chronic bronchitis, unspecified chronic bronchitis type (CMS/HCC V24, CMS/HCC V28) 12/12/2024 Telephone [facility] Cardiology [facility] [address] [facility] [address] [place] [phone] Lashay England NP 12/11/2024 Telephone [facility] Cardiology [facility] [address] [facility] [address] [place] [phone] Porfirio Malone MD 10/30/2024 11:45 AM EDT Office Visit 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 ([facility] V24, [facility] V28) (Primary Dx) 10/25/2024 10:00 AM EDT Office Visit Internal Medicine [facility] [address] [facility] [address] [place] [phone] Huber Madera NP Encounter for staple removal (Primary Dx); Injury of head, subsequent encounter; Parkinson's disease with dyskinesia, unspecified whether manifestations fluctuate ([facility] V24, [facility] V28); Dysphagia, unspecified type; Weight loss; Generalized weakness; At high risk for falls 10/22/2024 Telephone Internal Medicine [facility] [address] [facility] [address] [place] [phone] Felipa Dai MD 10/17/2024 9:10 AM EDT Office Visit [facility] [address] [facility] [address] [place] [phone] Lashay England NP Hypertension, unspecified type (Primary Dx); Pure hypercholesterolemia; Diastolic dysfunction; Atherosclerosis 10/17/2024 Telephone [facility] [address] [facility] [address] [place] [phone] Charo Aceves MA 10/15/2024 Telephone Internal Medicine [facility] [address] [facility] [address] [place] [phone] Felipa Dai MD 10/11/2024 11:27 AM EDT - 10/11/2024 11:59 PM EDT Hospital Encounter 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 ([facility] V24, [facility] V28) Discharge Disposition: Home or Self Care from Last 3 Months Immunizations Immunization Administration Dates Next Due H1N1 Inj Preservative Free 05/13/2009 Influenza trivalent, 0.5mL ( Fluzone High-dose) 65yo and older 01/04/2018 Influenza trivalent, with pr eservative (Fluzone; Afluria) 6mo and older 02/12/2014,11/29/2011,02/16/2011,01/12,02/22/2009,12/13/2007,01/09/2007 Pfizer (ages 12 & older) RYLIE S-CoV-2 COVID-19, mRNA, LNP-S, herrera-sucrose, preservative free 08/18/2021 Pneumococcal polysaccharide 23 valent (Pneumovax 23) 2yo and older 03/14/2006,01/12/2002 Td Tetanus diptheria (Tdvax) 7yo and older 09/15/2010 Zoster Live 11/30/2011 Surgical History Surgery Date Site/Laterality Comments THYROID SURGERY PROCEDURE:THYROID SURGERY GALLBLADDER SURGERY Medical History Medical History Date Comments Parkinson disease ([facility] V 24, [facility] V28) DX:Parkinson disease ([facility]) CHF (congestive heart failur e) ([facility] V24, [facility] V28) DX:CHF (congestive heart judith lure) ([facility]) Hypertension DX:Hypertension Hypothyroidism DX:Hypothyroidis m Social History Tobacco Use Types Packs/Day Years Used Date Smoking Tobacco: Never Smokeless Tobacco: Never Tobacco Cessation:Counseling Given: Not Answered Alcohol Use Standard Drinks/Week Comments Never 0 (1 standard drink = 0.6 oz pur e alcohol) Sex and Gender Information Value Date Recorded Sex Assigned at Male 04/24/2024 10:06 AM EST Legal Sex Male 1:18 PM EST Gender Identity Male 04/24/2024 10:06 AM EST Sexual Orientation Straight 04/24/2024 10 :06 AM EST Obstetrics History Last Filed Vital Signs Vital Sign Reading Time Taken Comments Blood Pressure 139/76 01/01/2025 2:30 PM EDT Pulse 84 01/01/2025 2:30 PM EDT Temperature 36.2 C (97.2 F) 01/01/2025 2:30 PM EDT Respiratory Rate 18 01/01/2025 2:30 PM EDT Oxygen Saturation 96% 01/01/2025 2:30 PM EDT Inhaled Oxygen Concentration - - Weight 59.9 kg (132 lb) 01/01/2025 2:30 PM EDT Height 162.6 cm (5' 4 ) 01/01/2025 2:30 PM EDT Body Mass Index 22.66 01/01/2025 2:30 PM EDT Plan of Treatment Upcoming Encounters Date Type Department Care Team (Late st Contact Info) Description 01/15/2025 10:[address] [facility] CT Scan [address] [place] [phone] 01/23/2025 11:00 AM EST Office Visit [facility] Hematology Oncology [address] [place] [phone] Sheryl Chappell PA [address] [place] [address] 02/22/2025 11:[address] [facility] [address] [facility] 2nd [place] [phone] 03/21/2025 8:45 AM EST Office Visit [facility] [address] [facility] [address] [place] [phone] Felipa Dai MD [address] [place] [phone] 04/23/2025 1:30 PM EST Office Visit [facility] [address] [facility] [address] [place] [phone] Porfirio Malone MD [address] [place] [address] Dr [place] [place] [phone] 08/29/2025 11:30 AM EDT Office Visit Vascular Surgery - [facility] [address] [facility] [address] [place] [phone] Arleth Silveira MD [address] [place] [phone] Health Maintenance Due Date Last Done Comments RSV Immunization Adult Patients (1 - 1-dose 75+ series) 06/04/2015 Social Influencers of Health Screening 02/19/2022 Depression Screening 03/14/2024 COVID-19 Vaccine ( season) 2024 02/01/2023, 03/16/2022, 08/18/2021, Additional history exists Influenza Vaccine (#1) 2024 , 12/18/2021, 12/24/2020, Additional history exists Medicare Annual Wellness Visit 02/19/2025 02/20/2024 Cholesterol Screening (Lipid Panel) 05/07/2025 05/07/2020 Falls Risk Assessment 08/23/2025 08/23/2024 , 02/20/2024, 09/02/2023 Hypertension/CHF/CAD Annual BMP Blood Test 01/08/2026 01/08/2025, 11/20/2024, 10/10/2024, Additional history exists DTaP,Tdap,and Td Vaccines (4 - Td or Tdap) 10/19/2034 10/19/2024, 09/12/2012, 09/15/2010 Zoster Vaccines Completed 08/08/2019, 02/13, 11/30/2011 Pneumococcal Vaccine: 50+ Years Completed 12/06/2019, 06/04/2014, 03/14/2006, Additional history exists HIB Vaccines Aged Out No longer eligi ble based on patient's age to complete this topic HPV Vaccines Aged Out No longer eligi ble based on patient's age to complete this topic Hepatitis A Vaccines Aged Out No long er eligible based on patient's age to complete this topic Hepatitis B Vaccines Aged Out No long er eligible based on patient's age to complete this topic IPV Vaccines Aged Out No longer eligi ble based on patient's age to complete this topic MMR Vaccines Aged Out No longer eligi ble based on patient's age to complete this topic Meningococcal ACWY Vaccine Aged Out N o longer eligible based on patient's age to complete this topic Meningococcal B Vaccine Aged Out No l onger eligible based on patient's age to complete this topic RSV Immunization Patients Under 20 months Aged Out No longer eligible based on patient's age to complete this topic Varicella Vaccines Aged Out No longer eligible based on patient's age to complete this topic Goals Goal Patient Goal Type Associated Problems Recent Progress Patient-Stated? Author Wound volume breakdown reduced by X% by week 4 Care Plan Impaired Tissue No Charu Burks [employer] f[employer] volume breakdown reduced by X% by week 8 Care Plan Impaired Tissue No Charu Burks RN Wound volume breakdown reduced by X% by week 12 Care Plan Impaired Tissue No Charu Burks RN Quit using tobacco (cigarettes, smokeless, etc) Care Plan Education needed on impact of smoking on wound Charu Amador RN Reduce tobacco use (cigarettes, smokeless, etc) Care Plan Education needed on impact of smoking on wound No Charu Burks RN Decrease Wound Volume by X% by date (in notes) Care Plan Education needed on impact of smoking on wound Charu Amador RN Patient and Caregiver Understand Wound Care Education Care Plan Education needed related to ulceration/compr omised skin integrity. 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 (CMS/HCC V24, CMS/HCC V28) SPECIMEN STATUS REPORT Routine 10:28 AM EDT BASIC METABOLIC PANEL Routine 11/20/2024 10:28 AM EDT EXTERNAL CLINICAL LAB Routine 11/09/2024 9:16 AM EDT ECG 12-LEAD Routine 10/17/2024 4:28 PM EDT Hypertension, unspecified type CT NECK SOFT TISSUE W CONTRAST Routine 10/11/2024 12:10 PM EDT 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 (CMS/HCC V24, CMS/HCC V28) CBC WITH AUTO DIFFERENTIAL Routine 10/10/2024 1:30 PM EDT 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 (CMS/HCC V24, CMS/HCC V28) COMPREHENSIVE METABOLIC PANEL Routine 10/10/2024 1:30 PM EDT 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 WBC 7.0 4.8 - 10.8 K/mcL LAB [facility] RBC 4.30(L) 4.50 - 5.50 M/mcL LAB HEMETOLOGY METHOD 01/08/2025 4:48 PM EDT [facility] Hemoglobin 11.7(L) 13.5 - 17.5 g/dL LAB HEMETOLOGY METHOD 01/08/2025 4:48 PM [facility] Hematocrit 36.6(L) 42.0 - 54.0 % LAB HEMETOLOGY METHOD 01/08/2025 4:48 PM EDT [facility] MCV 84.9 79.0 - 98.0 FL LAB HEMETOLOGY METHOD 01/08/2025 4:48 PM [facility] MCH 27.1 27.0 - 32.0 pcg LAB HEMETOLOGY METHOD 01/08/2025 4:48 PM [facility] MCHC 32.0 32.0 - 37.0 g/dL LAB HEMETOLOGY METHOD 01/08/2025 4:48 PM EDT [facility] RDW 14.0 11.0 - 15.0 % LAB HEMETOLOGY METHOD 01/08[facility]2025 4[facility] Platelets 301 130 - 400 K/mcL LAB HEMETOLOGY METHOD 01/08/2025 4:48 PM T [facility] MPV 9.9 7.0 - 11.0 FL LAB HEMETOLOGY METHOD 01/08/2025 4:48 PM EDT [facility] NRBC 0.0 <1.0 % LAB HEMETOLOGY METHOD 01/08/2025 4:48 PM [facility] NRBC Absolute 0.00 <0.10 K/mcL LAB HEMETOLOGY METHOD 01/08/2025 4:48 PM [facility] Neutrophils Relative 70.9 % LAB HEMETOLOGY METHOD 01/08/2025 4:48 PM [facility] Lymphocytes Relative 15.4 % LAB HEMETOLOGY METHOD 01/08/2025 4:48 PM [facility] Monocytes Relative 10.0 % LAB HEMETOLOGY METHOD 01/08/2025 4:48 PM [facility] Eosinophils Relative 2.7 % LAB HEMETOLOGY METHOD 01/08/2025 4:48 PM [facility] Basophils Relative 0.6 % LAB HEMETOLOGY METHOD 01/08/2025 4:48 PM [facility] Immature Granulocytes Relative 0.4 % LAB HEMETOLOGY METHOD 01/08/2025 4:48 PM [facility] Neutrophils Absolute 4.97 1.50 - 7.00 K/mcL LAB HEMETOLOGY METHOD [facility]25 [facility] Lymphocytes Absolute 1.08 1.00 - 5.00 K/mcL LAB HEMETOLOGY METHOD 01/08/2025 4:48 PM EDT [facility] Monocytes Absolute 0.70 0.20 - 1.00 K/[facility] LAB HEMETOLOGY METHOD 01/08/2025 4:48 PM EDT [facility] Eosinophils Absolute 0.19 0.00 - 0.50 K/[facility] LAB HEMETOLOGY METHOD 01/08/2025 4:48 PM EDT [facility] Basophils Absolute 0.04 0.00 - 0.20 K/[facility] LAB HEMETOLOGY METHOD 01/08/2025 4:48 PM EDT [facility] Immature Granulocytes Absolute 0.03 0.00 - 0.03 K/[facility] LAB HEMETOLOGY METHOD 01/08/2025 4:48 PM EDT [facility] Blood Venous blood specimen / Unknown Venipuncture / Unknown 01/08/2025 2:24 PM EDT 01/08/2025 4:38 PM EDT us Trupti Gonzalez DO LAB BLOOD ORDERABLES Final Result [facility] [address] [place] [address], [place] [phone] * Comprehensive metabolic panel (01/08/2025 2:24 PM EDT) Only the most recent of2 resultswithin the time period is included. Sodium 141 133 - 145 mmol/L LAB CHEMISTRY METHOD 01/08/2025 5:04 PM EDT [facility] Potassium 4.1 3.5 - 5.5 mmol/L LAB CHEMISTRY METHOD 01/08/2025 5:04 PM EDT [facility] Chloride 105 96 - 110 mmol/L LAB CHEMISTRY METHOD 01/08/2025 5:04 PM EDT [facility] CO2 32 21 - 32 mmol/L LAB CHEMISTRY METHOD 01/08/2025 5:04 PM [facility] Anion Gap 4 3 - 11 LAB CHEMISTRY METHOD 01/08/2025 5:04 PM [facility] Glucose 83 70 - 100 mg/dL LAB CHEMISTRY METHOD 01/08/2025 5:04 PM [facility] BUN 25 5 - 25 mg/dL LAB CHEMISTRY METHOD 01/08/2025 5:04 PM [facility] Creatinine 1.02 0.70 - 1.30 mg/dL LAB CHEMISTRY METHOD 01/08/2025 5:04 PM [facility] eGFR 72 >=60 mL/min/1. 73m2 LAB CHEMISTRY METHOD 01/08/2025 5:04 PM [facility] Comment:Calculation based on the Chronic Kidney Disease Epidemiology Collaboration (CKD-EPI) equation refit without adjustment for race. BUN/Creatinine Ratio 24.5 LAB CHEMISTRY METHOD 01/08/2025 5:04 PM [facility] Calcium 9.1 8.5 - 10.5 mg/dL LAB CHEMISTRY METHOD 01/08/2025 5:04 PM [facility] AST (SGOT) 16 10 - 42 unit/L LAB CHEMISTRY METHOD 01/08/2025 5:04 PM [facility] ALT (SGPT) 12 10 - 60 unit/L LAB CHEMISTRY METHOD 01/08/2025 5:04 PM [facility] Alkaline Phosphatase 95 42 - 121 unit/L LAB CHEMISTRY METHOD 01/08/2025 5:04 PM [facility] Total Protein 7.0 6.0 - 8.0 g/dL LAB CHEMISTRY METHOD 01/08/2025 5:04 PM [facility] Albumin 3.6 3.2 - 5.0 g/dL LAB CHEMISTRY METHOD 01/08/2025 5:04 PM [facility] Total Bilirubin 0.5 0.0 - 1.4 mg/dL LAB CHEMISTRY METHOD 01/08/2025 5:04 PM EDT [facility] Blood Venous blood specimen / Unknown Venipuncture / Unknown 01/08/2025 2:24 PM EDT 01/08/2025 4:36 PM EDT Trupti Jaramillouliffe LAB BLOOD ORDERABLES Final Result Performing Organization Address City/[facility]/ZIP Co de Phone Number [facility] [address] [place] [address], [place] [phone] * SPECIMEN STATUS REPORT (11/20/2024 10:28 AM EDT) Specimen Status Report Comment [facility] 1 Comment: Shirley Abbrev BMP8 Default Ambfranci Abbrev BMP8 Default A hand-written panel/profile was received from your office. In accordance with the [facility] Ambiguous Test Code Policy dated September 2002, we have completed your order by using the closest currently or formerly recognized AMA panel. We have assigned Basic Metabolic Panel (8), Test Code #089489 to this request. If this is not the testing you wished to receive on this specimen, please contact the [facility] Client Inquiry/Technical Services Department to clarify the test order. We appreciate your business. 11/20/2024 10:2 8 AM EDT 11/20/2024 Narrative [facility] 1 - 11/21/2024 4:06 AM EDT Performed at: [address] [place] [id number] Tower Erector Helper: Marquita Singh MD, Phone: [phone] us Lashay England INDUSTRIAL SALES MANAGER LAB BLOOD ORDERABLES Final Resu lt [facility] 1 * (ABNORMAL) Basic metabolic panel (11/20/2024 10:28 AM EDT) Glucose 83 70 - 99 mg/dL [facility] Blood Urea Nitrogen (BUN) 27 8 - 27 mg/dL [facility] Creatinine 0.76 0.76 - 1.27 mg/dL [facility] 1 eGFR 89 >59 mL/min/1.7 3 [facility] 1 BUN/Creatinine Ratio 36(H) 10 - 24 [facility] 1 Sodium 141 134 - 144 mmol/L [facility] Potassium 4.2 3.5 - 5.2 mmol/L [facility] 1 Chloride 102 96 - 106 mmol/L [facility] 1 Carbon Dioxide 22 20 - 29 mmol/L [facility] 1 Calcium 9.1 8.6 - 10.2 mg/dL [facility] 1 11/20/2024 10:2 8 AM EDT 11/20/2024 Narrative [facility] 1 - 11/21/2024 4:06 AM EDT Performed at: [address] [place] [id number] Tower Erector Helper: Marquita Singh MD, Phone: [phone] Lashay England NP LAB BLOOD ORDERABLES Final Resu lt [facility] * External clinical lab (11/09/2024 9:16 AM EDT) Historical Provider LAB BLOOD ORDERABLES Liv l Result * ECG 12 lead (10/17/2024 4:28 PM EDT) [facility] Ventricular Rate ECG 69 BPM GEMUSE Atrial Rate 69 BPM GEMUSE P-R Interval 174 ms GEMUSE QRS Duration 92 ms GEMUSE Q-T Interval 416 ms GEMUSE QTc 445 ms GEMUSE P Wave Thomas 76 degrees GEMUSE R Thomas 36 degrees GEMUSE T Thomas -28 degrees GEMUSE ECG Interpretation Normal sinus rhythm Possible Left atrial enlargement ST and T wave abnormality, consider inferolateral ischemia Abnormal ECG similar to prior Confirmed by MD Faisal, Porfirio ([id number]) on 10/22/2024 2:00:32 PM GEMUSE 10/17/2024 8:57 AM EDT 10/22/2024 2:00 PM EDT Lashay Tomás INDUSTRIAL SALES MANAGER ECG ORDERABLES Edited Result - Final GEMUSE * CT Neck Soft Tissue w Contrast (10/11/2024 12:10 PM EDT) Anatomical Region Laterality Modality Head and Neck Computed Tomogra phy 10/17/2024 7:51 AM EDT Impressions 10/17/2024 8:03 AM EDT Markedly limited study. Severe positional abnormalities. No neck mass which might account for stridor. Pulmonary metastasis. -------- FINAL REPORT -------- Dictated By: Chip Carlson Dictated Date: 10/17/2024 07:51 ET Assigned Physician: Chip Carlson Reviewed and Electronically Signed By: Chip Carlson Signed Date: 10/17/2024 08:03 ET Workstation ID: [id number] Transcribed By: Self Edit Transcribed Date: 10/17/2024 07:51 ET Narrative 10/17/2024 8:03 AM EDT EXAMINATION: CT NECK WITH CONTRAST CLINICAL INFORMATION: Neck pain. Thyroid cancer. Abnormal scan at outside facility COMPARISON: The most recent previous neck CT available is 06/27/23. TECHNIQUE: Multidetector CT. Examination of the neck. Examination of the neck following the IV administration of nonionic contrast. Reformatting in the coronal and sagittal planes. DLP: 379 mGy-cm Dose optimization was performed including the use of low-dose iterative reconstruction technique with automatic exposure control based on patient size. Type of contrast: ISOVUE 370 Volume of IV contrast: 90 mL Volume of contrast discarded: 0 mL FINDINGS: The study is markedly limited by patient positioning. There is severe kyphosis in the head and neck are tilted to the right and overlie the upper chest. This results in nonstandard imaging planes. Visualized portions of the brain: No suspicious abnormality Visualized portions of the orbits: The orbits are not included. Visualized portions of the airways: The nasopharynx and oropharynx are patent. The epiglottis is not enlarged. The piriform sinuses are distended. The level of vocal cords appear symmetric. No definite mass at the level of the larynx. The subglottic trachea is patent. The mainstem bronchi are patent. Visualized paranasal sinuses: Only a small area included. No definite abnormality. Infratemporal fossa and parapharyngeal tissue planes: Not well included. Dental metal artifact limits assessment. Salivary and thyroid: No large mass in the region of the parotid glands. No large mass in the expected region of the submandibular glands. The thyroid is not well visualized. No mass in the expected region of the thyroid. Lymph nodes: No measurably enlarged lymph nodes. Vascular: The internal jugular veins appear patent. There is no aneurysm demonstrated. There are calcified plaques in the region of the carotid bifurcations. Visualized spine: There is severe kyphosis. There are degenerative changes. There appears to be anterolisthesis of C4 relative to C5. Visualized mediastinum and apex of the chest: There are multiple pulmonary nodules in the right lung. There is some pleural fluid partially included. There are at least some nodules in the left upper lobe. Other: No suspicious additional findings. Procedure Note Chip Carlson MD - 10/17/2024 EXAMINATION: CT NECK WITH CONTRAST CLINICAL INFORMATION: Neck pain. Thyroid cancer. Abnormal scan at outside facility COMPARISON: The most recent previous neck CT available is 06/27/23. TECHNIQUE: Multidetector CT. Examination of the neck. Examination of the neck following the IV administration of nonioniccontrast. Reformatting in the coronal and sagittal planes. DLP: 379 mGy-cm Dose optimization was performed including the use of low-dose iterativereconstruction technique with automatic exposure control based on patientsize. Type of contrast: ISOVUE 370 Volume of IV contrast: 90 mL Volume of contrast discarded: 0 mL FINDINGS: The study is markedly limited by patient positioning. There is severekyphosis in the head and neck are tilted to the right and overlie theupper chest. This results in nonstandard imaging planes. Visualized portions of the brain: No suspicious abnormality Visualized portions of the orbits: The orbits are not included. Visualized portions of the airways: The nasopharynx and oropharynx arepatent. The epiglottis is not enlarged. The piriform sinuses aredistended. The level of vocal cords appear symmetric. No definite mass atthe level of the larynx. The subglottic trachea is patent. The mainstembronchi are patent. Visualized paranasal sinuses: Only a small area included. No definiteabnormality. Infratemporal fossa and parapharyngeal tissue planes: Not well included.Dental metal artifact limits assessment. Salivary and thyroid: No large mass in the region of the parotid glands.No large mass in the expected region of the submandibular glands. The thyroid is not well visualized. No mass in the expected region of thethyroid. Lymph nodes: No measurably enlarged lymph nodes. Vascular: The internal jugular veins appear patent. There is no aneurysmdemonstrated. There are calcified plaques in the region of the carotidbifurcations. Visualized spine: There is severe kyphosis. There are degenerativechanges. There appears to be anterolisthesis of C4 relative to C5. Visualized mediastinum and apex of the chest: There are multiplepulmonary nodules in the right lung. There is some pleural fluid partiallyincluded. There are at least some nodules in the left upper lobe. Other: No suspicious additional findings. IMPRESSION: Markedly limited study. Severe positional abnormalities. No neck mass which might account for stridor. Pulmonary metastasis. -------- FINAL REPORT -------- Dictated By: Chip Carlson Dictated Date: 10/17/2024 07:51 ET Assigned Physician: Chip Carlson Reviewed and Electronically Signed By: Chip Carlson Signed Date: 10/17/2024 08:03 ET Workstation ID: [id number] Transcribed By: Self Edit Transcribed Date: 10/17/2024 07:51 ET Trupti Gonzalez DO IMG CT PROCEDURES Fin al Result * Falls Risk Assessment (09/02/2023) [facility] Falls Risk Assessment ABSTRACTED Historical Provider HEALTH MAINTENANCE Final Result * (ABNORMAL) Lipid panel (05/07/2020) [facility] LDL/HDL Ratio 4 0 - 4 Triglycerides 189(A) 0 - 150 mg/dL Cholesterol 191 0 - 200 mg/dL HDL 43 >=40 mg/dL LDL Cholesterol 111(A) 0 - 100 mg/dL Blood Venous blood specimen / Unknown Historical Provider LAB BLOOD ORDERABLES Liv l Result from Last 3 Months or Most Recently Relevant to Health Maintenance Additional Health Concerns Active Problems Noted Date Diagnosed Date Impaired Tissue 05/16/2024 Education needed on impact of smoking on wound 0 05/16/2024 Education needed related to ulceration/compromised skin integrity. 05/16/2024 Insurance MEDICARE [facility] [address] [place] [address] Care Teams Automotive Machinist Apprentice Relationship Specialty Start Date End Date Felipa Dai MD [address] [facility] [address] [place] [address] PCP - General 07/12/23
--- OUTSIDE RECORDS SUMMARY | 2025-01-10 22:45 | XMS_ITS | Patient Health Record ---
[facility] Organization [facility] [place] Address [address] [facility] [place] [address] Care Team Providers Care Project Management Advisor Name Role Phone Malaika MEYERS, [facility] Primary Care Provider Radha Mason Unavailable [phone] Allergies Allergen (clinical drug ingredient) Drug/Non Drug Allergy documented on EMR Reaction Allergy Type Onset Date Status fluorouracil Fluorouracil hives Drug Allergy A ctive Oxybutynin Unknown Drug Allergy Active mirabegron Myrbetriq Unknown Drug Allergy Active Morphine and Related Unknown Drug Allergy Active Reason For Referral No Information Medications Medication SIG (Take, Route, Frequency, Duration) Notes Start Date End Date Status Magnesium Citrate Ac tive Coenzyme Q10 Active Calcium 600 MG 1 tablet with meals Orally Twice a day; Duration: 30 day(s) Active Probiotic Active Levothyroxine Sodium 75 MCG 1 tablet in the morning on an empty stomach Orally Once a day; Duration: 30 day(s) Active Astaxanthin Bioastin 12mg Acti ve Melatonin 3 MG 1 tablet at bedtime as needed Orally Once a day; Duration: 30 day(s) Active Vitamin D 50 MCG (1999) 1 tablet Orally Once a day; Duration: 30 day(s) Active Pregabalin 50 MG 1 capsule Orally Twice a day Not-Taking PreserVision AREDS A ctive Glycopyrrolate 1 MG 1 tablet Orally Once a day; Duration: 30 day(s) Active Aspirin 81 MG 1 tablet Orally Once a day; Duration: 30 day(s) Active Flomax Active Zinc 30 MG 1 tablet Orally Once a day; Duration: 30 day(s) Active Simvastatin 20 MG 1 tablet in the evening Orally Once a day Active Multivitamin Active Pramipexole Dihydrochloride 0.25 MG 1 tablet Orally Once a day; Duration: 30 day(s) Active B-Complex Active Selegiline HCl 5 MG 1 tablet with breakfast and lunch Orally Twice a day; Duration: 30 day(s) Active Prostate Active Carbidopa-Levodopa 25-100 MG 1 tablet as needed Orally Two times a Week; Duration: 30 day(s) Active Omeprazole 20 MG 1 capsule 30 minutes before morning meal Orally Once a day; Duration: 30 day(s) Active Immunizations Vaccine Route Administration Date Status Comme nts Influenza Unknown 11/13/2023 Administered COVID-19 Pfizer BioNTech Vaccine Unknown 08/18/2021 Administered 1st Dose: 04/02/2020 2nd Dose: 04/30/2020 3rd Dose: 01/27/2021 Social History Tobacco Use: Social History Observation Description Date Details (start date - stop date) Never Smoker NA - NA Tobacco use other than smoking: Question Answer Notes Are you an other tobacco user? No Tobacco Control (Standard) Question Answer Notes Tobacco use: Nonsmoker Additional Findings: Tobacco non-user Current no nsmoker AUDIT-C (Standard) Question Answer Notes Did you have a drink containing alcohol in the p ast year? No Points 0 Interpretation Negative Problems Problem Type SNOMED Code ICD Code Onset Dates Problem Status W/U Status Risk Notes Problem Neuropathy (376685593) Neuropathy (G62.9) Active confirmed Problem Bilateral atherosclerosis of arteries of lower limbs (disorder) (07341740139396099 ) Atherosclerosis of artery of both lower extremities (I70.203) Active confirmed Vital Signs Blood pressure diastolic 65 mm Hg 12/21/2024 Height 5 ft 4 in in 12/21/2024 Blood pressure systolic 122 mm Hg 12/21/2024 Weight 133 lbs 12/21/2024 BMI 22.83 kg/m2 12/21/2024 Encounters Encounter [facility] Date [facility] [address] [facility]/12/[facility] Radha Schreiber Atherosclerosis of artery of both lower extremities I70.203 ; Edema, lower extremity R60.0 ; Pain in toe of left foot M79.675 ; Pain in toe of right foot M79.674 and Tinea unguium B35.1 [facility] [address] 12/21/2024 Radha Schreiber Atherosclerosis of artery of both lower extremities I70.203 ; Edema, lower extremity R60.0 ; Pain in toe of left foot M79.675 ; Pain in toe of right foot M79.674 and Tinea unguium B35.1 Assessments Encounter Date Diagnosis (ICD Code) Assessment Notes Treatment Notes Treatment Clinical Notes Section Notes 09/12/2024 Atherosclerosis of artery of both lower extremities (ICD-10 - I70.203) 09/12/2024 Edema, lower extremity (ICD-10 - R60.0) 12/21/2024 Atherosclerosis of artery of both lower extremities (ICD-10 - I70.203) 12/21/2024 Edema, lower extremity (ICD-10 - R60.0) 12/21/2024 Pain in toe of left foot (ICD-10 - M79.675) 09/12/2024 Pain in toe of left foot (ICD-10 - M79.675) 09/12/2024 Pain in toe of right foot (ICD-10 - M79.674) 12/21/2024 Pain in toe of right foot (ICD-10 - M79.674) 12/21/2024 Tinea unguium (ICD-10 - B35.1) 09/12/2024 Tinea unguium (ICD-10 - B35.1) 12/21/2024 Other Plan Of Treatment Pending Test Test Name Order Date X ray : Foot, right 3V 09/17/2022 Next Appt Details Provider Name:Radha mann, 03/26/2025 11:30:00 AM, [address] [place], [address], Insurance Providers Payer Name Payer Address Payer Phone Subscriber Number Group Number Insured Name Patient Relationship to Insured Coverage Start Date Coverage End Date Medicare National [employer] [address] [place] [address] [id number] Simeon Rodriguez Self - patient is the insured [facility] [address] [facility] [place] [address] [id number] Simeon Rodriguez Self - patient is the insured Medical (General) History Medical History History ICD Code Cancer Gall bladder problems High blood pressure Numbness Parkinsons disease Measles Mumps Chicken pox Surgical History Surgery Date(Month/Year) Back L4-5 left 08/05/1993 Back L3-L4 right 07/09/2005 gall bladder removal 09/08/2016 gall stones 07/22/2017 Back L5 right 01/18/2020 Thyroid removal 08/17/2018 Hospitalization History Reason Date(Month/Year) [facility] and [facility] his head 10/2024 [facility]- shortness of breath 09/05 3 Fracture Ribs/ [facility] 03/16/22
--- OUTSIDE RECORDS SUMMARY | 2025-01-10 22:45 | XMS_ITS | Encounter Summary ---
Author Organization [facility] Address [facility] [employer] [address] [address] Phone Care Team Providers Care Sales And Retail Management Recruiter Name Role Phone Joann Lebron MD Primary Care Provider Yaakov Cuenca MD Unavailable [phone] Vicente Simons MD Unavailable [phone] Anjel Maldonado MD Unavailable [phone] Yahir Rodrigues MD Unavailable [phone] Kanika Carver MD Unavailable [phone] Cristiana Clement MD Unavailable Goyo Lyle MD Unavailable [phone] Isacc Phoenix MD Unavailable Trupti Gonzalez DO Unavailable Encounter Details Date Type Department Care Team (Late st Contact Info) Description 07/31/2018 Procedure Pass DF IMG OUTSIDE IMG [address] [place], [place] [id number] Social History Tobacco Use Types Packs/Day Years [...] on filedocumented in this encounter Care Teams Sales And Retail Management Recruiter Relationship Specialty Start Date End Date Joann Lebron MD PCP - General Internal Medicine 07/24/18 Yaakov Cuenca MD [address] [place] [phone] [email or web address] Referring Physician Internal Medicine 07/24/18 Vicente Simons MD [address] [place] [address] Neurosurgeon Psychiatry 07/31/18 Anjel Maldonado MD [address] [place] [address] Neurosurgeon Neurology 07/31/18 Yahir Rodrigues MD [address] [place] [address] Stone Planer Endocrinology 08/31/18 07/19/21 Kanika Carver MD [address] [place] [address] [email or web address] Primary Oncologist Medical Oncology 09/07/18 07/16/21 Cristiana Clement MD [address] [place] [phone] [email or web address] [email or web address] Oncology 09/07/18 Goyo Lyle MD [address] [place] [address], MRB [address] [place] [address] [email or web address] Primary Oncologist Medical Oncology 07/17/21 Isacc Phoenix MD [address] [place] [address] [place] [address] Stone Planer Endocrinology 07/20/21 Trupti Gonzalez DO [address] [place] [address] Primary Oncologist Internal Medicine 07/19/22 documented as of this encounter Additional Source Comments The information contained in this document represents components of the legal health record. It is not the complete legal health record.[facility]
[2025-01-10 23:22] VITALS: BP 159/68; PULSE 97; RESP 14; TEMP 36.6; O2SAT 98
[2025-01-10 23:35] LABS: Appearance Urine Clear; Glucose Urine UA Negative (Negative); PH 5.5 (5.0-9.0); Specific Gravity - Urine 1.025 (1.005-1.025); UMIC TRIGGER UACC YES
[2025-01-10 23:44] LABS: Cannabinoid Screen Urine Not Detected (Not Detect)
--- NOTE | 2025-01-11 00:05 | PC.NURSE ---
Addendum entered by Zofia Santoyo RN 01/11/25 01:33: pt tried to get up from stretcher- portable bed alarm placed- attached to stretcher and pt. Original Note: pt stated he had to go number 2. Tech placed pt on bed pain. Pt was able to produce BM & urine. Pt did have some noticeable constipation. UA lab sent. pt was cleaned, home pullup put on pt. pt repositioned. respirations even and unlabored. no apparent distress. bed at lowest position, call wong at side. Able to make needs known.
--- NOTE | 2025-01-11 01:37 | HO.NURTONUR ---
Addendum entered by Zofia Santoyo RN 01/11/25 06:03: RN was able to speak to over the phone- she is conflicted on plan for pt. RN educated her in regards to pt/cm consult vs rehab. verbalized understanding. stated she will be coming in to discuss with pt & provider what is the best plan for this pt. RN informed MD. Addendum entered by Zofia Santoyo RN 01/11/25 05:49: RN attempted to call pts again- unsuccessful. Original Note: Per MD, RN called to discuss posisble discharge plan. did not sweet pickle maker. RN left voicemail with callback #.
[2025-01-11 06:35] VITALS: BP 159/72; PULSE 97; RESP 16; O2SAT 98
--- NOTE | 2025-01-11 07:01 | PC.NURSE ---
report given to RN in overflow.
--- NOTE | 2025-01-11 11:04 | MHC.CM.PN ---
Addendum entered by Eve Oh 01/11/25 16:07: CM SPOKE TO PTS DAUGHTER, TREVON, WHO UNDERSTANDS STR WILL NOT BE COVERED BY VA OR MEDICARE SHE IS AGREEABLE TO ACUTE REFERRALS BEING MADE AND UNDERSTANDS PLANS FOR DC HOME WILL BE NEEDED IF HE CANNOT QUALIFY SHE ASKS THAT SHE BE UPDATED WITH OUTCOMES PTS /PRIMARY HCP, TRACY, IS AT BEDSIDE, BUT APPEARS OVERWHELMED AND UNABLE TO UNDERSTAND EVERYTHING BEING EXPLAINED Addendum entered by Eve Oh 01/11/25 15:25: CM SPOKE TO [facility] [place], PT DOES NOT HAVE A REHAB BENEFIT. Addendum entered by Eve Oh 01/11/25 13:18: PRIYANKA PONCE AND YOANA KWONG ARE OFFERING PENDING VA AUTH THE VA HAS NOT RETURNED CALLS Addendum entered by Eve Oh 01/11/25 12:37: CM MET WITH PTS AT BEDSIDE SHE SAYS SHE IS WORRIED ABOUT PTS MENTATION AND BELIEVES IT IS BECAUSE HE HAS NOT HAD HIS MEDS SHE WILL GO HOME TO GET A COMPLETE MED LIST SHE SAYS SHE IS NOW CONSIDERING STR FOR PT REFERRALS WERE MADE TO [facility] CONTRACTED SNFS A MESSAGE WAS LEFT FOR [facility] [place] TO CONFIRM BENEFITS/INITIATE AUTH Original Note: CM ATTEMPTED TO CONTACT PTS /PRIMARY HCP, TRACY [phone], TO DISCUSS CONCERNS/DCP. NO ANSWER, CM WILL TRY AGAIN SOON. PER NOTES, PTS DID NOT WANT HIM TO GO TO STR, CM WILL CONFIRM ONCE CONTACT IS MADE.
[2025-01-11 11:29] VITALS: BP 159/72; PULSE 97; O2SAT 98
--- NOTE | 2025-01-11 12:00 | PC.NURSE ---
Pt comes to ED overflow unit shortly after change of shift (0700.) Pt is calm and cooperative initially, with noted increase of restlessness and agitation. Pt make frequent attempts to get out of bed and requires staff to Chair alarm, bed alarm and camera initiated. Pt has breakfast--armorer technician assists Pt. and bedside and concerned about Pts medications. reports she provided EMS a list of Pts medications at time of transport. At this time there is no list in Pts chart. is unable to confirm medication doses/frequency and was advised she will need to provide documentation or an alternative means of verifying Pts medications in order to complete med rec. reports she will obtain a list from [facility]. PT at bedside for eval this AM. CM speaks with and Pt at bedside re: plans. Pt is currently resting in bed with all above noted fall risk precautions. armorer technician assist Pt with lunch feeding. NAD at this time. Dispo pending.
[2025-01-11 12:17] VITALS: BP 177/83; PULSE 95; RESP 18; TEMP 36.7; O2SAT 98
--- NOTE | 2025-01-11 14:12 | PC.NURSE ---
Pt delivers medication list from home. Upon review of list, some information is illegible d/t being cut off. Medications reviewed with and compared to medication list on file here to identify/confirm a portion of Pts medications. Those medications that could positively be identified were entered into Pts med rec for ordering. Discussed with ROBERTO Scales via [employer] re: ordering.
--- NOTE | 2025-01-11 15:03 | PC.NURSE ---
Received reprt and pt from [facility]; pt in nad, family at bedside. Awiaiting placement
--- NOTE | 2025-01-11 15:30 | PHA.MEDREC ---
Addendum entered by Jeff Hill 01/11/25 16:03: Called [facility] back to confirm Levothyroxine (115mcg not a dose that can be given) and after speaking with them they confirmed pt taking Levyothyroxine 150mcg 1 QD. Addendum entered by Kathrin Dejesus RPh 01/11/25 15:53: reviewed by [facility]. Original Note: Pharmacy Consult ? Medication Reconciliation Pharmacy reviewed med rec done by nursing. Spoke with [facility] pharmacy and they confirmed pt medications confirmed by nurse using med list brought in by pt spouse; also confirmed pt taking Furosemide 20mg QD and Scopline 1mg Q3D, did not have claims for Simvastatin 20mg that family had on list. Spoke with pt family at bedside and pt spouse states she misplaced the list she brought in but was still able to confirmed the medications and confirmed pt taking Furosemide 20mg 1 QD but were not aware of pt taking Scopline Q3D. Pt son confirmed Simvastatin 20mg once at bedtime and states Pt should definitely be taking that medication. and said it might be filled at [facility] on [address]; called and spoke with [facility] and they have no claims for Simvastatin either.
--- NOTE | 2025-01-11 15:39 | PC.NURSE ---
Awaiting pharmacy to verify medications
[2025-01-11 16:59] VITALS: BP 150/71; PULSE 80; RESP 16; TEMP 36.6; O2SAT 97
[2025-01-11 18:00] VITALS: BP 141/84; PULSE 84; RESP 16; TEMP 36.3; O2SAT 90
[2025-01-11] MEDS: Aspirin Enteric Coated 81 MG TABLET.DR PO (21:28)
--- NOTE | 2025-01-11 21:35 | PC.NURSE ---
unable to assess orientation, unable to follow commands, not verbalizing coherently. resistive to care, tense, strong. cleaned up small amount of brown liquid stool. male purewick remains in place. pills tolerated whole in pudding. bed alarm on, camera in place
[2025-01-11 22:28] VITALS: BP 101/57; PULSE 95; RESP 16; TEMP 36.8; O2SAT 95
[2025-01-12] VITALS (7 sets, daily range): BP systolic 98–180; BP diastolic 55–79; PULSE 85–97; RESP 16–93; TEMP 36.5–37.8; O2SAT 95–97; BMI 18.9
--- NOTE | 2025-01-12 07:10 | PC.NURSE ---
Assumed care of patient. Pt is calm, cooperative. A+OX2 to person and place, has dementia. Pt c/o some lower back pain but no other complaints. RR even and unlabored, no visible s/s of distress.
--- NOTE | 2025-01-12 09:42 | PC.NURSE ---
Pt resting in bed, at bedside. RR even and unlabored. No visible s/s of distres..
--- NOTE | 2025-01-12 10:25 | PC.NURSE ---
labs redrawn and sent down d/t missing labels per lab, blood culture set 1 all set per lab, tech name and time drawn provided to lab.
[2025-01-12 10:30] LABS: MANUAL DIFF FLAG NO
[2025-01-12 10:35] LABS: Hematocrit 38.6 % (42.0-52.0); Hemoglobin 12.3 g/dl (14.0-18.0); Imm Gran Abs Auto 0.05 X10*3/uL (0.00-0.03); Imm Gran Pct Auto 0.4 % (0.0-0.4); Lymphocytes Absolute Auto 0.8 X10*3/uL (1.2-4.9); Mean Corpuscular HGB Conc 31.9 g/dl (31.0-36.0); Mean Corpuscular Hemoglobin 27.5 pg (27.0-33.0); Mean Corpuscular Volume 86.2 fL (80.0-98.0); NRBC Abs Auto 0.000 X10*3/uL (0.0-0.012); NRBC Pct Auto 0.0 /100WBC (0.0-0.2); Platelet Count 298 X10*3/uL (160-400); Red Blood Count 4.48 X10*6/uL (4.60-5.80); White Blood Count 11.9 X10*3/uL (4.8-10.8)
[2025-01-12 10:38] LABS: COVID-19 Test Negative (Negative); IDNOW Serial# 55D5AD1C
[2025-01-12 11:01] LABS: Alanine Aminotransferase < 6 U/L (0-40); Albumin Level 3.8 g/dL (3.5-5.0); Alkaline Phosphatase 93 U/L (39-117); Anion Gap 13 (12-20); Aspartate Amino Transferase 47 U/L (5-37); Blood Urea Nitrogen 20 mg/dL (9-16); Calcium 9.0 mg/dL (8.4-10.2); Carbon Dioxide 27 mmol/L (22-29); Chloride 110 mmol/L (96-108); Creatinine Clr Calc Pharmacy 64.1; Estimated Glomerular Filt Rate > 60; Potassium 4.3 mmol/L (3.3-5.1); Sodium 146 mmol/L (135-145); Total Protein 6.6 g/dL (6.5-8.0)
[2025-01-12] MEDS: cefEPime HCl/D5W 2 GM/50 ML PIGGYBACK IV (11:17)
--- NOTE | 2025-01-12 12:10 | MHC.CM.ED ---
Patient remains in ER. Received notification from Martha FATIMA that patient will be admitted for pneumonia. Patient was admitted by Renee MEJIA. Received notification that patient does not want to be admitted and wants to be d/c'd home with physical therapy at home. Met with patient and , Sarah, in regards to discharge planning. Both verify they want patient to d/c home with VNA. Patient is not active with a VNA at this time. Patient's daughter, Tessy, updated via telephone. Tessy is en route to ER to speak with patient and . Abby MEJIA and Martha FATIMA aware. Continue to monitor for d/c needs.
--- NOTE | 2025-01-12 13:28 | P.HPHOSP_ITS ---
History of Present Illness Date of Service: 01/12/25 Attending physician on admission: Tony Balderrama Chief Complaint: falls, pneumonia This is an 84-year-old male with a history of Parkinson's disease who initially was brought into the hospital after mechanical fall. Patient was placed on physician observation with plan for PT evaluation and possible short-term rehab placement. While the patient was in the emergency department he developed a low-grade fever. A chest x-ray was obtained which showed right basilar airspace disease and possible small right pleural effusion. He was started on IV antibiotics and admission was requested. Patient and at the bedside initially requested to be discharged home with oral antibiotics, however later changed their mind and agreed for admission for IV antibiotics. Review of Systems 2 Review of Systems: Yes all other systems are reviewed and are negative Constitutional: Constitutional: Denies chills [facility] Medical History Dementia with behavioral disturbance Cholecystitis HLD (hyperlipidemia) HTN (hypertension) GERD (gastroesophageal reflux disease) Parkinsons Social History Household Members: Spouse Housing: House Do you presently have visiting nurse or other home services: No Alcohol intake: never Patient Tobacco Use Status: Never used Tobacco Smoked in Last 30 Days: No e-Cigarette/Vaping Use: Never Used Use of substances other than those prescribed or required for medical reasons: No Advance Directives: Yes Advance Directives Information Provided: Yes Advance Directives on File: No Do you have a plan to hurt others: No Plan service: Yes Meds Allergies Allergy/AdvReac Type Severity Reaction Status Date / Time mirabegron (From Myrbetriq) Allergy Severe rash Verified 01/10/25 21:44 Opioids - Morphine Analogues Allergy Intermediate rash Verified 01/10/25 21:44 oxybutynin Allergy Intermediate rash Verified 01/10/25 21:44 Active Medications: Current Medications Aspirin (Aspirin Enteric Coated 81 Mg Tablet.) 81 mg PO BEDTIME [facility] Last Admin: 01/11/25 21:28 Dose: 81 mg Atorvastatin Calcium (Atorvastatin Calcium 10 Mg Tablet) 10 mg PO BEDTIME [facility] Last Admin: 01/11/25 21:33 Dose: 10 mg Carbidopa/Levodopa (Carbidopa/Levodopa 25/100 Tablet) 1.5 tab PO QID [facility] Last Admin: 01/12/25 13:15 Dose: 1.5 tab Finasteride (Finasteride 5 Mg Tablet) 5 mg PO DAILY [facility] Last Admin: 01/12/25 08:35 Dose: 5 mg Levothyroxine Sodium (Levothyroxine Sodium 150 Mcg Tablet) 150 mcg PO DAILY@0600 [facility] Last Admin: 01/12/25 06:45 Dose: 150 mcg Melatonin (Melatonin 3 Mg Tablet) 3 mg PO BEDTIME [facility] Last Admin: 01/11/25 21:33 Dose: 3 mg Omeprazole (Omeprazole 20 Mg Capsule.Dr) 20 mg PO BID@0630,1630 [facility] Last Admin: 01/12/25 06:45 Dose: 20 mg Pramipexole Dihydrochloride (Pramipexole Di-Hcl 0.25 Mg Tablet) 0.75 mg PO BEDTIME [facility] Last Admin: 01/11/25 21:28 Dose: 0.75 mg Home Medications ?Medication ?Instructions ?Recorded ?Confirmed ?Last Taken ?Type aspirin 81 mg tablet,delayed 81 mg PO BEDTIME 11/24/23 01/11/25 2 Days Ago History release ~01/09/25 calcium carbonate 500 mg PO DAILY@1200 4 01/11/25 2 Days Ago History ~01/09/25 finasteride 5 mg tablet 5 mg PO DAILY 11/24/2301/11 2 Days Ago History ~01/09/25 melatonin 3 mg tablet 3 mg PO BEDTIME Insomnia 03/0601/11/25 2 Days Ago History ~01/09/25 omeprazole 20 mg tablet,delayed 20 mg PO BID@0630,1630 11/24/23 01/11/25 2 Days Ago History release ~01/09/25 pramipexole 0.25 mg tablet 0.75 mg PO BEDTIME 11/24/23 01/11/25 2 Days Ago History ~01/09/25 simvastatin 40 mg tablet 20 mg PO BEDTIME 11/24/23 2 Days Ago History ~01/09/25 carbidopa 25 mg-levodopa 100 mg 1.5 tab PO QID 5 01/11/25 2 Days Ago History tablet ~01/09/25 furosemide 20 mg tablet 20 mg PO DAILY 01/11/2512/14 2 Days Ago History ~01/09/25 levothyroxine 150 mcg tablet 150 mcg PO DAILY@0600 01/11/25 2 Days Ago History ~01/09/25 Physical Exam 2 Vital Signs and Narrative: Vital Signs: Last Vital Signs Temp 97.7 F 01/12/25 09:46 Pulse 85 01/12/25 09:46 Resp 18 01/12/25 09:46 BP 137/55 L 01/12/25 07:02 Pulse Ox 96 01/12/25 09:46 O2 Del Method Room Air 01/12/25 09:46 BMI result Body Mass Index 19.5 Const: General: alert and awake Nutritional Appearance: average body habitus Resp: Effort & Inspection: normal respiratory effort, able to speak in complete sentences, no respiratory distress and no use of accessory muscles Cardio: Rate: regular rate GI: Inspection: No distended Palpation (GI): Soft to palpation Skin: Other: multiple scabs on b/l knees Results Labs 01/12/25 10:20 01/12/25 10:20 Labs: Laboratory Results - last 24 hr 01/12/25 01/12/25 10:08 10:20 MCV 86.2 MCH 27.5 MCHC 31.9 RDW 14.6 Plt Count 298 MPV 9.6 Immature Gran % (Auto) 0.4 Neut % (Auto) 83.8 H Lymph % (Auto) 6.3 L Pike % (Auto) 9.1 Eos % (Auto) 0.1 Baso % (Auto) 0.3 Lymph # (Auto) 0.8 L Pike # (Auto) 1.1 Eos # (Auto) 0.0 Baso # (Auto) 0.0 Abs Immat Gran (auto) 0.05 H Absolute Neuts (auto) 10.0 H Absolute Nucleated RBC 0.000 Nucleated RBC % (auto) 0.0 Anion Gap 13 Estim Creat Clear Calc 64.1 Estimated GFR > 60 Random Glucose 110 Lactic Acid 1.7 Calcium 9.0 Total Bilirubin 0.7 Direct Bilirubin 0.3 AST 47 H ALT < 6 Alkaline Phosphatase 93 Total Protein 6.6 Albumin 3.8 COVID-19 (LARISA) Negative COVID-19 Clin Com See Note Assessment and Plan (1) Pneumonia: Status: Acute Plan This is an 84-year-old male with a history of dementia, metastatic thyroid cancer cancer who initially presents to the emergency department after mechanical fall found to have pneumonia Pneumonia with parapneumonic effusion PSI/PORT score 102 Continue IV ceftriaxone, azithromycin Given pleural effusion would recommend repeat imaging following treatment to ensure resolution mild hypernatremia sodium 146 IV fluid follow BMP Mechanical fall Seen by Physical therapy - recommended short-term rehab Patient and family currently undecided regarding short-term rehab Parkinson's disease Continue sinemet HLD Continue statin Hypothyroidism Continue Synthroid DVT prophylaxis-heparin Patient will likely require 2 midnight stay in the hospital for management of pneumonia requiring IV antibiotic Quality Stroke Does the patient have a stroke diagnosis?: No VTE Prior VTE?: No VTE Risk Level:: Medical - moderate - high VTE Device Contraindication: N/A - Device Ordered VTE Drug Contraindication: N/A - Med Ordered
[2025-01-12] MEDS: Lactated Ringers 1,000 ML 80 ML IVCONT ×2 (14:39→23:52)
[2025-01-12] MEDS: Aspirin Enteric Coated 81 MG TABLET.DR PO (21:42)
[2025-01-12] MEDS: 0.9 % Sodium Chloride Flush 3 ML SYRINGE IVFLUSH (21:48)
[2025-01-13 04:00] VITALS: BP 147/64; PULSE 73; RESP 18; TEMP 36.3; O2SAT 92
[2025-01-13 06:02] LABS: Hematocrit 34.4 % (42.0-52.0); Hemoglobin 10.9 g/dl (14.0-18.0); Mean Corpuscular HGB Conc 31.7 g/dl (31.0-36.0); Mean Corpuscular Hemoglobin 27.7 pg (27.0-33.0); Mean Corpuscular Volume 87.3 fL (80.0-98.0); NRBC Abs Auto 0.000 X10*3/uL (0.0-0.012); NRBC Pct Auto 0.0 /100WBC (0.0-0.2); Platelet Count 238 X10*3/uL (160-400); Red Blood Count 3.94 X10*6/uL (4.60-5.80); White Blood Count 7.9 X10*3/uL (4.8-10.8)
[2025-01-13 06:16] LABS: Anion Gap 11 (12-20); Blood Urea Nitrogen 13 mg/dL (9-16); Calcium 8.1 mg/dL (8.4-10.2); Carbon Dioxide 25 mmol/L (22-29); Chloride 112 mmol/L (96-108); Creatinine Clr Calc Pharmacy 77.2; Estimated Glomerular Filt Rate > 60; Potassium 3.9 mmol/L (3.3-5.1); Sodium 144 mmol/L (135-145)
[2025-01-13 08:00] VITALS: BP 146/67; PULSE 67; RESP 18; TEMP 36.4; O2SAT 98
[2025-01-13 10:48] LABS: Chlamydia pneumoniae PCR Not Detected (Not Detect.); Coronavirus 229E PCR Not Detected (Not Detect.); Coronavirus HKU1 PCR Not Detected (Not Detect.); Coronavirus NL63 PCR Not Detected (Not Detect.); Coronavirus OC43 PCR Not Detected (Not Detect.); RSV PCR Not Detected (Not Detect.); Rhino/Enterovirus PCR Not Detected (Not Detect.)
[2025-01-13 10:55] LABS: Influenza A H1 PCR Not Detected (Not Detect.); Influenza A H1-2009 PCR Not Detected (Not Detect.); Influenza A H3 PCR Not Detected (Not Detect.); SARS-CoV-2 PCR Not Detected (Not Detect.)
[2025-01-13] MEDS: Lactated Ringers 1,000 ML 80 ML IVCONT (10:56)
[2025-01-13 10:58] LABS: MRSA Nasal PCR NEGATIVE (Negative); SA Nasal PCR NEGATIVE (Negative)
--- NOTE | 2025-01-13 12:04 | HO.PM.IMPN ---
Subjective Subjective Date of Service: 01/13/25 Interval History: No acute issues overnight. Still without an O2 requirement Review of Systems Denies chest pain Denies shortness of breath Denies nausea vomiting diarrhea Denies fever chills Physical Exam Vital Signs: Vital Signs: Last Vital Signs Temp 97.6 F 01/13/25 08:00 Pulse 67 01/13/25 08:00 Resp 18 01/13/25 08:00 BP 146/67 H 01/13/25 08:00 Pulse Ox 98 01/13/25 08:00 O2 Del Method Room Air 01/13/25 08:00 BMI result Body Mass Index 18.9 Const: Other: Soft nontender nondistended normoactive bowel sounds Resp: Other: Clear to auscultation bilaterally no rales rhonchi or wheezes Cardio: Other: No S4; positive S1-S2; no S3 murmurs rubs or gallops GI: Other: Soft nontender nondistended normoactive bowel sounds Extrem: Other: No edema bilaterally Objective Data Active Medications Acetaminophen (Acetaminophen 325 Mg Tablet) 650 mg PO Q6H PRN PRN Reason: Pain, Mild 1-3,fever,headache Aspirin (Aspirin Enteric Coated 81 Mg Tablet.Dr) 81 mg PO BEDTIME [facility] Last Admin: 01/12/25 21:42 Dose: 81 mg Documented By: RUDOLPH Atorvastatin Calcium (Atorvastatin Calcium 10 Mg Tablet) 10 mg PO BEDTIME [facility] Last Admin: 01/12/25 21:42 Dose: 10 mg Documented By: RUDOLPH Calcium Carbonate (Calcium Carbonate 750 Mg Tab.Chew) 750 mg PO Q4H PRN PRN Reason: Heartburn Carbidopa/Levodopa (Carbidopa/Levodopa 25/100 Tablet) 1.5 tab PO QID [facility] Last Admin: 01/13/25 09:28 Dose: 1.5 tab Documented By: LORRAINE Finasteride (Finasteride 5 Mg Tablet) 5 mg PO DAILY [facility] Last Admin: 01/13/25 09:28 Dose: 5 mg Documented By: LORRAINE Heparin Sodium (Porcine) (Heparin Sodium,Porcine 5,000 Unit/Ml Vial) 5,000 unit SUBCUT Q12H [facility] Last Admin: 01/12/25 23:51 Dose: 5,000 unit Documented By: RUDOLPH Ceftriaxone Sodium 1 gm/ (Sodium Chloride) 50 mls @ 100 mls/hr IV Q24H [facility] Last Infusion: 01/12/25 22:18 Dose: Infused Documented By: RUDOLPH Azithromycin 500 mg/ Sodium (Chloride) 250 mls @ 125 mls/hr IV Q24H [facility] Last Infusion: 01/12/25 16:03 Dose: Infused Documented By: YODIT Lactated Ringer's (Lr) 1,000 mls @ 80 mls/hr IVCONT .[id number] [facility] Last Admin: 01/13/25 10:56 Dose: 80 mls/hr Documented By: LORRAINE Levothyroxine Sodium (Levothyroxine Sodium 150 Mcg Tablet) 150 mcg PO DAILY@0600 [facility] Last Admin: 01/13/25 05:56 Dose: 150 mcg Documented By: RUDOLPH Magnesium Hydroxide (Milk Of Magnesia 30 Ml Oral.Susp) 30 ml PO DAILY PRN PRN Reason: Constipation Melatonin (Melatonin 3 Mg Tablet) 3 mg PO BEDTIME [facility] Last Admin: 01/12/25 21:40 Dose: 3 mg Documented By: RUDOLPH Omeprazole (Omeprazole 20 Mg Capsule.Dr) 20 mg PO BID@0630,1630 [facility] Last Admin: 01/13/25 05:55 Dose: 20 mg Documented By: RUDOLPH Ondansetron HCl (Ondansetron Hcl 4 Mg/2 Ml Vial) 4 mg IVPUSH Q8H PRN PRN Reason: Nausea and Vomiting Pramipexole Dihydrochloride (Pramipexole Di-Hcl 0.25 Mg Tablet) 0.75 mg PO BEDTIME [facility] Last Admin: 01/12/25 21:41 Dose: 0.75 mg Documented By: RUDOLPH Sodium Chloride (0.9 % Sodium Chloride Flush 3 Ml Syringe) 3 ml IVFLUSH QSHIFT [facility] Last Admin: 01/13/25 09:31 Dose: Not Given Documented By: LORRAINE Non-Admin Reason: IV Running Labs 01/13/25 05:34 01/13/25 05:34 Labs: Laboratory Results - last 24 hr 01/12/25 01/13/25 15:51 05:34 MCV 87.3 MCH 27.7 MCHC 31.7 RDW 14.6 Plt Count 238 MPV 9.3 L Absolute Nucleated RBC 0.000 Nucleated RBC % (auto) 0.0 Anion Gap 11 L Estim Creat Clear Calc 77.2 Estimated GFR > 60 Random Glucose 100 Calcium 8.1 L D Nasal Screen MRSA (PCR) NEGATIVE Nasal S. aureus Screen NEGATIVE Nasal MRSA/S.aureus Interp SEE NOTE Respiratory Panel George See Note Adenovirus (Rapid PCR) Not Detected B.pert (TEM-PCR) Not Detected B.parapertussis DNA PCR Not Detected C. pneumoniae DNA (PCR) Not Detected Coronavirus OC43 (PCR) Not Detected Coronavirus HKU1 (PCR) Not Detected Coronavirus 229E (PCR) Not Detected Coronavirus NL63 (PCR) Not Detected Human Metapneumovir PCR Not Detected Influenza A (RT-PCR) Not Detected Influenza A (H1) PCR Not Detected Influ A (H1/09) PCR Not Detected Influenza A (H3) PCR Not Detected Influenza B (RT-PCR) Not Detected M. pneumoniae (PCR) Not Detected Parainfluenza 1 (PCR) Not Detected Parainfluenza 2 (PCR) Not Detected Parainfluenza 3 (PCR) Not Detected Parainfluenza 4 (PCR) Not Detected RSV (PCR) Not Detected Entero/Rhino (PCR) Not Detected SARS-CoV-2 RNA (RT-PCR) Not Detected Assessment and Plan (1) Pneumonia: Status: Acute (2) Multiple falls: Status: Acute Plan This is an 84-year-old male with a history of dementia, metastatic thyroid cancer cancer who initially presents to the emergency department after mechanical fall found to have pneumonia 1.Pneumonia with parapneumonic effusion -ceftriaxone/azithromycin (2) -no O2 requirement at present 2.Mild hypernatremia -resolved -follow renal/divalents 3. Mechanical fall -physical therapy - recommended short-term rehab -Patient and family currently undecided regarding short-term rehab 4.Parkinson's disease -Continue sinemet DVT prophylaxis-heparin Full code Requiring ongoing hospitalization for IV antibiotics to treat pneumonia Quality Stroke Does the patient have a stroke diagnosis?: No VTE Prior VTE?: No VTE Risk Level:: Medical - moderate - high VTE Device Contraindication: N/A - Device Ordered VTE Drug Contraindication: N/A - Med Ordered
[2025-01-13 15:13] VITALS: BP 126/67; PULSE 79; RESP 18; TEMP 36.4; O2SAT 98
--- NOTE | 2025-01-13 15:47 | MHC.CM.PN ---
CM MET WITH PT AND WHILE HE WAS IN THE ED, AND ONCE ADMITTED PT LIVES WITH HIS AND PER HER REPORT, TYPICALLY AMBULATES WITH A WALKER INDEPENDENTLY SHE DOES ASSIST WITH SOME CARE/DIRECTION, DUE TO PTS MENTATION PT IS A , HOWEVER DOES NOT HAVE A REHAB BENEFIT HCP ON FILE PCP: SANDOVAL ZARAGOZA IMM DELIVERED DCP: PT IS EXPECTED TO REQUIRE STR BLS TRANSPORT
--- NOTE | 2025-01-13 18:26 | HO.SKINPHOTO ---
Location: Right Knee Foam dressing removed - cleaned area with normal saline, pat dry, xerform, non-adherent gauze, gauze wrap. Patient tolerated well, denied pain. Location: Left knee Foam dressing removed - cleaned area with normal saline, pat dry, xerform, non-adherent gauze, gauze wrap. Patient tolerated well, denied pain.
[2025-01-13 19:15] VITALS: BP 172/61; PULSE 84; RESP 16; TEMP 36
[2025-01-13 19:29] VITALS: O2SAT 98
[2025-01-13] MEDS: Aspirin Enteric Coated 81 MG TABLET.DR PO (20:14)
[2025-01-13 22:32] VITALS: BP 156/62
[2025-01-14] MEDS: Lactated Ringers 1,000 ML 80 ML IVCONT ×2 (01:49→15:31)
[2025-01-14 04:00] VITALS: BP 131/60; PULSE 74; RESP 18; TEMP 36; O2SAT 96
[2025-01-14 08:00] VITALS: BP 174/80; PULSE 75; RESP 17; TEMP 36.1; O2SAT 96
[2025-01-14 09:46] VITALS: BMI 18.9
--- NOTE | 2025-01-14 11:12 | HO.PM.IMPN ---
Subjective Subjective Date of Service: 01/14/25 Interval History: No acute issues overnight Review of Systems Denies chest pain Denies shortness of breath Denies nausea vomiting diarrhea Denies fever chills Physical Exam Vital Signs: Vital Signs: Last Vital Signs Temp 97.0 F 01/14/25 08:00 Pulse 75 01/14/25 08:00 Resp 17 01/14/25 08:00 BP 174/80 H 01/14/25 08:00 Pulse Ox 96 01/14/25 08:00 O2 Del Method Room Air 01/14/25 08:00 BMI result Body Mass Index 18.9 Const: Other: Soft nontender nondistended normoactive bowel sounds Resp: Other: Clear to auscultation bilaterally no rales rhonchi or wheezes Cardio: Other: No S4; positive S1-S2; no S3 murmurs rubs or gallops GI: Other: Soft nontender nondistended normoactive bowel sounds Extrem: Other: No edema bilaterally Objective Data Active Medications Acetaminophen (Acetaminophen 325 Mg Tablet) 650 mg PO Q6H PRN PRN Reason: Pain, Mild 1-3,fever,headache Aspirin (Aspirin Enteric Coated 81 Mg Tablet.) 81 mg PO BEDTIME [facility] Last Admin: 01/13/25 20:14 Dose: 81 mg Documented By: JESÚS Atorvastatin Calcium (Atorvastatin Calcium 10 Mg Tablet) 10 mg PO BEDTIME [facility] Last Admin: 01/13/25 20:14 Dose: 10 mg Documented By: JESÚS Calcium Carbonate (Calcium Carbonate 750 Mg Tab.Chew) 750 mg PO Q4H PRN PRN Reason: Heartburn Carbidopa/Levodopa (Carbidopa/Levodopa 25/100 Tablet) 1.5 tab PO QID [facility] Last Admin: 01/14/25 08:11 Dose: 1.5 tab Documented By: TORO Finasteride (Finasteride 5 Mg Tablet) 5 mg PO DAILY [facility] Last Admin: 01/14/25 08:11 Dose: 5 mg Documented By: TORO Furosemide (Furosemide 20 Mg Tablet) 20 mg PO DAILY [facility]; Protocol Heparin Sodium (Porcine) (Heparin Sodium,Porcine 5,000 Unit/Ml Vial) 5,000 unit SUBCUT Q12H [facility] Last Admin: 01/14/25 01:40 Dose: 5,000 unit Documented By: ANGELI Ceftriaxone Sodium 1 gm/ (Sodium Chloride) 50 mls @ 100 mls/hr IV Q24H [facility] Last Infusion: 01/13/25 22:55 Dose: Infused Documented By: ANGELI Azithromycin 500 mg/ Sodium (Chloride) 250 mls @ 125 mls/hr IV Q24H [facility] Last Infusion: 01/13/25 15:50 Dose: Infused Documented By: LORRAINE Lactated Ringer's (Lr) 1,000 mls @ 80 mls/hr IVCONT .[id number] [facility] Last Admin: 01/14/25 01:49 Dose: 80 mls/hr Documented By: ANGELI Levothyroxine Sodium (Levothyroxine Sodium 150 Mcg Tablet) 150 mcg PO DAILY@0600 [facility] Last Admin: 01/14/25 06:21 Dose: 150 mcg Documented By: ANGELI Magnesium Hydroxide (Milk Of Magnesia 30 Ml Oral.Susp) 30 ml PO DAILY PRN PRN Reason: Constipation Melatonin (Melatonin 3 Mg Tablet) 3 mg PO BEDTIME [facility] Last Admin: 01/13/25 20:14 Dose: 3 mg Documented By: JSEÚS Omeprazole (Omeprazole 20 Mg Capsule.) 20 mg PO BID@0630,1630 [facility] Last Admin: 01/14/25 06:21 Dose: 20 mg Documented By: ANGELI Ondansetron HCl (Ondansetron Hcl 4 Mg/2 Ml Vial) 4 mg IVPUSH Q8H PRN PRN Reason: Nausea and Vomiting Pramipexole Dihydrochloride (Pramipexole Di-Hcl 0.25 Mg Tablet) 0.75 mg PO BEDTIME [facility] Last Admin: 01/13/25 20:14 Dose: 0.75 mg Documented By: JESÚS Sodium Chloride (0.9 % Sodium Chloride Flush 3 Ml Syringe) 3 ml IVFLUSH QSHIFT [facility] Last Admin: 01/14/25 08:12 Dose: Not Given Documented By: TORO Non-Admin Reason: IV Running Labs 01/13/25 05:34 01/13/25 05:34 Microbiology Microbiology Results: Microbiology 01/12/25 10:20 Blood Culture - Preliminary Blood - Venous No growth after 24 hours. 01/12/25 10:08 Blood Culture - Preliminary Blood - Venous No growth after 24 hours. Assessment and Plan (1) Pneumonia: Status: Acute (2) Multiple falls: Status: Acute Plan This is an 84-year-old male with a history of dementia, metastatic thyroid cancer cancer who initially presents to the emergency department after mechanical fall found to have pneumonia 1.Pneumonia with parapneumonic effusion -ceftriaxone/azithromycin (3) -no O2 requirement at present 2.Mild hypernatremia -resolved -follow renal/divalents 3. Mechanical fall -physical therapy - recommended short-term rehab -Patient and family willing to accept short-term rehab 4.Parkinson's disease -Continue sinemet DVT prophylaxis-heparin Full code Requiring ongoing hospitalization for IV antibiotics to treat pneumonia Quality Stroke Does the patient have a stroke diagnosis?: No VTE Prior VTE?: No VTE Risk Level:: Medical - moderate - high VTE Device Contraindication: N/A - Device Ordered VTE Drug Contraindication: N/A - Med Ordered
--- NOTE | 2025-01-14 12:13 | HO.WOUND ---
Wound Consult: Initial 84 yr old male admitted to [facility] on 01/12/25 - See progress notes and H&P for detailed history. Wound consult placed for bilateral knees, left elbow . Patient agreeable to assessment and photo documentation. Patients at bedside, reports he has gone to wound care outpatient in the past. reports history of frequent falls recently, and that wounds to his knees have been there for a few weeks. patient also with scattered areas of bruising to body in various stages of healing. with questions, all questions answered at this time. Left elbow Etiology: abrasion Measurements: 0.7cm x 1.2cm x 0.1cm Wound Bed: dry red Drainage / Odor: none Edges: ? dry Raul wound: ? No Induration, Fluctuance or Warmth noted Pain: none Goals of Treatment: ? moist healing with xeroform Left knee Right knee Etiology: Bilateral knees - multiple abrasions Wound Bed: mixed moist red/pink and yellow bases Drainage / Odor: small serosanguineous - no odor Edges: ? moist macerated white Raul wound: ? No Induration, Fluctuance or Warmth noted Pain: none Goals of Treatment: ? drainage absorption/moisture balance with durafiber ag Recommendations: 1. Turn and Reposition every 2 hours and as needed for patient comfort. Use pillows or wedges to support off loading positions. 2. Off Load all bony prominences with use of pillows and heel boots if needed. Apply Preventative foams where needed. 3. Monitor for incontinence and moisture control, use barrier creams when needed for prevention and treatment. 4. Provide adequate and supplemental nutrition. 5. Order or Continue low air loss mattress. 6. When applicable maintain blood glucose levels per Providers order. Left elbow: cleanse with normal saline, apply skin prep raul wound, apply xeroform, cover with foam, change daily and PRN. Bilateral knees: cleanse with normal saline, apply skin prep raul wound, apply durafiber ag to wound bed, cover with foam, change daily and PRN. Re-consult wound care Nurse for wound deterioration or wound changes.
--- NOTE | 2025-01-14 14:00 | MHC.CLN ---
NUTRITION DIET RX: REGULAR, GROUND CONSISTENCY. REVIEW OF WEIGHT HX SHOWS WEIGHT LOSS X 3 MONTHS -4.5%, NOT SIGNIFICANT. TAKES ENSURE AT HOME. ADDING ENSURE TID TO PROVIDE 1050 KCALS, 60 G PROTEIN. QUALIFIES MODERATELY MALNOURISHED IN THE CONTEXT OF CHRONIC ILLNESS. PO INTKE 25-50%. FOLLOW FOR PO INTAKE AND DIET TOLERANCE. SEE CLINICAL NUTRITION ASSESSMENT 01/14/25.
[2025-01-14 14:05] VITALS: BP 174/80; PULSE 75; O2SAT 96
--- NOTE | 2025-01-14 15:10 | MHC.CM.PN ---
per rounds pt will be dcd tomorrow pt accepted at [facility]
[2025-01-14 15:51] VITALS: BP 117/56; PULSE 77; RESP 18; TEMP 36.1; O2SAT 94
[2025-01-14 19:21] VITALS: BP 154/67; PULSE 80; RESP 20; TEMP 36.6; O2SAT 95
[2025-01-14] MEDS: Aspirin Enteric Coated 81 MG TABLET.DR PO (21:10)
--- NOTE | 2025-01-15 | ECG_ITS ---
Test Reason : QTC Blood Pressure : */* mmHG Vent. Rate : 74 BPM Atrial Rate : 74 BPM P-R Int : 140 ms QRS Dur : 84 ms QT Int : 408 ms P-R-T Axes : 60 14 40 degrees QTcB Int : 452 ms Sinus rhythm with Premature supraventricular complexes Otherwise normal ECG When compared with ECG of 10-Jan-2025 21:40, Premature supraventricular complexes are now Present Questionable change in QRS axis Nonspecific T wave abnormality no longer evident in Lateral leads Referred By: Caro Crespo Electronically Signed By: Harish Souza
[2025-01-15 03:57] VITALS: BP 150/62; PULSE 74; RESP 20; TEMP 36.5; O2SAT 96
[2025-01-15] MEDS: Lactated Ringers 1,000 ML 80 ML IVCONT (04:16)
[2025-01-15 07:35] VITALS: BP 120/56; PULSE 73; RESP 18; TEMP 36.6; O2SAT 96
[2025-01-15 09:57] LABS: Alanine Aminotransferase 11 U/L (0-40); Albumin Level 3.4 g/dL (3.5-5.0); Alkaline Phosphatase 85 U/L (39-117); Anion Gap 9 (12-20); Aspartate Amino Transferase 26 U/L (5-37); Blood Urea Nitrogen 10 mg/dL (9-16); Calcium 8.5 mg/dL (8.4-10.2); Carbon Dioxide 29 mmol/L (22-29); Chloride 110 mmol/L (96-108); Creatinine Clr Calc Pharmacy 69.4; Estimated Glomerular Filt Rate > 60; Potassium 4.0 mmol/L (3.3-5.1); Sodium 144 mmol/L (135-145); Total Protein 6.1 g/dL (6.5-8.0)
--- NOTE | 2025-01-15 13:07 | P.PNIM_ITS ---
Subjective Subjective Date of Service: 01/15/25 Interval History: Pt seen this am, at bedside, Pt is bit somnolent, but arousable to verbal stimuli, denies any sx, states he wants to eat cereal. states he is usually more awake and interactive at baseline. PT received Ativan this am for restlessness, later in the afternoon pt became more awake and alert and was able to sit in chair and eat his food. Review of Systems -ve for all sx Physical Exam 2 Exam: Exam: arousable to verbal stimuli, unable to open eyes per thats his baseline heart RRR lungs ON RA, CTAB no LEROY abdomen soft NT moving all exstremities, CN grossly intact Vital Signs: Vital Signs: Last Vital Signs Temp 97.9 F 01/15/25 07:35 Pulse 73 01/15/25 07:35 Resp 18 01/15/25 07:35 BP 120/56 L 01/15/25 07:35 Pulse Ox 96 01/15/25 07:35 O2 Del Method Room Air 01/15/25 07:35 BMI result Body Mass Index 18.9 Objective Data Active Medications Acetaminophen (Acetaminophen 325 Mg Tablet) 650 mg PO Q6H PRN PRN Reason: Pain, Mild 1-3,fever,headache Aspirin (Aspirin Enteric Coated 81 Mg Tablet.) 81 mg PO BEDTIME [facility] Last Admin: 01/14/25 21:10 Dose: 81 mg Documented By: ANGELI Atorvastatin Calcium (Atorvastatin Calcium 10 Mg Tablet) 10 mg PO BEDTIME [facility] Last Admin: 01/14/25 21:10 Dose: 10 mg Documented By: ANGELI Calcium Carbonate (Calcium Carbonate 750 Mg Tab.Chew) 750 mg PO Q4H PRN PRN Reason: Heartburn Carbidopa/Levodopa (Carbidopa/Levodopa 25/100 Tablet) 1.5 tab PO QID [facility] Last Admin: 01/15/25 11:11 Dose: Not Given Documented By: LOTTIE Non-Admin Reason: Patient sedated. Finasteride (Finasteride 5 Mg Tablet) 5 mg PO DAILY [facility] Last Admin: 01/14/25 08:11 Dose: 5 mg Documented By: TOOR Furosemide (Furosemide 20 Mg Tablet) 20 mg PO DAILY [facility]; Protocol Heparin Sodium (Porcine) (Heparin Sodium,Porcine 5,000 Unit/Ml Vial) 5,000 unit SUBCUT Q12H [facility] Last Admin: 01/15/25 01:23 Dose: 5,000 unit Documented By: ANGELI Ceftriaxone Sodium 1 gm/ (Sodium Chloride) 50 mls @ 100 mls/hr IV Q24H [facility] Last Infusion: 01/14/25 21:49 Dose: Infused Documented By: ANGELI Azithromycin 500 mg/ Sodium (Chloride) 250 mls @ 125 mls/hr IV Q24H [facility] Last Infusion: 01/14/25 15:32 Dose: Infused Documented By: LOTTIE Levothyroxine Sodium (Levothyroxine Sodium 150 Mcg Tablet) 150 mcg PO DAILY@0600 [facility] Last Admin: 01/15/25 05:55 Dose: 150 mcg Documented By: ANGELI Magnesium Hydroxide (Milk Of Magnesia 30 Ml Oral.Susp) 30 ml PO DAILY PRN PRN Reason: Constipation Melatonin (Melatonin 3 Mg Tablet) 3 mg PO BEDTIME [facility] Last Admin: 01/14/25 21:10 Dose: 3 mg Documented By: ANGELI Omeprazole (Omeprazole 20 Mg Capsule.Dr) 20 mg PO BID@0630,1630 [facility] Last Admin: 01/15/25 05:55 Dose: 20 mg Documented By: ANGELI Ondansetron HCl (Ondansetron Hcl 4 Mg/2 Ml Vial) 4 mg IVPUSH Q8H PRN PRN Reason: Nausea and Vomiting Pramipexole Dihydrochloride (Pramipexole Di-Hcl 0.25 Mg Tablet) 0.75 mg PO BEDTIME [facility] Last Admin: 01/14/25 21:10 Dose: 0.75 mg Documented By: ANGELI Sodium Chloride (0.9 % Sodium Chloride Flush 3 Ml Syringe) 3 ml IVFLUSH QSHIFT [facility] Last Admin: 01/15/25 09:10 Dose: Not Given Documented By: LOTTIE Non-Admin Reason: Previously Administered Labs 01/13/25 05:34 01/15/25 08:41 Labs: Laboratory Results - last 24 hr 01/15/25 01/15/25 08:41 08:42 Hold Purple Top SEE NOTE Anion Gap 9 L Estim Creat Clear Calc 69.4 Estimated GFR > 60 Random Glucose 89 Calcium 8.5 Total Bilirubin 0.4 AST 26 ALT 11 Alkaline Phosphatase 85 Total Protein 6.1 L Albumin 3.4 L Microbiology Microbiology Results: Microbiology 01/12/25 10:20 Blood Culture - Preliminary Blood - Venous No growth after 48 hours. 01/12/25 10:08 Blood Culture - Preliminary Blood - Venous No growth after 48 hours. Assessment and Plan (1) Pneumonia: Status: Acute (2) Dementia: Status: Acute (3) BPH (benign prostatic hyperplasia): Status: Acute Plan This is an 84-year-old male with a history of dementia, metastatic thyroid cancer cancer who initially presents to the emergency department after mechanical fall found to have pneumonia 1.Pneumonia with parapneumonic effusion -ceftriaxone/azithromycin (3) -no O2 requirement at present 2.Mild hypernatremia -resolved 3. Mechanical fall -physical therapy - recommended short-term rehab -Patient and family willing to accept short-term rehab 4.Parkinson's disease -Continue sinemet Urinary retention BPH cont finesteride aspiration risk: speech eval Hypothyroidism: cont levothyroxine PT reccs STR, diet regular dvt px: heparin sc Quality Stroke Does the patient have a stroke diagnosis?: No VTE Prior VTE?: No VTE Risk Level:: Medical - moderate - high VTE Device Contraindication: N/A - Device Ordered VTE Drug Contraindication: N/A - Med Ordered
[2025-01-15 13:28] VITALS: BP 176/74; PULSE 77
--- NOTE | 2025-01-15 13:45 | PC.NURSE ---
BP elevated at approximately 1330- Dr. Crespo aware. Hx of Parkinson's and tremulous at baseline. Patient denies pain. Received morning medications this afternoon due to patient's sedation in the morning.
[2025-01-15 14:58] VITALS: BP 150/82; PULSE 76
--- NOTE | 2025-01-15 15:18 | PM.DS ---
DS: Providers Provider Date of Service: 01/15/25 Date of admission: 01/12/25 13:28 Date of discharge: 01/15/25 Primary care physician: Joann Piedra MD Consults: 01/12/25 21:56 Consult to Wound Care Routine Consulting Provider: [facility] Wound Care Management Reason for consultation: abrasion to bilateral knees and left elbow. DS: Diagnosis Discharge Diagnosis (1) Pneumonia: Status: Acute (2) Dementia: Status: Acute (3) BPH (benign prostatic hyperplasia): Status: Acute DS: Summary Hospital Course Hospital Course: This is an 84-year-old male with a history of dementia, metastatic thyroid cancer cancer who initially presents to the emergency department after mechanical fall found to have pneumonia 1.Pneumonia with parapneumonic effusion -ceftriaxone/azithromycin discharged on augmentin and azithromycin for 1 more day to complete 5 days course -no O2 requirement at present 2.Mild hypernatremia -resolved 3. Mechanical fall -physical therapy - recommended short-term rehab -Patient and family willing to accept short-term rehab 4.Parkinson's disease -Continue sinemet Urinary retention BPH cont finasteride aspiration risk: speech eval Hypothyroidism: cont levothyroxine Time Attestation Discharge Coordination Time (in mins): 40 mins Quality: Safe Use of Opioids Does Pt have an Active Cancer Diagnosis on the Problem List?: No Quality: Stroke Does the patient have a stroke diagnosis?: No Physical Exam Vital Signs: Vital Signs: Last Vital Signs Temp 97.9 F 01/15/25 07:35 Pulse 76 01/15/25 14:58 Resp 18 01/15/25 07:35 BP 150/82 H 01/15/25 14:58 Pulse Ox 96 01/15/25 07:35 O2 Del Method Room Air 01/15/25 07:35 BMI result Body Mass Index 18.9 DS: Data Data Completed and Pending Labs on day of discharge: Laboratory Results - last 24 hr 01/15/25 01/15/25 08:41 08:42 Hold Purple Top SEE NOTE Sodium 144 Potassium 4.0 Chloride 110 H Carbon Dioxide 29 Anion Gap 9 L BUN 10 Creatinine 0.69 Estim Creat Clear Calc 69.4 Estimated GFR > 60 Random Glucose 89 Calcium 8.5 Total Bilirubin 0.4 AST 26 ALT 11 Alkaline Phosphatase 85 Total Protein 6.1 L Albumin 3.4 L Preliminary micro results at discharge 01/12/25 10:20 Blood Culture - Preliminary Blood - Venous No growth after 48 hours. 01/12/25 10:08 Blood Culture - Preliminary Blood - Venous No growth after 48 hours. Discharge Plan Discharge Anticipated Discharge Date/Time: 01/15/25 15:12 Patient Disposition: Xfer SNF Discharge Diagnosis: PNA Hypernatremia Referrals: Joann Piedra MD [Primary Care Provider, Endocrinology] - 1 Week Discharge Medications: New azithromycin 500 mg Tablet 500 mg PO Q24H 1 Days Qty: 1 0RF amoxicillin-pot clavulanate [Augmentin] 500-125 mg tablet 1 tab PO BID 1 Days Qty: 2 0RF Continued melatonin 3 mg Tablet 3 mg PO BEDTIME aspirin 81 mg Tablet,Delayed Release (Dr/Ec) 81 mg PO BEDTIME simvastatin 40 mg Tablet 20 mg PO BEDTIME pramipexole 0.25 mg Tablet 0.75 mg PO BEDTIME finasteride 5 mg Tablet 5 mg PO DAILY omeprazole 20 mg Tablet,Delayed Release (Dr/Ec) 20 mg PO BID@0630,1630 calcium carbonate 500 mg calcium (1,250 mg) Tablet 500 mg PO DAILY@1200 furosemide 20 mg Tablet 20 mg PO DAILY levothyroxine 150 mcg Tablet 150 mcg PO DAILY@0600 carbidopa-levodopa 25-100 mg Tablet 1.5 tab PO QID Discharge Orders: Discharge Order (Routine); Ordered 01/15/25 Ordered By: Caro Crespo Activity on Discharge: As tolerated Stand Alone Forms: Patient Portal Discharge page Print Language: Irish Care Plan Goals: Pt presented with mechanical fall and was found to have PNA. He is being dc on Abx to complete 5 days course. Health Concerns: as above Plan of Treatment: as above Assessment: as above
--- NOTE | 2025-01-15 15:25 | MHC.CM.PN ---
DP: PT HAS BEEN MEDICALLY CLEARED FOR DC TO STR AT [facility]. BLS TRANSPORT BOOKED FOR 5 PM VIA [facility]. RN/PROVIDER UPDATED. AT BEDSIDE AND AGREEABLE TO PLAN. CENTER AWARE OF TRANSPORT TIME.
--- NOTE | 2025-01-15 16:27 | MHC.SL.SWA ---
Speech Pathologist Impression: Mild oropharyngeal dysphagia Risk of Aspiration Due to: Cognition, hx of dyspahgia, hx of PNA Dysphasia Diet Status: Recommend continued speech therapy for the treatment of dysphagia through rehab facility ([facility]) Liquid Consistency and Strategies for Safe Swallow: Liquid Intake Recommendation: Thin Liquid Intake Strategies: Solid Food Consistency: Dietary Recommendations: Grnd/Mech Altered (NDD2) Additional Modifications to Solid Foods: Oral Medication Intake: Whole with Liquid Please contact the pharmacy regarding appropriate crushable or liquid drug formulations that are available whenever modified delivery is recommended. Compensatory Strategies and Precautions to be Taken for Safe Swallow: Supervision While Eating and Drinking for Safe Swallow: Intermittent Supervision Foods to Avoid: Mixed consistencies; hard, chewy, or crumbly foods Swallowing Recommended Treatments: Recommendation for Speech: Inpatient Speech Therapy Speech Therapy through Rehab Facility Comment: Patient with plans to discharge to [facility], recommend continuing dysphagia tx at next level of care. Frequency/Duration: Continue TANK FURNACE OPERATOR at next level of care Date Range for Service Req: Timeline to reassess: Subpoena Server Clinican/Clinical Fellow: No Supervisory Statement: I have reviewed and agree with the student/clinical fellow's documentation: No Speech Language Pathologist: Lizette Mas M.A., CCC-TANK FURNACE OPERATOR
[2025-01-15 17:09] VITALS: BP 154/62; PULSE 75; RESP 20; TEMP 36.7; O2SAT 97
[2025-01-16 00:14] LABS: Strep Pneumo Ag urine Not Detected (Not Detected)
== END 2025-01-15 17:13 | disposition skilled nursing facility (03) | DRG 194 ==
LOC: HO.ED 01-11 15:02 → HO.EDOVER 01-12 11:25 → HO.S3 01-12 19:39
PROVIDERS: Nurse Practitioner Family; Admitting Provider Physician Assistant Medical; Emergency Provider Emergency Medicine; PCP Internal Medicine; Visit Provider Hospitalist
DX: J18.9 Pneumonia, unspecified organism (principal); E87.0 Hyperosmolality and hypernatremia; J91.8 Pleural effusion in other conditions classified elsewhere; E03.9 Hypothyroidism, unspecified; W19.XXXA Unspecified fall, initial encounter; G20.A1 Parkinson's disease without dyskinesia, without mention of fluctuations; N40.1 Benign prostatic hyperplasia with lower urinary tract symptoms; R33.8 Other retention of urine; R29.6 Repeated falls; E78.5 Hyperlipidemia, unspecified; F02.80 Dementia in other diseases classified elsewhere, unspecified severity, without behavioral disturbance, psychotic disturbance, mood disturbance, and anxiety; Z20.822 Contact with and (suspected) exposure to COVID-19; Z85.850 Personal history of malignant neoplasm of thyroid; Z79.82 Long term (current) use of aspirin; Z79.890 Hormone replacement therapy; Z79.899 Other long term (current) drug therapy
CPT/HCPCS: 36415; 70450; 71045; 72125; 80048; 80053; 80076; 80307; 81001; 82550; 83605; 83735; 84484; 85025; 85027; 87040; 87449; 87502; 87633; 87635; 87640; 87641; 87899; 92610; 93005; 97162; 97530; 99285; J0456; J0692; J0696; J1644; J7120

== ENCOUNTER → 2025-01-10 21:36 | Outpatient (BNV) | payer MEDICARE, OTHER, SELFPAY | PROVIDERS: Emergency Provider Emergency Medicine; Visit Provider Specialist | DX: S09.90XA Unspecified injury of head, initial encounter (principal); G20.C Parkinsonism, unspecified; W18.39XA Other fall on same level, initial encounter | CPT/HCPCS: 70450 ==

== ENCOUNTER → 2025-01-10 21:36 | Outpatient (BNV) | payer MEDICARE, OTHER, SELFPAY | PROVIDERS: Admitting Provider Physician Assistant Medical; Emergency Provider Emergency Medicine; Visit Provider Internal Medicine | DX: R94.31 Abnormal electrocardiogram [ECG] [EKG] (principal); Z04.3 Encounter for examination and observation following other accident | CPT/HCPCS: 93010 ==

== ENCOUNTER → 2025-01-12 09:51 | Outpatient (BNV) | payer MEDICARE, OTHER, SELFPAY | PROVIDERS: Emergency Provider Emergency Medicine; Visit Provider Radiology Diagnostic Radiology | DX: R50.9 Fever, unspecified (principal) | CPT/HCPCS: 71045 ==

== ENCOUNTER 2025-01-12 13:28 | Outpatient (BNV) | payer MEDICARE, OTHER, SELFPAY | END 2025-01-15 13:54 | PROVIDERS: Admitting Provider Physician Assistant Medical; Emergency Provider Emergency Medicine; PCP Internal Medicine; Visit Provider Internal Medicine Cardiovascular Disease | DX: I49.3 Ventricular premature depolarization (principal) | CPT/HCPCS: 93010 ==

== ENCOUNTER → 2025-01-12 13:28 | Outpatient (BNV) | payer MEDICARE, OTHER, SELFPAY | PROVIDERS: Admitting Provider Physician Assistant Medical; Emergency Provider Emergency Medicine; Visit Provider Physician Assistant Medical | DX: J18.9 Pneumonia, unspecified organism (principal); R29.6 Repeated falls | CPT/HCPCS: 99223; 99233 ==